=== PATIENT | male | born 1940 | race Caucasian/White ===

== ENCOUNTER 2017-06-04 10:17 | Inpatient (IN) | payer MEDICARE ==
[2017-06-04] VITALS (22 sets, daily range): BP systolic 79–153; BP diastolic 57–106; PULSE 92–111; RESP 9–38; TEMP 96.3–98.1; O2SAT 80–100
--- NOTE | 2017-06-04 10:28 | PD ---
HPI Chief Complaint: shortness of breath Time Seen by Provider: 10:24 Travel History International Travel<30 days: No Contact w/Intl Traveler<30days: No Traveled to known affect area: No History of Present Illness HPI 76-year-old male with history of heavy smoking, currently smokes about a quarter of a pack of cigarettes daily, here for evaluation of 2 days of shortness of breath. Shortest of breath is at rest, worse with exertion. He is also having chest pain which she describes as a muscle ache. Patient also reports cough productive of greenish sputum. No hemoptysis. The patient has not seen a physician in over 12 years, and is not taking any medications. No history of DVT or PE. No known history of cardiac disease. Allergies-Medications (Allergen,Severity, Reaction): Coded Allergies: No Known Allergies (Unverified , 06/04/17) Reported Meds & Prescriptions Reported Meds & Active Scripts Active No Active Prescriptions or Reported Medications Review of Systems Except as stated in HPI: all other systems reviewed are Neg Physical Exam Narrative GENERAL: Well-developed, thin, cachectic appearing, moderate respiratory distress, speaking a few words at a time. SKIN: Focused skin assessment warm/dry. HEAD: Atraumatic. Normocephalic. EYES: Pupils equal and round. No scleral icterus. No injection or drainage. ENT: Mucous membranes pink and moist. NECK: Trachea midline. No JVD. CARDIOVASCULAR: Tachycardic, regular. RESPIRATORY: No accessory muscle use. Moderate respiratory distress. Speaking a few words at a time. Poor air movement bilaterally. Pursed lip breathing. No rales or rhonchi. Protruding ribs. GASTROINTESTINAL: Abdomen soft, non-tender, nondistended. Hepatic and splenic margins not palpable. MUSCULOSKELETAL: No obvious deformities. No clubbing. No cyanosis. No edema. NEUROLOGICAL: Awake and alert. No obvious cranial nerve deficits. Motor grossly within normal limits. Normal speech. PSYCHIATRIC: Appropriate mood and affect; insight and judgment normal. Data Data Last Documented VS Vital Signs Date Time Temp Pulse Resp B/P (MAP) Pulse Ox O2 Delivery O2 Flow Rate FiO2 06/04/17 13:02 110 26 120/84 (96) 90 Nasal Cannula 5.00 06/04/17 10:45 98.1 Orders Orders Complete Blood Count With Diff (06/04/17 10:24) Comprehensive Metabolic Panel (06/04/17 10:24) B-Type Natriuretic Peptide (06/04/17 10:24) Act Partial Throm Time (Ptt) (06/04/17 10:24) Prothrombin Time / Inr (Pt) (06/04/17 10:24) Ckmb (Isoenzyme) Profile (06/04/17 10:24) Troponin I (06/04/17 10:24) Arterial Blood Gas (Abg) (06/04/17 10:24) Iv Access Insert/Monitor (06/04/17 10:24) Ecg Monitoring (06/04/17 10:24) Oximetry (06/04/17 10:24) Oxygen Administration (06/04/17 10:24) Chest, Single Ap (06/04/17 10:24) Sodium Chloride 0.9% Flush (Ns Flush) (06/04/17 10:30) Methylprednisolone So Succ Inj (Solumedr (06/04/17 10:30) Albuterol-Ipratropium Neb (Duoneb Neb) (06/04/17 10:30) CKMB (06/04/17 10:35) CKMB% (06/04/17 10:35) Ct Pulmonary Angiogram (06/04/17 11:25) Aspirin Chew (Aspirin Chew) (06/04/17 11:30) Ct Brain W & W/O Iv Contrast (06/04/17 ) Iohexol 350 Inj (Omnipaque 350 Inj) (06/04/17 12:48) Admit Order (Ed Use Only) (06/04/17 12:54) Heparin Inj (Heparin Inj) (06/04/17 19:15) Heparin Inj (Heparin Inj) (06/04/17 19:15) Heparin-D5w 25,000 U/250 Ml (Heparin-D5w (06/04/17 13:15) Act Partial Throm Time (Ptt) (06/04/17 13:12) Prothrombin Time / Inr (Pt) (06/04/17 13:12) Cbc No Diff, Includes Plts (06/04/17 13:12) Cbc No Diff, Includes Plts (06/07/17 06:00) Act Partial Throm Time (Ptt) (06/04/17 20:12) Occult Blood (Hemoccult) Stool (06/04/17 13:12) Labs Laboratory Tests Test 06/04/17 10:35 06/04/17 10:48 White Blood Count 12.5 TH/MM3 Red Blood Count 4.56 MIL/MM3 Hemoglobin 13.9 GM/DL Hematocrit 42.8 % Mean Corpuscular Volume 93.7 FL Mean Corpuscular Hemoglobin 30.5 PG Mean Corpuscular Hemoglobin Concent 32.5 % Red Cell Distribution Width 13.3 % Platelet Count 281 TH/MM3 Mean Platelet Volume 6.3 FL Neutrophils (%) (Auto) 90.9 % Lymphocytes (%) (Auto) 5.8 % Monocytes (%) (Auto) 3.0 % Eosinophils (%) (Auto) 0.1 % Basophils (%) (Auto) 0.2 % Neutrophils # (Auto) 11.4 TH/MM3 Lymphocytes # (Auto) 0.7 TH/MM3 Monocytes # (Auto) 0.4 TH/MM3 Eosinophils # (Auto) 0.0 TH/MM3 Basophils # (Auto) 0.0 TH/MM3 CBC Comment DIFF FINAL Differential Comment Prothrombin Time 10.9 SEC Prothromb Time International Ratio 1.0 RATIO Activated Partial Thromboplast Time 27.9 SEC Blood Urea Nitrogen 19 MG/DL Creatinine 0.74 MG/DL Random Glucose 170 MG/DL Total Protein 7.7 GM/DL Albumin 3.7 GM/DL Calcium Level 9.5 MG/DL Alkaline Phosphatase 114 U/L Aspartate Amino Transf (AST/SGOT) 86 U/L Alanine Aminotransferase (ALT/SGPT) 83 U/L Total Bilirubin 0.5 MG/DL Sodium Level 136 MEQ/L Potassium Level 4.7 MEQ/L Chloride Level 101 MEQ/L Carbon Dioxide Level 25.3 MEQ/L Anion Gap 10 MEQ/L Estimat Glomerular Filtration Rate 103 ML/MIN Total Creatine Kinase 138 U/L Creatine Kinase MB 12.4 NG/ML Troponin I 1.05 NG/ML B-Type Natriuretic Peptide 661 PG/ML Blood Gas Puncture Site RT RADIAL Blood Gas Patient Temperature 98.6 Blood Gas HCO3 23 mmol/L Blood Gas Base Excess -1.5 mmol/L Blood Gas Oxygen Saturation 97 % Arterial Blood pH 7.37 Arterial Blood Partial Pressure CO2 41 mmHG Arterial Blood Partial Pressure O2 222 mmHG Arterial Blood Oxygen Content 19.0 Vol % Arterial Blood Carboxyhemoglobin 1.5 % Arterial Blood Methemoglobin 0.9 % Blood Gas Hemoglobin 13.6 G/DL Oxygen Delivery Device NONREBREATHER Blood Gas Liter Flow 10 L/M [facility] Medical Decision Making Medical Screen Exam Complete: Yes Emergency Medical Condition: Yes Interpretation(s) EKG: Sinus tachycardia, rate 113, rightward axis, RBBB, Q waves in septal leads , no acute ischemic abnormality. Differential Diagnosis COPD exacerbation, pneumonia, pneumothorax, PE, ACS, pulmonary edema Narrative Course Initial vital signs show heart rate 111, blood pressure 153/106, pulse ox 80% on room air, oral temp of 98.1F. CBC shows to be BC 12.5, hemoglobin 13.9, hematocrit 42.8, platelets 281, neutrophils 90.9%. CMP is remarkable for AST 86, ALT 83, otherwise unremarkable. Troponin is 1.05. Total CK is 138. CK-MB is 12.4. BNP is 661. Chest x-ray: COPD/emphysema. Possible right lung nodule. CT chest recommended. Case discussed with on-call devops consultant Dr. Dietz. I believe that the patient's elevated troponin is likely secondary to hypoxia/demand ischemia. Patient can be admitted here in [place] and will be evaluated by cardiology in consultation. CT pulmonary angiogram ordered to rule out PE. CT head also ordered to rule out any brain metastases as the patient may have lung cancer. Anticoagulation will be held until CT head is resulted. Initial O2 saturation was 80% on room air. Patient was placed on 100% nonrebreather. Patient was given 3 DuoNeb treatments and IV Solu-Medrol with both subjective and objective improvement in respiratory status. Case discussed with hospitalist Dr. Lucio who will admit the patient to her service to the ICU. CT pulmonary angiogram and CT head pending at time of admission. CT pulmonary angiogram: Bilateral pulmonary emboli. Severe emphysema. CT head: Normal exam. Patient will be started on heparin. The patient and the patient's friend whom he lives with were made aware of all findings and plan for admission. Critical Care Narrative Aggregate critical care time was 60 minutes. Time to perform other separately billable procedures was not included in the critical care time. My time did not include minutes spent treating any other patients simultaneously or on activities that did not directly contribute to the patient's treatment. The services I provided to this patient were to treat and/or prevent clinically significant deterioration that could result in: , permanent disability, worsening clinical condition, respiratory failure. I provided critical care services requiring my management, as noted below: Chart data review, documentation time, medication orders and management, vital sign assessments/reviewing monitor data, ordering and reviewing lab tests, ordering and interpreting/reviewing x-rays and diagnostic studies, care of the patient and discussion of the patient with the admitting physicians. Diagnosis Primary Impression: Pulmonary embolism Qualified Codes: I26.99 - Other pulmonary embolism without acute cor pulmonale Additional Impressions: COPD exacerbation Hypoxia Elevated troponin Scripts No Active Prescriptions or Reported Meds Tomy Short MD Jun 04, 2017 10:28
[2017-06-04] MEDS ORDERED: SODIUM CHLORIDE 0.9% FLUSH 10 ML FLUSH IVF PRN (10:30)
[2017-06-04] MEDS ORDERED: methylPREDNISolone SOD SUCC 125 MG/2 ML VIAL IVP ONE (10:30)
[2017-06-04 10:39] LABS: AUTOMATED NEUTROPHIL # 11.4 TH/MM3 (1.8-7.7); BASOPHIL % 0.2 % (0.0-2.0); EOSINOPHIL % 0.1 % (0.0-4.0); HEMATOCRIT 42.8 % (39.0-51.0); LYMPH % 5.8 % (9.0-44.0); LYMPHOCYTE # 0.7 TH/MM3 (1.0-4.8); MEAN CELL VOLUME 93.7 FL (80.0-100.0); MEAN CORPUSCULAR HEMOGLOBIN 30.5 PG (27.0-34.0); MEAN CORPUSCULAR HGB CONC 32.5 % (32.0-36.0); NEUT % 90.9 % (16.0-70.0); PLATELET COUNT 281 TH/MM3 (150-450); RED BLOOD COUNT 4.56 MIL/MM3 (4.50-5.90); RED CELL DISTRIBUTION WIDTH 13.3 % (11.6-17.2); WHITE BLOOD COUNT 12.5 TH/MM3 (4.0-11.0)
[2017-06-04 10:43] LABS: HEMO FLAGS DIFF FINAL
[2017-06-04 10:48] LABS: CHLORIDE 101 MEQ/L (98-107); POTASSIUM 4.7 MEQ/L (3.5-5.1); SODIUM (NA) 136 MEQ/L (136-145)
[2017-06-04 10:52] LABS: ANION GAP 10 MEQ/L (5-15); APTT (PATIENT) 27.9 SEC (24.3-30.1); BICARBONATE 25.3 MEQ/L (21.0-32.0); BLOOD UREA NITROGEN 19 MG/DL (7-18); PROTHROMBIN TIME - PATIENT 10.9 SEC (9.8-11.6)
[2017-06-04 10:55] LABS: ALT (GPT) 83 U/L (12-78); AST (GOT) 86 U/L (15-37); GLOMERULAR FILTRATION RATE 103 ML/MIN (>89)
[2017-06-04] MEDS: RESP: ALBUTEROL 2.5 MG/IPRATROPIUM 0.5 MG NEB (SCH) INH ×3 (10:55→21:30)
[2017-06-04 10:56] LABS: TOTAL BILIRUBIN ADULT 0.5 MG/DL (0.2-1.0)
[2017-06-04 10:57] LABS: CREATINE KINASE 138 U/L (39-308)
[2017-06-04 10:58] LABS: ALKALINE PHOSPHATASE 114 U/L (45-117)
--- NOTE | 2017-06-04 11:01 | RADRPT ---
EXAM DATE/TIME: 06/04/2017 10:48 [facility] COMPARISON: No previous studies available for comparison. INDICATIONS : Shortness of breath x 2 days. MEDICAL HISTORY : Smoker. SURGICAL HISTORY : None. ENCOUNTER: Initial ACUITY: 2 days PAIN SCORE: 6/10 LOCATION: chest FINDINGS: There is hyperinflation and attenuation of lung markings suggesting underlying emphysema. The heart s ize is normal. Aortic calcification is noted. Biapical pleural proximal scarring is present. Overlyin g the right seventh posterior rib at the midclavicular line is a focal density, very subtle but celia rning for a possible spiculated mass. This density measures approximately 1.[address] chest is recomme nded for further evaluation. CONCLUSION: COPD/emphysema. Possible right lung nodule. CT chest recommended. John Paul Evans MD on June 04, 2017 at 10:57 Board Certified Radiologist. This report was verified electronically.
[2017-06-04 11:02] LABS: BLOOD GAS BASE EXCESS -1.5 mmol/L (-2-2); BLOOD GAS CARBOXYHEMOGLOBIN 1.5 % (0-4); BLOOD GAS HCO3 23 mmol/L (22-26); BLOOD GAS METHEMOGLOBIN 0.9 % (0-2); BLOOD GAS O2 HGB SATURATION 97 % (90-100); BLOOD GAS PCO2 41 mmHG (38-42); BLOOD GAS PO2 222 mmHG (61-120); BLOOD GAS TOTAL HGB 13.6 G/DL (12.0-16.0); CRITICAL VALUE NO; DRAW SITE RT RADIAL; LITER FLOW 10 L/M; NUMBER OF ARTERIAL PUNCTURES 1; OXYGEN DEVICE NONREBREATHER; STAT YES; TEMP CORR TO 98.6; ULNAR PULSE PRESENT
[2017-06-04 11:10] LABS: CKMB 12.4 NG/ML (0.5-3.6)
[2017-06-04] MEDS ORDERED: ASPIRIN 81 MG CHEW TAB PO ONE (11:30)
[2017-06-04] MEDS ORDERED: IOHEXOL 350 MG/ML 10 ML VIAL (for RAD DIAG) IVCONTRAST ONE (12:48)
--- NOTE | 2017-06-04 13:03 | RADRPT ---
EXAM DATE/TIME: 06/04/2017 12:43 [facility] COMPARISON: No previous studies available for comparison. INDICATIONS : Evaluate for tumor or possible metastatic disease. IV CONTRAST: 75 cc Omnipaque 350 (iohexol) IV ; Cumulative dose for multiple exams. RADIATION DOSE: 60.75 CTDIvol (mGy) MEDICAL HISTORY : None SURGICAL HISTORY : None. ENCOUNTER: Initial ACUITY: 1 day PAIN SCALE: 0/10 LOCATION: cranial TECHNIQUE: Multiple contiguous axial images were obtained of the head. Using automated exposure control and adj ustment of the mA and/or kV according to patient size, radiation dose was kept as low as reasonably a chievable to obtain optimal diagnostic quality images. DICOM format image data is available electro nically for review and comparison. FINDINGS: CEREBRUM: The ventricles are normal for age. No evidence of midline shift, cerebral edema or blood products. No extra-axial fluid collections are seen. POSTERIOR FOSSA: The cerebellum and brainstem are intact. The 4th ventricle is midline. The cerebellar pontine angle is unremarkable. EXTRACRANIAL: The visualized portion of the orbits is intact. SKULL: The calvaria is intact. No evidence of skull fracture. POST CONTRAST: No abnormal areas of parenchymal or dural enhancement. No evidence of blood-brain barrier breakdown. CONCLUSION: Normal examination. Pb Diaz Jr., MD on June 04, 2017 at 12:58 Board Certified Radiologist. This report was verified electronically.
--- NOTE | 2017-06-04 13:09 | RADRPT ---
EXAM DATE/TIME: 06/04/2017 12:37 [facility] COMPARISON: No previous studies available for comparison. INDICATIONS : Short of breath, productive cough and chest pain for two days. Evaluate for pulmonary embolism. IV CONTRAST: 75 cc Omnipaque 350 (iohexol) IV ; Cumulative dose for multiple exams. RADIATION DOSE: 6.82 CTDIvol (mGy) MEDICAL HISTORY : None SURGICAL HISTORY : None. ENCOUNTER: Initial ACUITY: 2 days PAIN SCALE: 4/10 LOCATION: chest TECHNIQUE: Volumetric scanning of the chest was performed using a pulmonary embolism protocol MIP images were re constructed. Using automated exposure control and adjustment of the mA and/or kV according to patien t size, radiation dose was kept as low as reasonably achievable to obtain optimal diagnostic quality images. DICOM format image data is available electronically for review and comparison. Follow-up recommendations for detected pulmonary nodules are based at a minimum on nodule size and pa tient risk factors according to Fleischner Society Guidelines. FINDINGS: There is severe emphysema identified. There is mild scarring in both lower lobes. No consolidation or mass. Atherosclerotic calcifications of the aorta are identified. Examination demonstrates filling d efects within the bilateral pulmonary arteries compatible with pulmonary embolism. There is clot in t he bilateral upper and lower lobe pulmonary arterial branches as well as right middle lobe branches. There are no pleural or pericardial effusions. CONCLUSION: 1. Bilateral pulmonary emboli. 2. Severe emphysema. John Paul Evans MD on June 04, 2017 at 13:03 Board Certified Radiologist. This report was verified electronically.
[2017-06-04] MEDS ORDERED: HEPARIN SODIUM - IV 10,000 UNITS/10 ML VIAL IV ONE (13:30)
[2017-06-04] MEDS ORDERED: MAGNESIUM HYDROXIDE SUSP 30 ML CUP PO PRN (13:30)
[2017-06-04] MEDS ORDERED: RESP: ALBUTEROL 2.5 MG/3 ML NEB (PRN) INH (13:30)
[2017-06-04] MEDS ORDERED: NALOXONE HCL 0.4 MG/ML AMP IV PRN (13:30)
[2017-06-04] MEDS ORDERED: BISACODYL 10 MG SUPP RECTAL PRN (13:30)
[2017-06-04] MEDS ORDERED: ONDANSETRON HCL 4 MG/2 ML VIAL IVP PRN (13:30)
[2017-06-04] MEDS ORDERED: ACETAMINOPHEN 325 MG TAB PO PRN (13:30)
[2017-06-04] MEDS ORDERED: SODIUM CHLORIDE 0.9% FLUSH 10 ML FLUSH IV FLUSH PRN (13:30)
[2017-06-04] MEDS ORDERED: SENNOSIDES 8.6 MG TAB PO PRN (13:30)
[2017-06-04] MEDS ORDERED: LACTULOSE SYRUP 20 GM/30 ML CUP PO PRN (13:30)
[2017-06-04] MEDS: HEPARIN-D5W 25,000 U/250 ML 250 ML IV PRN (13:44)
--- NOTE | 2017-06-04 14:35 | HHI.HP ---
HPI Service [facility] Primary Care Physician No Primary Care Physician Admission Diagnosis Acute respiratory failure, bilateral pulmonary embolism, elevated troponin Diagnoses: (1) Acute respiratory failure with hypoxemia (2) Pulmonary embolism (3) Elevated troponin (4) Severe protein-calorie malnutrition (5) COPD (chronic obstructive pulmonary disease) Travel History International Travel<30 Days: No Contact w/Intl Traveler <30 Da: No Traveled to Known Affected Are: No History of Present Illness This is a pleasant 77-year-old male who presents to the ER for a 5 day history of shortness of breath and malaise. The patient denies cough, fever or wheezing. He does have a 60+ pack year history of tobacco use, but states he quit smoking heavily about 2-3 months ago and now only smokes about three quarters of a pack a day. The patient states that he has not been as mobile of late and has been laying around a lot more. In the emergency department he was found to be hypoxic with saturations in the 80s. A CTA revealed bilateral pulmonary emboli. He was started on heparin drip. He has now been weaned down to 5 L nasal cannula and states that he feels much better. The patient denies any recent weight loss and states that he has been gaining weight. He states that he had a colonoscopy "years ago" that was unremarkable but has not had one in the past 10 years. The patient denies any previous history of DVTs. Denies any recent travel or trauma. He does not go to the [facility] clinic and does not see doctors normally. The patient does endorse a bilateral chest pain which is both aching and sharp in nature and worse when he coughs or moves. The patient was initially on nonrebreather mask in the emergency department but then weaned to 5 L nasal cannula. He has been initiated on a heparin drip. He states he feels much better and is no longer short of breath. Review of Systems Constitutional: DENIES: Fever, Weight loss, Chills Eyes: DENIES: Diplopia Ears, nose, mouth, throat: DENIES: Throat pain, Hoarseness Respiratory: COMPLAINS OF: Shortness of breath, DENIES: Cough, Sputum production Cardiovascular: COMPLAINS OF: Chest pain, Dyspnea on Exertion Gastrointestinal: DENIES: Nausea, Vomiting Genitourinary: DENIES: Urgency, Dysuria Musculoskeletal: COMPLAINS OF: Joint pain (b/l shoulders), DENIES: Joint Swelling Integumentary: DENIES: Rash Hematologic/lymphatic: DENIES: Lymphadenopathy Neurologic: DENIES: Abnormal gait, Headache Psychiatric: DENIES: Anxiety, Confusion Past Family Social History Past Medical History Bilateral shoulder tears Long-term smoker Denies cardiac or lung problems but does not see a doctor regularly Past Surgical History None Reported Medications Allergies Coded Allergies Type Severity Reaction Last Updated Verified No Known Allergies 06/04/17 No Active Scripts Medications Dose Route/Sig Max Daily Dose Days Date Category No Active Prescriptions or Reported Medications Rx Allergies: Coded Allergies: No Known Allergies (Unverified , 06/04/17) Family History Negative for DVT Social History He states he drank heavily about 15 years ago but quit. Tobacco use as per history of present illness. He lives alone. He has an adult daughter with whom he is estranged. Physical Exam Vital Signs Vital Signs Date Time Temp Pulse Resp B/P (MAP) Pulse Ox O2 Delivery O2 Flow Rate FiO2 06/04/17 14:06 06/04/17 13:02 110 26 120/84 (96) 90 Nasal Cannula 5.00 06/04/17 12:04 109 24 109/87 (94) 89 Nasal Cannula 5.00 06/04/17 11:23 103 24 135/100 (112) 100 Aerosol Mask 06/04/17 10:45 98.1 103 24 138/94 (109) 100 Non-Rebreather 10.00 06/04/17 10:31 90 06/04/17 10:31 Non-Rebreather 06/04/17 10:28 98.1 111 26 153/106 (122) 80 Physical Exam GENERAL: Extremely cachectic appearing very pleasant male patient who appears at least 20 years older than his chronologic age. SKIN: Warm and dry. HEAD: Normocephalic. EYES: No scleral icterus. No injection or drainage. NECK: Supple, trachea midline. No JVD or lymphadenopathy. CARDIOVASCULAR: Regular rate and rhythm without murmurs, gallops, or rubs. RESPIRATORY: Breath sounds equal and clear to auscultation bilaterally with prolonged expiratory phase but no wheezing or rhonchi. No accessory muscle use on 5 L nasal cannula. GASTROINTESTINAL: Abdomen scaphoid, soft, non-tender, nondistended. EXTREMITIES: 1+ pitting pedal edema bilaterally. NEUROLOGICAL: Awake, alert, and oriented x 3. Non-focal. Laboratory Laboratory Tests Test 06/04/17 10:35 06/04/17 10:48 White Blood Count 12.5 Red Blood Count 4.56 Hemoglobin 13.9 Hematocrit 42.8 Mean Corpuscular Volume 93.7 Mean Corpuscular Hemoglobin 30.5 Mean Corpuscular Hemoglobin Concent 32.5 Red Cell Distribution Width 13.3 Platelet Count 281 Mean Platelet Volume 6.3 Neutrophils (%) (Auto) 90.9 Lymphocytes (%) (Auto) 5.8 Monocytes (%) (Auto) 3.0 Eosinophils (%) (Auto) 0.1 Basophils (%) (Auto) 0.2 Neutrophils # (Auto) 11.4 Lymphocytes # (Auto) 0.7 Monocytes # (Auto) 0.4 Eosinophils # (Auto) 0.0 Basophils # (Auto) 0.0 CBC Comment DIFF FINAL Differential Comment Prothrombin Time 10.9 Prothromb Time International Ratio 1.0 Activated Partial Thromboplast Time 27.9 Blood Urea Nitrogen 19 Creatinine 0.74 Random Glucose 170 Total Protein 7.7 Albumin 3.7 Calcium Level 9.5 Alkaline Phosphatase 114 Aspartate Amino Transf (AST/SGOT) 86 Alanine Aminotransferase (ALT/SGPT) 83 Total Bilirubin 0.5 Sodium Level 136 Potassium Level 4.7 Chloride Level 101 Carbon Dioxide Level 25.3 Anion Gap 10 Estimat Glomerular Filtration Rate 103 Total Creatine Kinase 138 Creatine Kinase MB 12.4 Troponin I 1.05 B-Type Natriuretic Peptide 661 Blood Gas Puncture Site RT RADIAL Blood Gas Patient Temperature 98.6 Blood Gas HCO3 23 Blood Gas Base Excess -1.5 Blood Gas Oxygen Saturation 97 Arterial Blood pH 7.37 Arterial Blood Partial Pressure CO2 41 Arterial Blood Partial Pressure O2 222 Arterial Blood Oxygen Content 19.0 Arterial Blood Carboxyhemoglobin 1.5 Arterial Blood Methemoglobin 0.9 Blood Gas Hemoglobin 13.6 Oxygen Delivery Device NONREBREATHER Blood Gas Liter Flow 10 Result Diagram: 06/04/17 1035 06/04/17 1035 Imaging CTA shows bilateral pulmonary embolisms with thrombus in the bilateral upper and lower lobe pulmonary arterial branches as well as the right middle lobe branch. Also shows severe emphysema. No masses or nodules. Chest x-ray reveals hyperinflation possible spiculated mass overlying the right seventh posterior rib at the midclavicular line. Head CT is a normal examination. EKG shows sinus tachycardia with a rate of 113, rightward axis, right bundle branch block Q waves in the septal leads but no acute ST or T-wave changes. Caprini VTE Risk Assessment Caprini VTE Risk Assessment: Mod/High Risk (score >= 2) Caprini Risk Assessment Model Point Value = 1 Point Value = 2 Point Value = 3 Point Value = 5 Age 41-60 Minor surgery BMI > 25 kg/m2 Swollen legs Varicose veins or History of unexplained or recurrent spontaneous Oral contraceptives or hormone replacement Sepsis (< 1 month) Serious lung disease, including pneumonia (< 1 month) Abnormal pulmonary function Acute myocardial infarction Congestive heart failure (< 1 month) History of inflammatory bowel disease Medical patient at bed rest Age 61-74 Arthroscopic surgery Major open surgery (> 45 min) Laparoscopic surgery (> 45 min) Malignancy Confined to bed (> 72 hours) Immobilizing plaster cast Central venous access Age >= 75 History of VTE Family history of VTE Factor V Leiden Prothrombin [id number] Lupus anticoagulant Anticardiolipin antibodies Elevated serum homocysteine Heparin-induced thrombocytopenia Other congenital or acquired thrombophilia Stroke (< 1 month) Elective arthroplasty Hip, pelvis, or leg fracture Acute spinal cord injury (< 1 month) Prophylaxis Regimen Total Risk Factor Score Risk Level Prophylaxis Regimen 0-1 Low Early ambulation 2 Moderate Order ONE of the following: *Sequential Compression Device (SCD) *Heparin 5000 units SQ BID 3-4 Higher Order ONE of the following medications: *Heparin 5000 units SQ TID *Enoxaparin/Lovenox 40 mg SQ daily (WT < 150 kg, CrCl > 30 mL/min) *Enoxaparin/Lovenox 30 mg SQ daily (WT < 150 kg, CrCl > 10-29 mL/min) *Enoxaparin/Lovenox 30 mg SQ BID (WT < 150 kg, CrCl > 30 mL/min) AND/OR *Sequential Compression Device (SCD) 5 or more Highest Order ONE of the following medications: *Heparin 5000 units SQ TID (Preferred with Epidurals) *Enoxaparin/Lovenox 40 mg SQ daily (WT < 150 kg, CrCl > 30 mL/min) *Enoxaparin/Lovenox 30 mg SQ daily (WT < 150 kg, CrCl > 10-29 mL/min) *Enoxaparin/Lovenox 30 mg SQ BID (WT < 150 kg, CrCl > 30 mL/min) AND *Sequential Compression Device (SCD) Assessment and Plan Assessment and Plan A pleasant 77-year-old male, long-term smoker presents with dyspnea and acute bilateral PE -Acute bilateral PE with acute respiratory failure. Initially on nonrebreather mask in the emergency department now weaned to 5 L nasal cannula. On exam he appears to be breathing easily. We'll continue with heparin drip, start Coumadin. Consideration to change to novel anticoagulant depending on how he progresses respiratory status nixon. Will check Doppler ultrasound of bilateral lower extremities as he does have edema to evaluate for any DVT. Suspect the PE may have been provoked by his relatively immobile status of late. However I did recommend him to [facility] which she is overdue for. -Cachexia and severe malnutrition. Will add ensure shakes. -Emphysema and COPD by imaging. On exam no wheezing. We'll continue with Solu- Medrol and duo nebs likely weaned to prednisone tomorrow. -prison tobacco use, the patient has cut down and he was encouraged to quit. Problem Qualifiers (1) Pulmonary embolism: Qualified Codes: I26.99 - Other pulmonary embolism without acute cor pulmonale Isabell Lucio MD Jun 04, 2017 14:35
[2017-06-04] MEDS ORDERED: CHLORHEXIDINE GLUCONATE 2 % 1 PACK (2 CLOTHS)(extra cloths) TOPICAL PRN (15:45)
[2017-06-04] MEDS ORDERED: WARFARIN SOD 4 MG TAB PO SCH (16:00)
[2017-06-04] MEDS ORDERED: methylPREDNISolone SOD SUCC 125 MG/2 ML VIAL IVP SCH (16:00)
--- NOTE | 2017-06-04 17:24 | RADRPT ---
EXAM DATE/TIME: 06/04/2017 16:36 [facility] COMPARISON: No previous studies available for comparison. INDICATIONS : Pulmonary embolism. MEDICAL HISTORY : Dyspnea. Pulmonary embolism. SURGICAL HISTORY : None. ENCOUNTER: Initial ACUITY: 2 day PAIN SCORE: 2/10 LOCATION: Bilateral legs. TECHNIQUE: Venous ultrasound of the left and right leg was performed from the inguinal ligament to the proximal calf. Real-time, color Doppler and spectral tracing, compression and augmentation techniques were us ed. FINDINGS: There is occlusive thrombus in the right deep femoral vein focally best on sagittal images. The commo n femoral, femoral, popliteal and peroneal veins are patent bilaterally. There is no documented flow in the posterior tibial veins which were compressible. No limitations related to adjacent atheroscler otic disease and sluggish flow. The iliac veins are patent. CONCLUSION: Focal occlusive thrombus in the right deep femoral vein and no documented flow but normal compressibi lity bilateral posterior tibial veins. John Paul Evans MD on June 04, 2017 at 17:18 Board Certified Radiologist. This report was verified electronically.
[2017-06-04] MEDS ORDERED: HEPARIN SODIUM - IV 10,000 UNITS/10 ML VIAL IV PRN (19:15)
[2017-06-04] MEDS ORDERED: HEPARIN - 10,000 UNITS/ML IV ADDITIVE IV PRN (19:15)
[2017-06-04] MEDS: SODIUM CHLORIDE 0.9% FLUSH 10 ML FLUSH IV FLUSH SCH (20:28)
[2017-06-04 20:57] LABS: APTT (PATIENT) 62.6 SEC (24.3-30.1)
[2017-06-05] VITALS (27 sets, daily range): BP systolic 77–115; BP diastolic 52–75; PULSE 72–100; RESP 21–38; TEMP 97.1–98.3; O2SAT 90–97
[2017-06-05] MEDS: RESP: ALBUTEROL 2.5 MG/IPRATROPIUM 0.5 MG NEB (SCH) INH ×4 (03:42→22:09)
[2017-06-05 03:47] LABS: APTT (PATIENT) 46.9 SEC (24.3-30.1)
[2017-06-05] MEDS: CHLORHEXIDINE GLUCONATE 2 % 1 PACK (2 CLOTHS)(taper/protocol) TOPICAL SCH (04:00)
[2017-06-05] MEDS: SODIUM CHLORIDE 0.9% FLUSH 10 ML FLUSH IV FLUSH SCH ×2 (09:27→22:03)
--- NOTE | 2017-06-05 10:32 | ECHRPT ---
Indication: Pulmonary heart disease, unspecified CONCLUSIONS Poorly imaged. Unable to assess left ventricular size, function. Poorly imaged. Unable to assess right ventricular size, function. Valvular function also cannot be adequately assessed on the basis of this study. BP: 95 / 64 HR: 82 Rhythm: Technical Quality:Very Poor FINDINGS LEFT VENTRICLE Poorly imaged. Unable to assess left ventricular size, function. RIGHT VENTRICLE Poorly imaged. Unable to assess right ventricular size, function. LEFT ATRIUM Poorly imaged. RIGHT ATRIUM Poorly imaged. ATRIAL SEPTUM Poorly imaged. AORTA Poorly imaged. MITRAL VALVE Poorly imaged. AORTIC VALVE Poorly imaged. TRICUSPID VALVE Poorly imaged. PULMONARY VALVE Not imaged. Rene Olson MD (Electronically Signed) Final Date:05 June 2017 10:32
[2017-06-05] MEDS ORDERED: WARFARIN SOD 7.5 MG TAB PO ONE (12:00)
[2017-06-05] MEDS ORDERED: PROMETHAZINE INJ 25 MG/ML VIAL IM PRN (13:15)
--- NOTE | 2017-06-05 20:14 | EKG ---
Date Performed: 06/04/2017 Time Performed: 10:20:03 PTAGE: 76 years EKG: SINUS TACHYCARDIA RIGHT BUNDLE BRANCH BLOCK SEPTAL MYOCARDIAL INFARCTION ABNORMAL ECG NO PREVIOUS TRACING DOCTOR: Molly Joe Interpretating Date/Time 06/05/2017 20:12:26
[2017-06-05] MEDS: predniSONE 20 MG TAB PO SCH (22:03)
[2017-06-05] MEDS: HEPARIN-D5W 25,000 U/250 ML 250 ML IV PRN (22:18)
[2017-06-05 22:50] LABS: APTT (PATIENT) 42.2 SEC (24.3-30.1)
--- NOTE | 2017-06-05 23:49 | HHI.PR ---
Subjective Remarks pt seen this morning. Says he is feeling a little better. Still very weak. Objective Vital Signs Date Time Temp Pulse Resp B/P (MAP) Pulse Ox O2 Delivery O2 Flow Rate FiO2 06/05/17 22:10 96 Nasal Cannula 3.00 06/05/17 22:00 84 26 89/52 (64) 96 06/05/17 21:00 90 25 82/54 (63) 96 06/05/17 20:00 98.0 94 29 115/75 (88) 93 06/05/17 19:00 90 25 105/65 (78) 96 06/05/17 18:00 94 22 110/63 (79) 95 06/05/17 18:00 90 06/05/17 18:00 94 06/05/17 17:00 90 06/05/17 17:00 90 28 103/57 (72) 94 06/05/17 16:00 92 06/05/17 16:00 92 24 95/57 (70) 94 06/05/17 15:00 88 06/05/17 15:00 98.3 88 25 99/62 (74) 97 06/05/17 14:00 90 06/05/17 14:00 90 23 77/55 (62) 93 06/05/17 13:00 100 26 113/67 (82) 91 06/05/17 13:00 100 06/05/17 12:00 76 06/05/17 11:00 80 06/05/17 11:00 80 24 112/71 (85) 96 06/05/17 11:00 80 06/05/17 10:00 78 06/05/17 09:16 96 Nasal Cannula 3.00 06/05/17 09:00 76 06/05/17 08:01 76 06/05/17 08:00 88 06/05/17 07:00 72 06/05/17 07:00 98.2 72 24 95 06/05/17 07:00 72 24 95 06/05/17 06:00 82 06/05/17 05:00 76 06/05/17 04:00 74 06/05/17 03:00 92 06/05/17 03:00 94 38 90 06/05/17 02:00 80 06/05/17 01:00 78 06/05/17 01:00 78 21 95/64 (74) 95 06/05/17 00:00 94 06/05/17 00:00 97.1 90 25 107/71 (83) 93 I/O 06/05/17 06/05/17 06/05/17 06/06/17 06/06/17 06/06/17 06:59 14:59 22:59 06:59 14:59 22:59 Intake Total 73.4 ml 45 ml Balance 73.4 ml 45 ml IV Total 73.4 ml 45 ml # Voids 1 1 Result Diagram: 06/04/17 1035 06/04/17 1035 Objective Remarks GENERAL: sitting up in bed.appears somewhat tachypneic SKIN: Warm and dry. HEAD: Normocephalic. EYES: No scleral icterus. No injection or drainage. NECK: Supple, trachea midline. No JVD CARDIOVASCULAR: Regular rate and rhythm without murmurs, gallops, or rubs. RESPIRATORY: Breath sounds equal bilaterally. No accessory muscle use. GASTROINTESTINAL: Abdomen soft, non-tender, nondistended. MUSCULOSKELETAL: No cyanosis, or edema. BACK: Nontender without obvious deformity. No CVA tenderness. A/P Assessment and Plan ==06/05/17========= Acute pulmonary embolus in. Still tachypneic. Continue heparin drip. Start warfarin. Home oxygen evaluation. Physical therapy ordered. A pleasant 77-year-old male, long-term smoker presents with dyspnea and acute bilateral PE //Acute bilateral PE with acute respiratory failure. Initially on nonrebreather mask in the emergency department now weaned to 5 L nasal cannula. On exam he appears to be breathing easily. We'll continue with heparin drip, start Coumadin. Consideration to change to novel anticoagulant depending on how he progresses respiratory status nixon. Will check Doppler ultrasound of bilateral lower extremities as he does have edema to evaluate for any DVT. Suspect the PE may have been provoked by his relatively immobile status of late. However I did recommend him [facility] which she is [facility] for. //Cachexia and severe malnutrition. Will add ensure shakes. //Emphysema and COPD by imaging. On exam no wheezing. We'll continue with Solu -Medrol and duo nebs likely weaned to prednisone tomorrow. 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 Discharge Planning awaiting PT recommendations.doubt that patient could administer Lovenox bridge at home. Anthony John MD Jun 05, 2017 23:49
[2017-06-06] VITALS (28 sets, daily range): BP systolic 82–153; BP diastolic 32–81; PULSE 60–98; RESP 19–28; TEMP 97.5–98.4; O2SAT 92–99
[2017-06-06] MEDS: RESP: ALBUTEROL 2.5 MG/IPRATROPIUM 0.5 MG NEB (SCH) INH ×4 (03:32→22:30)
[2017-06-06] MEDS: CHLORHEXIDINE GLUCONATE 2 % 1 PACK (2 CLOTHS)(taper/protocol) TOPICAL SCH (04:00)
[2017-06-06 04:59] LABS: APTT (PATIENT) 49.9 SEC (24.3-30.1)
[2017-06-06 08:04] LABS: CHLORIDE 99 MEQ/L (98-107); POTASSIUM 4.4 MEQ/L (3.5-5.1); SODIUM (NA) 134 MEQ/L (136-145)
[2017-06-06 08:20] LABS: AUTOMATED NEUTROPHIL # 11.5 TH/MM3 (1.8-7.7); BASOPHIL # 0.1 TH/MM3 (0-0.2); BASOPHIL % 0.5 % (0.0-2.0); HEMATOCRIT 35.7 % (39.0-51.0); LYMPH % 3.6 % (9.0-44.0); LYMPHOCYTE # 0.5 TH/MM3 (1.0-4.8); MEAN CELL VOLUME 94.9 FL (80.0-100.0); MEAN CORPUSCULAR HEMOGLOBIN 30.9 PG (27.0-34.0); MEAN CORPUSCULAR HGB CONC 32.6 % (32.0-36.0); MONO % 4.8 % (0.0-8.0); NEUT % 91.1 % (16.0-70.0); PLATELET COUNT 229 TH/MM3 (150-450); RED BLOOD COUNT 3.77 MIL/MM3 (4.50-5.90); WHITE BLOOD COUNT 12.7 TH/MM3 (4.0-11.0)
[2017-06-06 08:22] LABS: ALKALINE PHOSPHATASE 89 U/L (45-117); ALT (GPT) 104 U/L (12-78); ANION GAP 8 MEQ/L (5-15); AST (GOT) 81 U/L (15-37); BICARBONATE 27.4 MEQ/L (21.0-32.0); BLOOD UREA NITROGEN 26 MG/DL (7-18); GLOMERULAR FILTRATION RATE 149 ML/MIN (>89); TOTAL BILIRUBIN ADULT 0.4 MG/DL (0.2-1.0)
[2017-06-06 08:23] LABS: HEMO FLAGS DIFF FINAL
[2017-06-06] MEDS: SODIUM CHLORIDE 0.9% FLUSH 10 ML FLUSH IV FLUSH SCH ×2 (08:33→21:33)
[2017-06-06] MEDS: predniSONE 20 MG TAB PO SCH ×2 (08:34→21:33)
[2017-06-06] MEDS: WARFARIN SOD 5 MG TAB PO SCH (16:45)
[2017-06-06] MEDS ORDERED: DOCUSATE SODIUM 50 MG/SENNA 8.6 MG TAB PO ONE (20:15)
--- NOTE | 2017-06-06 22:48 | HHI.PR ---
Subjective Remarks pt seen this morning. Says he is feeling a little better. Still very weak. Objective Vital Signs Date Time Temp Pulse Resp B/P (MAP) Pulse Ox O2 Delivery O2 Flow Rate FiO2 06/06/17 18:01 86 22 104/51 (68) 96 06/06/17 17:01 86 25 93 06/06/17 16:01 82 22 106/60 (75) 95 06/06/17 15:01 84 23 105/59 (74) 96 06/06/17 15:01 84 23 96 06/06/17 14:01 84 21 108/32 (57) 96 06/06/17 13:00 84 25 95 06/06/17 12:01 98.4 88 27 104/77 (86) 93 06/06/17 11:01 90 23 143/68 (93) 96 06/06/17 10:00 72 28 106/64 (78) 95 06/06/17 09:00 74 26 133/67 (89) 95 06/06/17 08:46 99 Nasal Cannula 3.00 06/06/17 08:00 72 26 153/81 (105) 96 06/06/17 07:00 98.3 64 25 143/74 (97) 98 06/06/17 06:00 66 06/06/17 06:00 66 20 147/78 (101) 97 06/06/17 05:00 60 25 85/60 (68) 95 06/06/17 04:00 72 06/06/17 04:00 97.5 72 19 137/72 (93) 98 06/06/17 03:00 78 24 130/75 (93) 96 06/06/17 02:00 74 06/06/17 02:00 74 24 115/68 (84) 97 06/06/17 01:00 74 24 99/58 (72) 97 06/06/17 00:00 76 06/06/17 00:00 98.0 76 24 100/61 (74) 97 06/05/17 23:00 80 27 115/70 (85) 97 I/O 06/05/17 06/05/17 06/05/17 06/06/17 06/06/17 06/06/17 06:59 14:59 22:59 06:59 14:59 22:59 Intake Total 73.4 ml 45 ml 100 ml Output Total 550 ml 400 ml Balance 73.4 ml 45 ml -450 ml -400 ml Intake Oral 100 ml IV Total 73.4 ml 45 ml Output Urine Total 550 ml 400 ml Stool Total 0 ml # Voids 1 1 4 Result Diagram: 06/06/170 06/06/17429 Objective Remarks GENERAL: sitting up in bed.appearsto be breathing comfortably today. SKIN: Warm and dry. HEAD: Normocephalic. EYES: No scleral icterus. No injection or drainage. NECK: Supple, trachea midline. No JVD CARDIOVASCULAR: Regular rate and rhythm without murmurs, gallops, or rubs. RESPIRATORY: Breath sounds equal bilaterally. No accessory muscle use. GASTROINTESTINAL: Abdomen soft, non-tender, nondistended. MUSCULOSKELETAL: No cyanosis, or edema. BACK: Nontender without obvious deformity. No CVA tenderness. A/P Assessment and Plan ==06/06/17========= Acute pulmonary embolism. Heart rate improving, now in the 80s. INR subtherapeutic at 1.0. Continues on heparin drip for bridging. Appreciate physical therapy assistance. Discussed with physical therapy. Patient would likely benefit from SNF. A pleasant 77-year-old male, long-term smoker presents with dyspnea and acute bilateral PE //Acute bilateral PE with acute respiratory failure. Initially on nonrebreather mask in the emergency department now weaned to 5 L nasal cannula. On exam he appears to be breathing easily. We'll continue with heparin drip, start Coumadin. Consideration to change to novel anticoagulant depending on how he progresses respiratory status nixon. Will check Doppler ultrasound of bilateral lower extremities as he does have edema to evaluate for any DVT. Suspect the PE may have been provoked by his relatively immobile status of late. However I did recommend him to [facility] which she is overdue for. //Cachexia and severe malnutrition. Will add ensure shakes. //Emphysema and COPD by imaging. On exam no wheezing. We'll continue with Solu -Medrol and duo nebs likely weaned to prednisone tomorrow. 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 Discharge Planning likely discharge tomorrow to SNF when approved. Anthony John MD Jun 06, 2017 22:48
[2017-06-07] VITALS (41 sets, daily range): BP systolic 64–167; BP diastolic 51–91; PULSE 58–116; RESP 11–41; TEMP 97.5–98; O2SAT 86–99
[2017-06-07] MEDS: RESP: ALBUTEROL 2.5 MG/IPRATROPIUM 0.5 MG NEB (SCH) INH ×4 (03:58→21:52)
[2017-06-07] MEDS: CHLORHEXIDINE GLUCONATE 2 % 1 PACK (2 CLOTHS)(taper/protocol) TOPICAL SCH (04:00)
[2017-06-07 05:17] LABS: AUTOMATED NEUTROPHIL # 9.9 TH/MM3 (1.8-7.7); BASOPHIL % 0.2 % (0.0-2.0); EOSINOPHIL % 0.1 % (0.0-4.0); HEMATOCRIT 36.8 % (39.0-51.0); LYMPH % 4.3 % (9.0-44.0); LYMPHOCYTE # 0.5 TH/MM3 (1.0-4.8); MEAN CELL VOLUME 95.1 FL (80.0-100.0); MEAN CORPUSCULAR HEMOGLOBIN 31.2 PG (27.0-34.0); MEAN CORPUSCULAR HGB CONC 32.8 % (32.0-36.0); NEUT % 91.4 % (16.0-70.0); PLATELET COUNT 251 TH/MM3 (150-450); RED BLOOD COUNT 3.87 MIL/MM3 (4.50-5.90); RED CELL DISTRIBUTION WIDTH 13.8 % (11.6-17.2); WHITE BLOOD COUNT 10.8 TH/MM3 (4.0-11.0)
[2017-06-07 05:22] LABS: HEMO FLAGS DIFF FINAL
[2017-06-07 05:32] LABS: BICARBONATE 30.6 MEQ/L (21.0-32.0); MAGNESIUM 1.9 MG/DL (1.5-2.5); POTASSIUM 5.4 MEQ/L (3.5-5.1)
[2017-06-07 05:33] LABS: PROTHROMBIN TIME - PATIENT 23.5 SEC (9.8-11.6)
[2017-06-07 05:34] LABS: INTERNATIONAL NORMALIZED RATIO 2.1 RATIO
[2017-06-07 05:35] LABS: APTT (PATIENT) GREATER THAN 153.4 SEC (24.3-30.1)
[2017-06-07 07:06] LABS: APTT (PATIENT) 34.2 SEC (24.3-30.1)
[2017-06-07] MEDS: SODIUM CHLORIDE 0.9% FLUSH 10 ML FLUSH IV FLUSH SCH ×2 (09:00→21:05)
[2017-06-07] MEDS: predniSONE 20 MG TAB PO SCH ×2 (09:06→21:05)
--- NOTE | 2017-06-07 10:23 | HHI.PR ---
Subjective Remarks pt says he feels well. no co. sob much improved. no n/v. no bm yet. no abd pain. lax given Objective Vital Signs Date Time Temp Pulse Resp B/P (MAP) Pulse Ox O2 Delivery O2 Flow Rate FiO2 06/07/17 08:01 97.8 78 25 103/74 (84) 95 06/07/17 07:01 70 28 81/71 (74) 94 06/07/17 06:20 62 06/07/17 06:01 68 21 81/56 (64) 97 06/07/17 05:01 58 21 93/65 (74) 98 06/07/17 04:01 97.5 58 17 103/78 (86) 99 06/07/17 04:00 58 06/07/17 03:01 78 24 106/75 (85) 98 06/07/17 02:01 68 23 89/63 (72) 96 06/07/17 02:00 68 06/07/17 01:01 86 38 102/91 (95) 92 06/07/17 00:01 98.0 78 25 96/71 (79) 94 06/07/17 00:00 84 06/06/17 23:01 70 24 93/68 (76) 94 06/06/17 22:30 97 Nasal Cannula 3.00 06/06/17 22:01 72 25 82/66 (71) 97 06/06/17 22:00 84 06/06/17 21:01 90 28 106/81 (89) 93 06/06/17 20:20 98.3 86 28 88/67 (74) 92 06/06/17 20:00 90 06/06/17 19:01 98 25 123/67 (85) 92 06/06/17 18:01 86 22 104/51 (68) 96 06/06/17 17:01 86 25 93 06/06/17 16:01 82 22 106/60 (75) 95 06/06/17 15:01 84 23 105/59 (74) 96 06/06/17 15:01 84 23 96 06/06/17 14:01 84 21 108/32 (57) 96 06/06/17 13:00 84 25 95 06/06/17 12:01 98.4 88 27 104/77 (86) 93 06/06/17 11:01 90 23 143/68 (93) 96 I/O 06/06/17 06/06/17 06/06/17 06/07/17 06/07/17 06/07/17 06:59 14:59 22:59 06:59 14:59 22:59 Intake Total 100 ml 320 ml 120 ml 69.9 ml Output Total 550 ml 400 ml 1000 ml Balance -450 ml -80 ml -880 ml 69.9 ml Intake Oral 100 ml 320 ml 120 ml IV Total 69.9 ml Output Urine Total 550 ml 400 ml 1000 ml Stool Total 0 ml # Voids 6 # Bowel Movements 0 Result Diagram: 06/07/1741406/07/17414 Objective Remarks GENERAL: sitting up in bed. breathing comfortably. SKIN: Warm and dry. HEAD: Normocephalic. EYES: No scleral icterus. No injection or drainage. NECK: Supple, trachea midline. No JVD CARDIOVASCULAR: Regular rate and rhythm without murmurs, gallops, or rubs. RESPIRATORY: Breath sounds equal bilaterally. No accessory muscle use. GASTROINTESTINAL: Abdomen soft, non-tender, nondistended. Positive bowel sounds. MUSCULOSKELETAL: No cyanosis, or edema. BACK: Nontender without obvious deformity. No CVA tenderness. A/P Assessment and Plan ==06/07/17========= Acute pulmonary embolism. Heart rate improving, now in the 70s. INR 2.1 - suspect eroneous result given orther labs. recheck. - Continues on heparin drip for bridging. //Hyperkalemia. Potassium 5.4 Expect secondary to hemolysis. Labs will be repeated. //Transaminitis. Mild. Hepatitis profile pending. A pleasant 77-year-old male, long-term smoker presents with dyspnea and acute bilateral PE //Acute bilateral PE with acute respiratory failure. Initially on nonrebreather mask in the emergency department now weaned to 5 L nasal cannula. On exam he appears to be breathing easily. We'll continue with heparin drip, start Coumadin. Consideration to change to novel anticoagulant depending on how he progresses respiratory status nixon. Will check Doppler ultrasound of bilateral lower extremities as he does have edema to evaluate for any DVT. Suspect the PE may have been provoked by his relatively immobile status of late. However I did recommend him to get [facility] which she is overdue for. //Cachexia and severe malnutrition. Will add ensure shakes. //Emphysema and COPD by imaging. On exam no wheezing. We'll continue with Solu -Medrol and duo nebs likely weaned to prednisone tomorrow. 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 Discharge Planning likely discharge tomorrow to SNF when approved. Anthony John MD Jun 07, 2017 10:23
[2017-06-07 10:37] LABS: AUTOMATED NEUTROPHIL # 8.1 TH/MM3 (1.8-7.7); BASOPHIL # 0.2 TH/MM3 (0-0.2); BASOPHIL % 1.8 % (0.0-2.0); EOSINOPHIL % 0.1 % (0.0-4.0); HEMO FLAGS DIFF FINAL; LYMPHOCYTE # 0.9 TH/MM3 (1.0-4.8); MEAN CELL VOLUME 93.8 FL (80.0-100.0); MEAN CORPUSCULAR HEMOGLOBIN 30.5 PG (27.0-34.0); MEAN CORPUSCULAR HGB CONC 32.6 % (32.0-36.0); MONO % 5.6 % (0.0-8.0); NEUT % 83.5 % (16.0-70.0); PLATELET COUNT 274 TH/MM3 (150-450); RED BLOOD COUNT 4.16 MIL/MM3 (4.50-5.90); RED CELL DISTRIBUTION WIDTH 13.9 % (11.6-17.2); WHITE BLOOD COUNT 9.8 TH/MM3 (4.0-11.0)
[2017-06-07 10:50] LABS: INTERNATIONAL NORMALIZED RATIO 1.9 RATIO; PROTHROMBIN TIME - PATIENT 21.7 SEC (9.8-11.6)
[2017-06-07] MEDS ORDERED: DOCUSATE SODIUM 50 MG/SENNA 8.6 MG TAB PO ONE (11:00)
[2017-06-07 11:28] LABS: BICARBONATE 29.8 MEQ/L (21.0-32.0); POTASSIUM 4.3 MEQ/L (3.5-5.1)
[2017-06-07 13:12] LABS: BLOOD, URINE LARGE (NEG); GLUCOSE,URINE NEG (NEG); KETONE, URINE NEG (NEG); NITRITE,URINE NEG (NEG)
[2017-06-07 13:15] LABS: METHOD OF COLLECTION CLEAN CATCH; URINE COLOR YELLOW (YELLW/STRAW)
[2017-06-07 13:16] LABS: COMMENT (UR) CULT NOT INDICATED; CULTURE IF INDICATED CULT NOT INDICATED; WBC, URINE 0-2 /hpf (0-5)
[2017-06-07 13:27] LABS: APTT (PATIENT) 56.2 SEC (24.3-30.1)
[2017-06-07] MEDS: WARFARIN SOD 5 MG TAB PO SCH (16:40)
[2017-06-07] MEDS: HEPARIN-D5W 25,000 U/250 ML 250 ML IV PRN (19:19)
[2017-06-07 19:42] LABS: APTT (PATIENT) 48.5 SEC (24.3-30.1)
[2017-06-08] VITALS (26 sets, daily range): BP systolic 60–186; BP diastolic 34–97; PULSE 62–106; RESP 13–30; TEMP 97.3–98.7; O2SAT 92–100
[2017-06-08] MEDS: RESP: ALBUTEROL 2.5 MG/IPRATROPIUM 0.5 MG NEB (SCH) INH ×2 (03:46→09:55)
[2017-06-08] MEDS: CHLORHEXIDINE GLUCONATE 2 % 1 PACK (2 CLOTHS)(taper/protocol) TOPICAL SCH (04:00)
[2017-06-08 07:15] LABS: APTT (PATIENT) 53.4 SEC (24.3-30.1)
[2017-06-08] MEDS: SODIUM CHLORIDE 0.9% FLUSH 10 ML FLUSH IV FLUSH SCH (08:58)
[2017-06-08] MEDS: predniSONE 20 MG TAB PO SCH (08:58)
[2017-06-08] MEDS ORDERED: IPRASOL INH (15:01)
[2017-06-08] MEDS ORDERED: SYMB160A INH (15:01)
[2017-06-08] MEDS ORDERED: COUM5TAB PO (15:01)
[2017-06-08] MEDS ORDERED: PRED10 PO (15:01)
[2017-06-08] MEDS ORDERED: ALBU0.08 INH (15:01)
--- NOTE | 2017-06-08 15:05 | HHI.PR ---
Subjective Remarks Patient seen this morning. Again says he feels well. As any chest pain or shortness of breath. Still feels too weak to go home. Objective Vital Signs Date Time Temp Pulse Resp B/P (MAP) Pulse Ox O2 Delivery O2 Flow Rate FiO2 06/08/17 13:00 80 06/08/17 13:00 98.7 80 25 81/54 (63) 96 06/08/17 12:00 90 06/08/17 12:00 90 23 100/55 (70) 97 06/08/17 11:00 86 22 90/55 (67) 95 06/08/17 11:00 90 06/08/17 10:00 78 13 125/81 (96) 98 06/08/17 10:00 80 06/08/17 09:57 97 Nasal Cannula 3.00 06/08/17 09:00 78 06/08/17 09:00 72 30 119/84 (96) 97 06/08/17 08:00 68 20 161/84 (109) 99 06/08/17 08:00 64 06/08/17 07:00 97.8 62 21 131/66 (87) 100 06/08/17 06:01 72 23 138/83 (101) 96 06/08/17 06:00 65 06/08/17 05:01 70 19 140/80 (100) 98 06/08/17 04:01 97.4 72 26 119/67 (84) 98 06/08/17 04:00 69 06/08/17 03:00 72 24 157/81 (106) 98 06/08/17 02:32 72 21 164/83 (110) 100 06/08/17 02:15 74 06/08/17 02:06 72 25 186/97 (126) 96 06/08/17 01:01 70 21 122/61 (81) 100 06/08/17 00:01 98.2 70 21 119/69 (86) 100 06/08/17 00:00 70 06/07/17 23:01 76 22 106/62 (77) 98 06/07/17 22:01 76 24 140/71 (94) 99 06/07/17 22:00 68 06/07/17 21:52 96 Nasal Cannula 3.00 06/07/17 20:57 84 23 156/85 (108) 98 06/07/17 20:01 98.0 90 29 167/86 (113) 96 06/07/17 20:00 70 06/07/17 19:05 94 24 136/78 (97) 97 06/07/17 19:04 94 23 74/62 (66) 97 06/07/17 18:01 102 24 85/64 (71) 93 06/07/17 18:00 94 06/07/17 17:25 116 30 134/90 (105) 86 06/07/17 17:01 90 22 69/51 (57) 94 06/07/17 16:08 96 27 72/60 (64) 93 06/07/17 16:01 98.0 98 26 64/53 (57) 91 06/07/17 16:00 98 06/07/17 15:32 93 Nasal Cannula 3.00 I/O 06/07/17 06/07/17 06/07/17 06/08/17 06/08/17 06/08/17 06:59 14:59 22:59 06:59 14:59 22:59 Intake Total 120 ml 69.9 ml 1200 ml 180 ml Output Total 1000 ml 525 ml 200 ml 750 ml Balance -880 ml -455.1 ml 1000 ml -570 ml Intake Oral 120 ml 1200 ml 120 ml IV Total 69.9 ml 60 ml Output Urine Total 1000 ml 525 ml 200 ml 750 ml # Bowel Movements 0 0 1 Result Diagram: 06/07/17 1030 06/07/17 1030 Objective Remarks GENERAL: sitting up in bed. breathing comfortably. No changes from yesterday. SKIN: Warm and dry. HEAD: Normocephalic. EYES: No scleral icterus. No injection or drainage. NECK: Supple, trachea midline. No JVD CARDIOVASCULAR: Regular rate and rhythm without murmurs, gallops, or rubs. RESPIRATORY: Breath sounds equal bilaterally. No accessory muscle use. GASTROINTESTINAL: Abdomen soft, non-tender, nondistended. Positive bowel sounds. MUSCULOSKELETAL: No cyanosis, or edema. BACK: Nontender without obvious deformity. No CVA tenderness. A/P Assessment and Plan ==06/08/17========= //Acute pulmonary embolism. Heart rate improving, now in the 70s. -INR 1.9 yesterday. Continue heparin drip for 24 consecutive hours over 2.0. Could switch to Lovenox at discharge. - Continues on heparin drip for bridging. -Taper prednisone to 10 mg, off completely on 06/09 at tolerates. //Hyperkalemia. Falsely elevated. Resolved. //Transaminitis. Mild. Hepatitis profile negative A pleasant 77-year-old male, long-term smoker presents with dyspnea and acute bilateral PE //Acute bilateral PE with acute respiratory failure. Initially on nonrebreather mask in the emergency department now weaned to 5 L nasal cannula. On exam he appears to be breathing easily. We'll continue with heparin drip, start Coumadin. Consideration to change to novel anticoagulant depending on how he progresses respiratory status nixon. Will check Doppler ultrasound of bilateral lower extremities as he does have edema to evaluate for any DVT. Suspect the PE may have been provoked by his relatively immobile status of late. However I did recommend him to [facility] which she is over[facility] for. //Cachexia and severe malnutrition. Will add ensure shakes. //Emphysema and COPD by imaging. On exam no wheezing. We'll continue with Solu -Medrol and duo nebs likely weaned to prednisone tomorrow. 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 Discharge Planning SNF. Anthony John MD Jun 08, 2017 15:05
[2017-06-08] MEDS ORDERED: ENOX40P SQ (15:55)
[2017-06-08] MEDS: WARFARIN SOD 5 MG TAB PO SCH (16:17)
[2017-06-08 16:30] LABS: INTERNATIONAL NORMALIZED RATIO 2.2 RATIO
[2017-06-08] MEDS ORDERED: ENOXAPARIN SODIUM 40 MG/0.4 ML SYRINGE SQ SCH (18:00)
[2017-06-08] MEDS ORDERED: BUDESONIDE-FORMOTEROL 160/4.5 MCG INHALER INH SCH (21:00)
[2017-06-09] MEDS ORDERED: predniSONE 10 MG TAB PO SCH (09:00)
--- NOTE | 2017-07-16 00:41 | HHI.DS ---
Discharge Summary Admission Date Jun 04, 2017 at 13:28 Discharge Date: Jun 08, 2017 Admitting Diagnosis Acute respiratory failure, bilateral pulmonary embolism, elevated troponin (1) Acute respiratory failure with hypoxemia ICD Code: J96.01 - Acute respiratory failure with hypoxia (2) Pulmonary embolism ICD Code: I26.99 - Other pulmonary embolism without acute cor pulmonale Status: Acute (3) Elevated troponin ICD Code: R74.8 - Abnormal levels of other serum enzymes Status: Acute (4) Severe protein-calorie malnutrition ICD Code: E43 - Unspecified severe protein-calorie malnutrition (5) COPD (chronic obstructive pulmonary disease) ICD Code: J44.9 - Chronic obstructive pulmonary disease, unspecified Procedures no invasive procedures Brief History - From Admission This is a pleasant 77-year-old male who presents to the ER for a 5 day history of shortness of breath and malaise. The patient denies cough, fever or wheezing. He does have a 60+ pack year history of tobacco use, but states he quit smoking heavily about 2-3 months ago and now only smokes about three quarters of a pack a day. The patient states that he has not been as mobile of late and has been laying around a lot more. In the emergency department he was found to be hypoxic with saturations in the 80s. A CTA revealed bilateral pulmonary emboli. He was started on heparin drip. He has now been weaned down to 5 L nasal cannula and states that he feels much better. The patient denies any recent weight loss and states that he has been gaining weight. He states that he had a colonoscopy "years ago" that was unremarkable but has not had one in the past 10 years. The patient denies any previous history of DVTs. Denies any recent travel or trauma. He does not go to the [facility] and does not see doctors normally. The patient does endorse a bilateral chest pain which is both aching and sharp in nature and worse when he coughs or moves. The patient was initially on nonrebreather mask in the emergency department but then weaned to 5 L nasal cannula. He has been initiated on a heparin drip. He states he feels much better and is no longer short of breath. Imaging Last Impressions CT Angiography 06/04/17 1125 Signed Impressions: Service Date/Time: Sunday, June 04, 2017 12:37 - CONCLUSION: 1. Bilateral pulmonary emboli. 2. Severe emphysema. John Paul Evans MD Chest X-Ray 06/04/17 1024 Signed Impressions: Service Date/Time: Sunday, June 04, 2017 10:48 - CONCLUSION: COPD/emphysema. Possible right lung nodule. CT chest recommended. John Paul Evans MD Lower Extremity Ultrasound 06/04/17 0000 Signed Impressions: Service Date/Time: Sunday, June 04, 2017 16:36 - CONCLUSION: Focal occlusive thrombus in the right deep femoral vein and no documented flow but normal compressibility bilateral posterior tibial veins. John Paul Evans MD Head CT 06/04/17 0000 Signed Impressions: Service Date/Time: Sunday, June 04, 2017 12:43 - CONCLUSION: Normal examination. Pb Diaz Jr., MD Hospital Course DVT on ultrasound, pulmonalis and on CT. Patient was treated for pulmonary embolism with heparin drip, will discharge on warfarin for anticoagulation. He will also Taper off steroids. Patient was also found to have transaminitis, most likely secondary to troponin elevation. Troponin elevation likely demand ischemia secondary to pulmonary embolism. Patient's symptoms improved with anticoagulation, tachycardia improved. For problem-based summering from most recent progress note, please see below. ==06/08/17========= //Acute pulmonary embolism. Heart rate improving, now in the 70s. -INR 1.9 yesterday. Continue heparin drip for 24 consecutive hours over 2.0. Could switch to Lovenox at discharge. - Continues on heparin drip for bridging. -Taper prednisone to 10 mg, off completely on 06/09 at tolerates. //Hyperkalemia. Falsely elevated. Resolved. //Transaminitis. Mild. Hepatitis profile negative A pleasant 77-year-old male, long-term smoker presents with dyspnea and acute bilateral PE //Acute bilateral PE with acute respiratory failure. Initially on nonrebreather mask in the emergency department now weaned to 5 L nasal cannula. On exam he appears to be breathing easily. We'll continue with heparin drip, start Coumadin. Consideration to change to novel anticoagulant depending on how he progresses respiratory status nixon. Will check Doppler ultrasound of bilateral lower extremities as he does have edema to evaluate for any DVT. Suspect the PE may have been provoked by his relatively immobile status of late. However I did recommend him [facility] which she is overdue for. //Cachexia and severe malnutrition. Will add ensure shakes. //Emphysema and COPD by imaging. On exam no wheezing. We'll continue with Solu -Medrol and duo nebs likely weaned to prednisone tomorrow. //FPC tobacco use, the patient has cut down and he was encouraged to quit. Pt Condition on Discharge: Good Discharge Disposition: Discharge to SNF Discharge Time: > 30 minutes Discharge Instructions DIET: Follow Instructions for: Heart Healthy Diet Activities you can perform: Regular-No Restrictions Follow up Referrals: PCP Follow-up - 2-3 Days Pulmonology - 1 Week New Medications: Budesonide-Formoterol Inh (Symbicort Inh) 160-4.5 Mcg/Act Aero 1 PUFF INH Q12HR, #1 INHALER 0 Refills Albuterol Neb (Albuterol Neb) 2.5 Mg/3 Ml Neb 2.5 MG INH Q2HR NEB PRN for SHORTNESS OF BREATH for 30 Days, NEBULE Ipratropium-Albuterol Neb (Duoneb) 0.5-2.5 Mg/3 Ml Neb 1 AMPULE INH Q6HR NEB for Breathing Treatment for 30 Days, ML Warfarin (Coumadin) 5 Mg Tab 5 MG PO DAILY@1600 for Blood Clot Prevention for 30 Days, TAB Anthony John MD Jul 16, 2017 00:41
== END 2017-06-08 18:45 | DRG 175 ==
LOC: PHED 10:17 → PHEDA 13:28 → PHICU 14:15
PROVIDERS: ADMIT Internal Medicine; ATTEND Internal Medicine
DX: I26.99 Other pulmonary embolism without acute cor pulmonale (principal); E43 Unspecified severe protein-calorie malnutrition; J96.01 Acute respiratory failure with hypoxia; I24.8 Other forms of acute ischemic heart disease; E87.5 Hyperkalemia; J44.9 Chronic obstructive pulmonary disease, unspecified; R64 Cachexia; F17.210 Nicotine dependence, cigarettes, uncomplicated; R74.0 Nonspecific elevation of levels of transaminase and lactic acid dehydrogenase [LDH]
CPT/HCPCS: 36600; 70470; 71010; 71275; 80048; 80053; 80069; 80074; 81001; 82272; 82550; 82552; 82805; 83735; 83880; 84484; 85025; 85610; 85730; 87641; 93005; 93306; 93970; 94620; 94640; 94664; 94667; 94668; 96374; J1644; J2930; J7512; J7613; Q9967

== ENCOUNTER 2017-06-26 00:16 | Inpatient (IN) | payer MEDICARE ==
[2017-06-26] VITALS (25 sets, daily range): BP systolic 84–145; BP diastolic 46–86; PULSE 68–138; RESP 18–39; TEMP 97.9–100.8; O2SAT 82–100
[~2017-06-26] VITALS: Ht 177.8 cm; Wt 61.4 kg
[~2017-06-26 00:16] MED LIST: ALBU0.08 INH; COUM5TAB PO; IPRASOL INH; PRED10 PO; SYMB160A INH
[2017-06-26] MEDS ORDERED: RESP: ALBUTEROL 2.5 MG/IPRATROPIUM 0.5 MG NEB (SCH) INH ONE (00:30)
[2017-06-26] MEDS ORDERED: SODIUM CHLORIDE 0.9% FLUSH 10 ML FLUSH IVF PRN (00:30)
[2017-06-26 01:07] LABS: AUTOMATED NEUTROPHIL # 6.4 TH/MM3 (1.8-7.7); BASOPHIL % 0.1 % (0.0-2.0); HEMATOCRIT 30.9 % (39.0-51.0); HEMO FLAGS DIFF FINAL; LYMPH % 3.4 % (9.0-44.0); LYMPHOCYTE # 0.2 TH/MM3 (1.0-4.8); MEAN CELL VOLUME 93.3 FL (80.0-100.0); MEAN CORPUSCULAR HEMOGLOBIN 31.1 PG (27.0-34.0); MEAN CORPUSCULAR HGB CONC 33.4 % (32.0-36.0); MONO % 5.1 % (0.0-8.0); NEUT % 91.4 % (16.0-70.0); PLATELET COUNT 405 TH/MM3 (150-450); RED BLOOD COUNT 3.31 MIL/MM3 (4.50-5.90); RED CELL DISTRIBUTION WIDTH 14.4 % (11.6-17.2)
[2017-06-26 01:17] LABS: APTT (PATIENT) 43.6 SEC (24.3-30.1); INTERNATIONAL NORMALIZED RATIO 2.9 RATIO; PROTHROMBIN TIME - PATIENT 34.1 SEC (9.8-11.6)
[2017-06-26 01:23] LABS: ALT (GPT) 36 U/L (12-78); ANION GAP 9 MEQ/L (5-15); AST (GOT) 25 U/L (15-37); BICARBONATE 24.8 MEQ/L (21.0-32.0); BLOOD UREA NITROGEN 21 MG/DL (7-18); CHLORIDE 103 MEQ/L (98-107); GLOMERULAR FILTRATION RATE 129 ML/MIN (>89); POTASSIUM 4.2 MEQ/L (3.5-5.1); SODIUM (NA) 137 MEQ/L (136-145)
--- NOTE | 2017-06-26 01:26 | RADRPT ---
EXAM DATE/TIME: 06/26/2017 01:00 [facility] COMPARISON: CT PULMONARY ANGIOGRAM, June 04, 2017, 12:37. INDICATIONS : Shortness of breath. MEDICAL HISTORY : None. SURGICAL HISTORY : None. ENCOUNTER: Initial ACUITY: 1 day PAIN SCORE: 0/10 LOCATION: Bilateral chest FINDINGS: Compare June 04. There is new patchy airspace disease in the left lung most characteristic of bronc hopneumonia. Underlying severe emphysema. No new consolidation on the right. Heart size normal. CONCLUSION: 1. Multifocal airspace consolidation has developed on the left since prior exam most characteristic o f bronchopneumonia or aspiration. Severe emphysema. Alfredo Kim MD on June 26, 2017 at 1:22 Board Certified Radiologist. This report was verified electronically.
[2017-06-26 01:27] LABS: ALKALINE PHOSPHATASE 166 U/L (45-117); TOTAL BILIRUBIN ADULT 0.5 MG/DL (0.2-1.0)
[2017-06-26] MEDS ORDERED: CEFEPIME INJ 2,000 MG in SODIUM CHLORIDE 0.9% INJ 100 ML IV ONE (01:30)
[2017-06-26] MEDS ORDERED: metroNIDAZOLE 500 MG INJ 100 ML IV ONE (01:30)
[2017-06-26] MEDS ORDERED: LEVOFLOXACIN 750 MG PREMIX INJ 150 ML IV ONE (01:30)
--- NOTE | 2017-06-26 02:03 | PD ---
HPI Chief Complaint: Respiratory Distress Time Seen by Provider: 00:28 Travel History International Travel<30 days: No Contact w/Intl Traveler<30days: No Traveled to known affect area: No History of Present Illness HPI Is a 76-year-old male comes in complaining of shortness of breath. He was here a few weeks ago and diagnosed bilateral pulmonary emboli. He was discharged on Coumadin, which she has been taking. He says he has had a cough for about the past week and has been getting gradually worse. He denies any pain. EMS states he had an elevated temperature when they arrived. Per EMS the nurse that was rounding found him to be acutely short of breath and have an oxygen saturation in the low 80s. He reports feeling better with the nonrebreather on. PFSH Past Medical History Cancer: No Cardiovascular Problems: Yes (elevated troponin ) Endocrine: No Genitourinary: No Immune Disorder: No Musculoskeletal: Yes (orthopedic injuries) Neurologic: No Reproductive: No Respiratory: Yes (COPD, dinora pulmonary embolism, ARF w/hypoxemia ) Social History Alcohol Use: No (FORMER) Tobacco Use: Yes Substance Use: No Allergies-Medications (Allergen,Severity, Reaction): Coded Allergies: No Known Allergies (Unverified , 06/04/17) Reported Meds & Prescriptions Reported Meds & Active Scripts Active Symbicort Inh (Budesonide/Formoterol Fumarate) 160-4.5 Mcg/Act Aero 1 Puff INH Q12HR Prednisone 10 Mg Tab 10 Mg PO DAILY 2 Days Coumadin (Warfarin) 5 Mg Tab 5 Mg PO DAILY@1600 30 Days Albuterol Neb (Albuterol Sulfate) 2.5 Mg/3 Ml Neb 2.5 Mg INH Q2HR NEB PRN 30 Days Duoneb (Ipratropium-Albuterol Neb) 0.5-2.5 Mg/3 Ml Neb 1 Ampule INH Q6HR NEB 30 Days Review of Systems Except as stated in HPI: all other systems reviewed are Neg Eyes: No: Blurred Vision HENT: No: Headaches, Lightheadedness Cardiovascular: No: Chest Pain or Discomfort Respiratory: Positive: Cough, Shortness of Breath Gastrointestinal: No: Nausea, Abdominal Pain Genitourinary: No: Dysuria Musculoskeletal: No: Pain Skin: No Rash, No Change in Pigmentation Neurologic: No: Weakness, Dizziness Physical Exam Narrative GENERAL: Awake and alert, in mild respiratory distress. SKIN: Focused skin assessment warm/dry. HEAD: Atraumatic. Normocephalic. EYES: Pupils equal and round. No scleral icterus. ENT: Mucous membranes pink and moist. NECK: Trachea midline. No JVD. CARDIOVASCULAR: Regular rate and rhythm. No murmur appreciated. RESPIRATORY: Tachypnea. Decreased breath sounds bilaterally. Crackles on the left. GASTROINTESTINAL: Abdomen soft, non-tender, nondistended. MUSCULOSKELETAL: No obvious deformities. No clubbing. No cyanosis. No edema. NEUROLOGICAL: Awake and alert. No obvious cranial nerve deficits. Motor grossly within normal limits. Normal speech. PSYCHIATRIC: Appropriate mood and affect; insight and judgment normal. Data Data Last Documented VS Vital Signs Date Time Temp Pulse Resp B/P (MAP) Pulse Ox O2 Delivery O2 Flow Rate FiO2 06/26/17 00:40 92 Venturi Mask 50 06/26/17 00:39 118 26 106/67 (80) 06/26/17 00:21 100.8 Orders Orders Complete Blood Count With Diff (06/26/17 00:30) Comprehensive Metabolic Panel (06/26/17 00:30) Act Partial Throm Time (Ptt) (06/26/17 00:30) Prothrombin Time / Inr (Pt) (06/26/17 00:30) Troponin I (06/26/17 00:30) Iv Access Insert/Monitor (06/26/17 00:30) Electrocardiogram (06/26/17 00:30) Ecg Monitoring (06/26/17 00:30) Oximetry (06/26/17 00:30) Oxygen Administration (06/26/17 00:30) Chest, Single Ap (06/26/17 00:30) Sodium Chloride 0.9% Flush (Ns Flush) (06/26/17 00:30) Albuterol-Ipratropium Neb (Duoneb Neb) (06/26/17 00:30) Cefepime Inj (Maxipime Inj) (06/26/17 01:30) Levofloxacin 750 Mg Premix Inj (Levaquin (06/26/17 01:30) Metronidazole 500 Mg Inj (Flagyl 500 Mg (06/26/17 01:30) Labs Laboratory Tests Test 06/26/17 00:35 White Blood Count 7.0 TH/MM3 Red Blood Count 3.31 MIL/MM3 Hemoglobin 10.3 GM/DL Hematocrit 30.9 % Mean Corpuscular Volume 93.3 FL Mean Corpuscular Hemoglobin 31.1 PG Mean Corpuscular Hemoglobin Concent 33.4 % Red Cell Distribution Width 14.4 % Platelet Count 405 TH/MM3 Mean Platelet Volume 7.6 FL Neutrophils (%) (Auto) 91.4 % Lymphocytes (%) (Auto) 3.4 % Monocytes (%) (Auto) 5.1 % Eosinophils (%) (Auto) 0.0 % Basophils (%) (Auto) 0.1 % Neutrophils # (Auto) 6.4 TH/MM3 Lymphocytes # (Auto) 0.2 TH/MM3 Monocytes # (Auto) 0.4 TH/MM3 Eosinophils # (Auto) 0.0 TH/MM3 Basophils # (Auto) 0.0 TH/MM3 CBC Comment DIFF FINAL Differential Comment Prothrombin Time 34.1 SEC Prothromb Time International Ratio 2.9 RATIO Activated Partial Thromboplast Time 43.6 SEC Blood Urea Nitrogen 21 MG/DL Creatinine 0.61 MG/DL Random Glucose 126 MG/DL Total Protein 6.3 GM/DL Albumin 2.0 GM/DL Calcium Level 8.2 MG/DL Alkaline Phosphatase 166 U/L Aspartate Amino Transf (AST/SGOT) 25 U/L Alanine Aminotransferase (ALT/SGPT) 36 U/L Total Bilirubin 0.5 MG/DL Sodium Level 137 MEQ/L Potassium Level 4.2 MEQ/L Chloride Level 103 MEQ/L Carbon Dioxide Level 24.8 MEQ/L Anion Gap 9 MEQ/L Estimat Glomerular Filtration Rate 129 ML/MIN Troponin I 0.15 NG/ML [facility] Medical Decision Making Medical Screen Exam Complete: Yes Emergency Medical Condition: Yes Medical Record Reviewed: Yes Interpretation(s) ECG shows sinus tachycardia 1:15, no ST elevation or depression, right bundle branch block Differential Diagnosis Pneumonia versus COPD exacerbation versus anemia versus sepsis Narrative Course Patient is a 76-year-old male comes in complaining of shortness of breath. Exam shows tachypnea with decreased breath sounds and crackles on the left. IV established, labs sent. Labs show no elevation in the white blood cell count, however there is a predominant left shift. Chest x-ray shows pneumonia, possible aspiration on the left. Last 24 hours Impressions Chest X-Ray 06/26/17 0030 Signed Impressions: Service Date/Time: Monday, June 26, 2017 01:00 - CONCLUSION: 1. Multifocal airspace consolidation has developed on the left since prior exam most characteristic of bronchopneumonia or aspiration. Severe emphysema. Alfredo Kim MD INR is 2.9, therapeutic on Coumadin. Patient given 1 DuoNeb. Started on cefepime, Levaquin, Flagyl. He'll be admitted for further management. Diagnosis Primary Impression: Pneumonia Qualified Codes: J18.9 - Pneumonia, unspecified organism Additional Impression: Hypoxia Admitting Information Admitting Physician Requests: Admit Condition: Stable Anneliese Fishman MD Jun 26, 2017 02:03
[2017-06-26] MEDS ORDERED: SENNOSIDES 8.6 MG TAB PO PRN (02:30)
[2017-06-26] MEDS ORDERED: LACTULOSE SYRUP 20 GM/30 ML CUP PO PRN (02:30)
[2017-06-26] MEDS ORDERED: MAGNESIUM HYDROXIDE SUSP 30 ML CUP PO PRN (02:30)
[2017-06-26] MEDS ORDERED: NALOXONE HCL 0.4 MG/ML AMP IV PRN (02:30)
[2017-06-26] MEDS ORDERED: BISACODYL 10 MG SUPP RECTAL PRN (02:30)
[2017-06-26] MEDS ORDERED: SODIUM CHLORIDE 0.9% FLUSH 10 ML FLUSH IV FLUSH PRN (02:30)
[2017-06-26] MEDS ORDERED: ASPI81CH CHEW (03:00)
[2017-06-26] MEDS ORDERED: MAGN500T2 PO (03:00)
--- NOTE | 2017-06-26 04:55 | HHI.HP ---
[facility] No Primary Care Physician Admission Diagnosis Pneumonia, hypoxia Diagnoses: Chief Complaint: dysnea Travel History International Travel<30 Days: No Contact w/Intl Traveler <30 Da: No Traveled to Known Affected Are: No History of Present Illness Written by ABE Johnston acting as scribe for [Delgado] on 06/26/17 at 04: 49. 76 y/o male with a history of COPD presented to the ED with complaints of shortness of breath. He states he was at home and had increased cough with little sputum production. He is unsure if he had a fever at home. He denies any chest pain, nausea, vomiting, dizziness, or abdominal pain. He was just recently discharged on on Coumadin for a PE. Patient is currently on Bipap to assist with breathing and will be transferred to the ICU for closer monitoring. Review of Systems Except as stated in HPI: all other systems reviewed are Neg Past Family Social History Past Medical History COPD recent pulmonary embolism Past Surgical History Patient denies any surgical history Reported Medications Reported Meds & Active Scripts Active Symbicort Inh (Budesonide/Formoterol Fumarate) 160-4.5 Mcg/Act Aero 1 Puff INH Q12HR Coumadin (Warfarin) 5 Mg Tab 5 Mg PO DAILY@1600 30 Days Albuterol Neb (Albuterol Sulfate) 2.5 Mg/3 Ml Neb 2.5 Mg INH Q2HR NEB PRN 30 Days Duoneb (Ipratropium-Albuterol Neb) 0.5-2.5 Mg/3 Ml Neb 1 Ampule INH Q6HR NEB 30 Days Reported Magnesium Oxide 500 Mg Tab 500 Mg PO BID Aspirin 81 Mg Chew 81 Mg CHEW DAILY Allergies: Coded Allergies: No Known Allergies (Unverified , 06/04/17) Active Ordered Medications Current Medications Medications (Trade) Dose Ordered Sig/Mata Route Start Time Stop Time Status Last Admin (NS Flush) 2 ml UNSCH PRN IVF 06/26/17 00:30 (NS Flush) 2 ml UNSCH PRN IV FLUSH 06/26/17 02:30 (NS Flush) 2 ml BID IV FLUSH 06/26/17 09:00 (Narcan Inj) 0.4 mg UNSCH PRN IV 06/26/17 02:30 (Celina-Colace) 1 tab BID PO 06/26/17 09:00 (Milk Of Magnesia Liq) 30 ml Q12H PRN PO 06/26/17 02:30 (Senokot) 17.2 mg Q12H PRN PO 06/26/17 02:30 (Dulcolax Supp) 10 mg DAILY PRN RECTAL 06/26/17 02:30 (Lactulose Liq) 30 ml DAILY PRN PO 06/26/17 02:30 Family History Patient denies any family history. Social History Tobacco use: Heavy smoker prior, quit a few years ago Alcohol use: Denies Physical Exam Vital Signs Vital Signs Date Time Temp Pulse Resp B/P (MAP) Pulse Ox O2 Delivery O2 Flow Rate FiO2 06/26/17 04:02 98.1 118 20 145/82 (103) 92 06/26/17 00:40 92 Venturi Mask 50 06/26/17 00:39 118 26 106/67 (80) 98 Non-Rebreather 100 06/26/17 00:30 99 Non-Rebreather 100 06/26/17 00:30 115 26 116/75 (89) 99 Non-Rebreather 100 06/26/17 00:30 Non-Rebreather 06/26/17 00:21 100.8 127 28 117/79 (92) 82 Physical Exam GENERAL: This is a well-nourished, well-developed patient, on BiPap, able to complete sentences and answers questions though looks to be in discomfort SKIN: No rashes, ecchymoses or lesions. Cool and dry. HEAD: Atraumatic. Normocephalic. EYES: No icterus or pallor ENT: Nose without bleeding, purulent drainage or septal hematoma. NECK: Trachea midline. No JVD. CARDIOVASCULAR: Regular rate and rhythm without murmurs, gallops, or rubs. RESPIRATORY: Bipap in place 12/5 40%; limited lung exam due to bipap sounds GASTROINTESTINAL: Abdomen soft, non-tender, nondistended. MUSCULOSKELETAL: Extremities without clubbing, cyanosis, or edema. No joint tenderness, effusion, or edema noted. No calf tenderness. NEUROLOGICAL: Awake and alert. Motor and sensory grossly within normal limits. Normal speech. Laboratory Laboratory Tests Test 06/26/17 00:35 White Blood Count 7.0 Red Blood Count 3.31 Hemoglobin 10.3 Hematocrit 30.9 Mean Corpuscular Volume 93.3 Mean Corpuscular Hemoglobin 31.1 Mean Corpuscular Hemoglobin Concent 33.4 Red Cell Distribution Width 14.4 Platelet Count 405 Mean Platelet Volume 7.6 Neutrophils (%) (Auto) 91.4 Lymphocytes (%) (Auto) 3.4 Monocytes (%) (Auto) 5.1 Eosinophils (%) (Auto) 0.0 Basophils (%) (Auto) 0.1 Neutrophils # (Auto) 6.4 Lymphocytes # (Auto) 0.2 Monocytes # (Auto) 0.4 Eosinophils # (Auto) 0.0 Basophils # (Auto) 0.0 CBC Comment DIFF FINAL Differential Comment Prothrombin Time 34.1 Prothromb Time International Ratio 2.9 Activated Partial Thromboplast Time 43.6 Blood Urea Nitrogen 21 Creatinine 0.61 Random Glucose 126 Total Protein 6.3 Albumin 2.0 Calcium Level 8.2 Alkaline Phosphatase 166 Aspartate Amino Transf (AST/SGOT) 25 Alanine Aminotransferase (ALT/SGPT) 36 Total Bilirubin 0.5 Sodium Level 137 Potassium Level 4.2 Chloride Level 103 Carbon Dioxide Level 24.8 Anion Gap 9 Estimat Glomerular Filtration Rate 129 Troponin I 0.15 Result Diagram: 06/26/173406/26/1734 Imaging Last Impressions Chest X-Ray 06/26/1729 Signed Impressions: Service Date/Time: Monday, June 26, 2017 01:00 - CONCLUSION: 1. Multifocal airspace consolidation has developed on the left since prior exam most characteristic of bronchopneumonia or aspiration. Severe emphysema. Alfredo Kim MD Caprini VTE Risk Assessment Caprini VTE Risk Assessment: Mod/High Risk (score >= 2) Caprini Risk Assessment Model Point Value = 1 Point Value = 2 Point Value = 3 Point Value = 5 Age 41-60 Minor surgery BMI > 25 kg/m2 Swollen legs Varicose veins or History of unexplained or recurrent spontaneous Oral contraceptives or hormone replacement Sepsis (< 1 month) Serious lung disease, including pneumonia (< 1 month) Abnormal pulmonary function Acute myocardial infarction Congestive heart failure (< 1 month) History of inflammatory bowel disease Medical patient at bed rest Age 61-74 Arthroscopic surgery Major open surgery (> 45 min) Laparoscopic surgery (> 45 min) Malignancy Confined to bed (> 72 hours) Immobilizing plaster cast Central venous access Age >= 75 History of VTE Family history of VTE Factor V Leiden Prothrombin [id number] Lupus anticoagulant Anticardiolipin antibodies Elevated serum homocysteine Heparin-induced thrombocytopenia Other congenital or acquired thrombophilia Stroke (< 1 month) Elective arthroplasty Hip, pelvis, or leg fracture Acute spinal cord injury (< 1 month) Prophylaxis Regimen Total Risk Factor Score Risk Level Prophylaxis Regimen 0-1 Low Early ambulation 2 Moderate Order ONE of the following: *Sequential Compression Device (SCD) *Heparin 5000 units SQ BID 3-4 Higher Order ONE of the following medications: *Heparin 5000 units SQ TID *Enoxaparin/Lovenox 40 mg SQ daily (WT < 150 kg, CrCl > 30 mL/min) *Enoxaparin/Lovenox 30 mg SQ daily (WT < 150 kg, CrCl > 10-29 mL/min) *Enoxaparin/Lovenox 30 mg SQ BID (WT < 150 kg, CrCl > 30 mL/min) AND/OR *Sequential Compression Device (SCD) 5 or more Highest Order ONE of the following medications: *Heparin 5000 units SQ TID (Preferred with Epidurals) *Enoxaparin/Lovenox 40 mg SQ daily (WT < 150 kg, CrCl > 30 mL/min) *Enoxaparin/Lovenox 30 mg SQ daily (WT < 150 kg, CrCl > 10-29 mL/min) *Enoxaparin/Lovenox 30 mg SQ BID (WT < 150 kg, CrCl > 30 mL/min) AND *Sequential Compression Device (SCD) Assessment and Plan Problem List: (1) Acute respiratory failure with hypoxemia ICD Code: J96.01 - Acute respiratory failure with hypoxia (2) Pneumonia ICD Code: J18.9 - Pneumonia, unspecified organism Status: Acute Assessment and Plan 76 y/o male with a history of COPD presented to the ED with complaints of shortness of breath. Acute respiratory failure with hypoxemia, hx of COPD not on any home o2 Chest x ray reviewed and shows new multifocal airspace consolidation, since prior exam. Emphysema. -Place patient on bipap -Transfer to ICU for closer monitoring Pneumonia, tmax 100.8, no leukocytosis -IV antibiotics: Cefepime Q8h -Trend WBC -Atrovent nebs scheduled and prn -Solumedrol 125mg x 1 now, then 40mg Q6h DVT prophylaxis: Coumadin This note was transcribed by inesibavni [Annamarie Francis]. I, Dr. Misael Natarajan personally performed the history, physical exam, and medical decision making; and confirmed the accuracy of the information in the transcribed note. Authenticated by Dr. Misael Natarajan on 06/26/17 at 04:49. Discussed Condition With Patient, ER MD, nursing staff Physician Certification 2 Midnight Certification Type: Admission for Inpatient Services Order for Inpatient Services The services are ordered in accordance with Medicare regulations or non- Medicare payer requirements, as applicable. In the case of services not specified as inpatient-only, they are appropriately provided as inpatient services in accordance with the 2-midnight benchmark. Estimated LOS (days): 3 days is the estimated time the patient will need to remain in the hospital, assuming treatment plan goals are met and no additional complications. Post-Hospital Plan: Home Problem Qualifiers (1) Pneumonia: Qualified Codes: J18.9 - Pneumonia, unspecified organism Annamarie Francis Jun 26, 2017 04:55 Misael Natarajan MD Jun 26, 2017 12:21
[2017-06-26] MEDS ORDERED: RESP: IPRATROPIUM 0.5 MG/2.5 ML NEB NEB PRN (05:15)
[2017-06-26] MEDS ORDERED: methylPREDNISolone SOD SUCC 125 MG/2 ML VIAL IV PUSH ONE (05:15)
[2017-06-26] MEDS: CEFEPIME INJ 1,000 MG in SODIUM CHLORIDE 0.9% INJ 100 ML IV SCH ×3 (05:29→22:32)
[2017-06-26] MEDS ORDERED: LORazepam 2 MG/ML VIAL IV PUSH ONE (05:30)
[2017-06-26] MEDS: RESP: ALBUTEROL 2.5 MG/IPRATROPIUM 0.5 MG NEB (SCH) NEB ×4 (07:44→19:48)
[2017-06-26] MEDS ORDERED: SODIUM CHLORID 0.9% 500 ML INJ 500 ML IV ONE (07:45)
[2017-06-26] MEDS ORDERED: DEXMEDETOMIDINE HCL 200 MCG/2 ML VIAL IV PUSH ONE (07:45)
[2017-06-26] MEDS ORDERED: DEXMEDETOMIDINE INJ 200 MCG in SODIUM CHLORIDE 0.9% INJ 50 ML IV PRN (07:45)
[2017-06-26] MEDS: SODIUM CHLOR 0.9% 1000 ML INJ 1,000 ML IV SCH ×2 (07:45→18:24)
[2017-06-26 07:55] LABS: BLOOD GAS BASE EXCESS -1.5 mmol/L (-2-2); BLOOD GAS CARBOXYHEMOGLOBIN 0.9 % (0-4); BLOOD GAS HCO3 23 mmol/L (22-26); BLOOD GAS METHEMOGLOBIN 0.7 % (0-2); BLOOD GAS O2 HGB SATURATION 95 % (90-100); BLOOD GAS OXYGEN CONTENT 15.2 Vol % (12.0-20.0); BLOOD GAS PCO2 42 mmHg (38-42); BLOOD GAS PO2 95 mmHg (61-120); BLOOD GAS TOTAL HGB 11.3 G/DL (12.0-16.0); TEMP CORR TO 98.6
[2017-06-26 07:56] LABS: CRITICAL VALUE NO; DRAW SITE RT RADIAL; FIO2 50 %; NUMBER OF ARTERIAL PUNCTURES 1; OXYGEN DEVICE BIPAP; STAT NO; ULNAR PULSE PRESENT
--- NOTE | 2017-06-26 08:23 | PD.CONS ---
HPI Service Critical Care Medicine Consult Requested By Reason for Consult Acute resp failure Primary Care Physician No Primary Care Physician History of Present Illness History of Present Illness HPI 76-year-old male with a medical history significant for emphysema and recent diagnosis of PE in May 2017 for which she was admitted at [facility] and was subsequently discharged to a alf facility on Coumadin which she has been taking. Patient presented with a cough going on for the last week with progressive shortness of breath. Per documentation EMS stated he had an elevated temperature on their arrival to the nursing facility and the nurses that were rounding found him to be acutely short of breath with an oxygen saturation in the low 80s. He was placed on a nonrebreather facemask and brought to the hospital at [place]. He was evaluated in the ER where his chest x-ray revealed new infiltrates involving left lung and he was started on empiric antibiotics/ steroids and admitted by the hospitalist service to the floor however his respiratory status declined and he was initiated on BiPAP and transferred to the ICU. She did have a elevated troponin of 0.15 noted in the ER and was given aspirin. Critical care was consulted following patient's transfer to the ICU due to worsening respiratory failure requiring BiPAP and possible need for intubation. I evaluated the patient immediately on being notified by nursing staff and adjusted BiPAP, ordered a stat ABG and bronchodilator treatments. Patient was also looking anxious on BiPAP using accessory muscles of respiration hence a Precedex drip was ordered. History was obtained by reviewing records and discussion with patient and nursing staff. PFSH Past Medical History Cancer: No Cardiovascular Problems: Yes (elevated troponin ) Endocrine: No Genitourinary: No Immune Disorder: No Musculoskeletal: Yes (orthopedic injuries) Neurologic: No Reproductive: No Respiratory: Yes (COPD, dinora pulmonary embolism, ARF w/hypoxemia ) Social History Alcohol Use: No (FORMER) Tobacco Use: Yes Substance Use: No Allergies-Medications (Allergen,Severity, Reaction): Coded Allergies: No Known Allergies (Unverified , 06/04/17) Reported Meds & Prescriptions Reported Meds & Active Scripts Active Symbicort Inh (Budesonide/Formoterol Fumarate) 160-4.5 Mcg/Act Aero 1 Puff INH Q12HR Prednisone 10 Mg Tab 10 Mg PO DAILY 2 Days Coumadin (Warfarin) 5 Mg Tab 5 Mg PO DAILY@1600 30 Days Albuterol Neb (Albuterol Sulfate) 2.5 Mg/3 Ml Neb 2.5 Mg INH Q2HR NEB PRN 30 Days Duoneb (Ipratropium-Albuterol Neb) 0.5-2.5 Mg/3 Ml Neb 1 Ampule INH Q6HR NEB 30 Days Review of Systems Except as stated in HPI: all other systems reviewed are Neg Eyes: No: Blurred Vision HENT: No: Headaches, Lightheadedness Cardiovascular: No: Chest Pain or Discomfort Respiratory: Positive: Cough, Shortness of Breath Gastrointestinal: No: Nausea, Abdominal Pain Genitourinary: No: Dysuria Musculoskeletal: No: Pain Skin: No Rash, No Change in Pigmentation Neurologic: No: Weakness, Dizziness Physical Exam Vital Signs Vital Signs Date Time Temp Pulse Resp B/P (MAP) Pulse Ox O2 Delivery O2 Flow Rate FiO2 06/26/17 06:45 94 50 06/26/17 04:50 91 40 06/26/17 04:02 98.1 118 20 145/82 (103) 92 06/26/17 03:48 97.9 128 24 113/86 (95) 95 06/26/17 03:30 98.1 118 20 145/82 (103) 92 06/26/17 00:40 92 Venturi Mask 50 06/26/17 00:39 118 26 106/67 (80) 98 Non-Rebreather 100 06/26/17 00:30 99 Non-Rebreather 100 06/26/17 00:30 115 26 116/75 (89) 99 Non-Rebreather 100 06/26/17 00:30 Non-Rebreather 06/26/17 00:21 100.8 127 28 117/79 (92) 82 Physical Exam Physical Exam Narrative GENERAL: Awake and alert, in significant respiratory distress requiring BiPAP with full facemask SKIN: Focused skin assessment warm/dry. HEAD: Atraumatic. Normocephalic. EYES: Pupils equal and round. No scleral icterus. ENT: Mucous membranes pink and moist. NECK: Trachea midline. No JVD. CARDIOVASCULAR: Regular rate and rhythm. No murmur appreciated. RESPIRATORY: On BiPAP with full facemask, using accessory muscles of respiration , tachypneic with respiratory rate in the 30s .Air entry decreased bilaterally, scattered rhonchi over left lung field, no wheezing. GASTROINTESTINAL: Abdomen soft, non-tender, nondistended. Bowel sounds present MUSCULOSKELETAL: No obvious deformities. No clubbing. No cyanosis. No edema. NEUROLOGICAL: Awake and alert. No obvious cranial nerve deficits. Motor grossly within normal limits. Normal speech. PSYCHIATRIC: Appropriate mood and affect; insight and judgment normal. Laboratory Laboratory Tests Test 06/26/17 00:35 06/26/17 06:37 06/26/17 07:15 White Blood Count 7.0 TH/MM3 Red Blood Count 3.31 MIL/MM3 Hemoglobin 10.3 GM/DL Hematocrit 30.9 % Mean Corpuscular Volume 93.3 FL Mean Corpuscular Hemoglobin 31.1 PG Mean Corpuscular Hemoglobin Concent 33.4 % Red Cell Distribution Width 14.4 % Platelet Count 405 TH/MM3 Mean Platelet Volume 7.6 FL Neutrophils (%) (Auto) 91.4 % Lymphocytes (%) (Auto) 3.4 % Monocytes (%) (Auto) 5.1 % Eosinophils (%) (Auto) 0.0 % Basophils (%) (Auto) 0.1 % Neutrophils # (Auto) 6.4 TH/MM3 Lymphocytes # (Auto) 0.2 TH/MM3 Monocytes # (Auto) 0.4 TH/MM3 Eosinophils # (Auto) 0.0 TH/MM3 Basophils # (Auto) 0.0 TH/MM3 CBC Comment DIFF FINAL Differential Comment Prothrombin Time 34.1 SEC Prothromb Time International Ratio 2.9 RATIO Activated Partial Thromboplast Time 43.6 SEC Blood Urea Nitrogen 21 MG/DL Creatinine 0.61 MG/DL Random Glucose 126 MG/DL Total Protein 6.3 GM/DL Albumin 2.0 GM/DL Calcium Level 8.2 MG/DL Alkaline Phosphatase 166 U/L Aspartate Amino Transf (AST/SGOT) 25 U/L Alanine Aminotransferase (ALT/SGPT) 36 U/L Total Bilirubin 0.5 MG/DL Sodium Level 137 MEQ/L Potassium Level 4.2 MEQ/L Chloride Level 103 MEQ/L Carbon Dioxide Level 24.8 MEQ/L Anion Gap 9 MEQ/L Estimat Glomerular Filtration Rate 129 ML/MIN Troponin I 0.15 NG/ML Blood Gas Puncture Site RT RADIAL Blood Gas Patient Temperature 98.6 Blood Gas HCO3 23 mmol/L Blood Gas Base Excess -1.5 mmol/L Blood Gas Oxygen Saturation 95 % Arterial Blood pH 7.36 Arterial Blood Partial Pressure CO2 42 mmHg Arterial Blood Partial Pressure O2 95 mmHg Arterial Blood Oxygen Content 15.2 Vol % Arterial Blood Carboxyhemoglobin 0.9 % Arterial Blood Methemoglobin 0.7 % Blood Gas Hemoglobin 11.3 G/DL Oxygen Delivery Device BIPAP Blood Gas Ventilator Setting SEE COMMENT Blood Gas Inspired Oxygen 50 % Result Diagram: 06/26/17 0035 06/26/1734 Imaging Last Impressions Chest X-Ray 06/26/1729 Signed Impressions: Service Date/Time: Monday, June 26, 2017 01:00 - CONCLUSION: 1. Multifocal airspace consolidation has developed on the left since prior exam most characteristic of bronchopneumonia or aspiration. Severe emphysema. Alfredo Kim MD Septic Shock Reassessment Heart: Regular rate and rhythm Lungs: Diminished Skin: Warm Peripheral Pulses: Bounding Right Radial Capillary Refill: Brisk Assessment and Plan Assessment and Plan 76-year-old male with: Acute respiratory failure requiring BiPAP COPD exacerbation Severe Sepsis Pneumonia Recent pulmonary embolism Elevated troponin with non-ST elevation MD Plan: Neuro: Follow neuro status. We will initiate Precedex to control anxiety while on BiPAP. Cardiovascular: IV hydration, check serial cardiac enzymes. Started on aspirin for elevated troponin. Check BNP. We'll consult cardiology. 2-D echo done on previous admission was a poor study due to his severe emphysema. Will defer to cardiology regarding cardiac imaging. Multiple PVCs noted on telemetry. EKG done in ER with with old right bundle branch block Pulmonary: Continue BiPAP with full facemask. Currently on +15/+5 FiO2 50%. DuoNeb's every 4 hourly and every 2 hourly when necessary. IV Solu-Medrol. If respiratory status declines despite BiPAP may require endotracheal intubation and mechanical ventilation. GI/liver: Keep patient nothing by mouth till improvement in respiratory status. May require Dobbhoff placement if unable to tolerate by mouth. Renal/: IV hydration, strict intake output, monitor and replete electro lites , follow BUN/creatinine. Zepeda catheterization for accurate intake output in this critically ill patient with severe sepsis/pneumonia. ID: Blood cultures, UA and urine C/S if indicated. Check urine for strep pneumo and Legionella antigen. Nasal aspirate for influenza A and B. Empiric antibiotic coverage with IV cefepime. Added is azithromycin for atypical coverage. Endocrine: SSI for glycemic control. Heme: On Coumadin for full anticoagulation with therapeutic INR which will be continued. Prophylaxis: PPI. Continue Coumadin for full anticoagulation for recent PE. Discussed current clinical status with patient at bedside. He voiced understanding regarding his condition. I also asked him to clarify if he would agree with intubation and mechanical ventilation if his respiratory status was declining or if he would want CPR in case of a cardiac arrest and he wish to continue aggressive care at this time. His prognosis appears guarded in view of advanced emphysema with recent PE and now sepsis/pneumonia. Condition critical . Patient at high risk for deterioration and needing intubation.. Time spent on critical care excluding procedures 60 minutes Anastacio Jiménez MD Jun 26, 2017 08:23
[2017-06-26 09:15] LABS: BACTERIA, URINE RARE /hpf; BLOOD, URINE LARGE (NEG); COMMENT (UR) CATH-CULTURE IND; CULTURE IF INDICATED CATH CULTURE IND; GLUCOSE,URINE NEG (NEG); GRANULAR CAST, URINE 3 /lpf; HYALINE CAST, URINE 10 /lpf (RARE); KETONE, URINE TRACE mg/dL (NEG); MUCUS URINE FEW /lpf (OCC); NITRITE,URINE NEG (NEG); URINE COLOR YELLOW (YELLW/STRAW)
[2017-06-26] MEDS: ASPIRIN 81 MG CHEW TAB CHEW SCH (09:26)
[2017-06-26] MEDS: AZITHROMYCIN INJ 500 MG in SODIUM CHLOR 0.9% 250 ML INJ 250 ML IV SCH (09:26)
[2017-06-26] MEDS: NOREPINEPHRINE INJ 4 MG in SODIUM CHLOR 0.9% 250 ML INJ 246 ML IV PRN (09:40)
[2017-06-26] MEDS ORDERED: NOREPINEPHRINE-DEXTROSE DRIP 250 ML IV ONE (09:41)
[2017-06-26] MEDS ORDERED: SODIUM CHLOR 0.9% 1000 ML INJ 1,000 ML IV ONE (09:45)
[2017-06-26] MEDS ORDERED: TERBUTALINE INJ 1 MG/ML AMP SQ PRN ×2 (09:45→20:00)
[2017-06-26] MEDS ORDERED: RESP: IPRATROPIUM 0.5 MG/2.5 ML NEB NEB SCH (10:00)
[2017-06-26] MEDS: methylPREDNISolone SOD SUCC 40 MG/1 ML VIAL IV PUSH SCH ×2 (11:30→18:24)
--- NOTE | 2017-06-26 12:09 | RADRPT ---
EXAM DATE/TIME: 06/26/2017 11:20 [place] COMPARISON: CHEST SINGLE AP, June 26, 2017, 1:00. INDICATIONS : Central line placement. MEDICAL HISTORY : Dyspnea, pulmonary embolism SURGICAL HISTORY : None. ENCOUNTER: Initial ACUITY: 1 day PAIN SCORE: Non-responsive. LOCATION: Bilateral chest FINDINGS: A right internal jugular central line has its tip in the superior vena cava. There is no pneumothora x. Extensive patchy infiltrates are again noted within the left lung and are stable. Minimal patchi ness is noted within the right lung base. Underlying emphysematous changes are noted bilaterally and are stable. Degenerative changes and scoliosis of the thoracic spine are stable. CONCLUSION: 1. Stable extensive patchy infiltrates within the left lung. 2. Minimal patchiness with in the right lung base. 3. Underlying emphysematous changes bilaterally. 4. No pneumothorax status-post placement of right internal jugular central line which has its tip in the superior vena cava. Marlon Roberts MD on June 26, 2017 at 11:54 Board Certified Radiologist. This report was verified electronically.
--- NOTE | 2017-06-26 12:24 | PD.PROCEDR ---
Central Line Procedure REASON FOR PROCEDURE Central venous access PROCEDURE PERFORMED Central line placement: Right internal jugular vein CONSENT Informed consent for procedure was not obtained. ANESTHESIA Local injection of 1% Lidocaine DESCRIPTION OF THE PROCEDURE The patient was placed in supine, mild Trendelenburg position. The area was exposed and cleansed with ChloraPrep, times two. Large sterile drape was used to cover the patient, with the site exposed, under sterile conditions including cap, face mask, sterile gown, and sterile gloves. On single attempt using ultrasound guidance, the introducer needle was inserted with negative pressure in syringe and venous flash was obtained. The guide wire was then advanced without any restriction and the needle was removed. The dilator was used without any complications. Using Seldinger technique a 20 cm antimicrobial coated triple lumen catheter was advanced over the guide wire to a depth of 16 centimeters. The guide wire was removed. All ports were aspirated with dark venous blood return and flushed easily with sterile saline. All ports were capped. Antibiotic disc was placed around central line at puncture site. The central line was secured to the skin with two interrupted 2.0 silk sutures. The area was bandaged with sterile see-through central line bandage. RADIOLOGICAL DATA Ultrasound guidance was used to locate the right internal jugular vein. COMPLICATIONS: No apparent complications ESTIMATED BLOOD LOSS: 2 cc. Anastacio Jiménez MD Jun 26, 2017 12:24
[2017-06-26] MEDS: VASOPRESSIN INJ 40 UNITS in DEXTROSE 5% IN WATER 100ML INJ 98 ML IV SCH ×2 (12:59)
--- NOTE | 2017-06-26 15:26 | ECHRPT ---
Indication: Cardiomyopathy CONCLUSIONS Moderate size region of apical akinesis. Ejection fraction is difficult to estimate, possibly 40%. Normal left ventricular size and wall thickness. Normal right ventricular size and systolic function. A prominent moderator band is seen. Moderate mitral annular calcification. Mild mitral regurgitation. Slightly sclerotic aortic leaflets. No regurgitation. There is trace tricuspid valve regurgitation. The estimated pulmonary arterial pressure is 33 mmHg. BP: 104 / 83 HR: 138 Rhythm: Sinus MEASUREMENTS (Male / Female) Normal Values Technical Quality:Good 2D ECHO LV Diastolic Diameter PLAX 4.3 cm 4.2 - 5.9 / 3.9 - 5.3 cm LV Systolic Diameter PLAX 3.6 cm IVS Diastolic Thickness 1.1 cm 0.6 - 1.0 / 0.6 - 0.9 cm LVPW Diastolic Thickness 1.1 cm 0.6 - 1.0 / 0.6 - 0.9 cm LV Relative Wall Thickness 0.5 RV Internal Dim ED PLAX 2.8 cm LVOT Diameter 2.0 cm LA Systolic Diameter LX 3.6 cm 3.0 - 4.0 / 2.7 - 3.8 cm LV Ejection Fraction MOD 4C 36.7 % LV Cardiac Index MOD 4C 2831.0 cm/minm LV Ejection Fraction 4C AL 37.6 % LV Cardiac Index 4C AL 3030.7 cm/minm M-MODE LV Diastolic Diameter MM 5.1 cm 4.2 - 5.9 / 3.9 - 5.3 cm LV Systolic Diameter MM 4.2 cm LV Ejection Fraction MM Teich 37.5 % LV Cardiac Index MM Teich 4014.9 cm/minm IVS Diastolic Thickness MM 1.0 cm 0.6 - 1.0 / 0.6 - 0.9 cm LVPW Diastolic Thickness MM 1.0 cm 0.6 - 1.0 / 0.6 - 0.9 cm LV Relative Wall Thickness MM 0.4 0.24 - 0.42 / 0.22 - 0.42 LV Mass Index MM 118.0 g/m 49 - 115 / 43 - 95 g/m Aortic Root Diameter MM 2.9 cm AV Cusp Separation MM 1.2 cm DOPPLER MV Area PHT 5.6 cm Mitral E Point Velocity 106.0 cm/s Mitral A Point Velocity 54.3 cm/s Mitral E to A Ratio 2.0 TR Peak Velocity 240.0 cm/s TR Peak Gradient 23.0 mmHg FINDINGS LEFT VENTRICLE Moderate size region of apical akinesis. Ejection fraction is difficult to estimate, possibly 40%. Normal left ventricular size and wall thickness. RIGHT VENTRICLE Normal right ventricular size and systolic function. A prominent moderator band is seen. LEFT ATRIUM The left atrial size is normal. RIGHT ATRIUM The right atrial size is normal. ATRIAL SEPTUM Normal atrial septal thickness without atrial level shunting by limited color doppler interrogation. AORTA The aortic root and proximal ascending aorta are normal in size on limited imaging. MITRAL VALVE Moderate mitral annular calcification. Mild mitral regurgitation. AORTIC VALVE Slightly sclerotic aortic leaflets. No regurgitation. TRICUSPID VALVE There is trace tricuspid valve regurgitation. The estimated pulmonary arterial pressure is 33 mmHg. PULMONARY VALVE The pulmonary valve is not well visualized. VESSELS The inferior vena cava is normal in size. PERICARDIUM No pericardial effusion. Rene Olson MD (Electronically Signed) Final Date:26 June 2017 15:25
--- NOTE | 2017-06-26 15:35 | MB ---
cc: ZACKERY HERNANDEZ M.D. DATE OF CONSULTATION: 06/26/2017 REASON FOR CONSULTATION Abnormal troponin level. HISTORY OF PRESENT ILLNESS The patient is a 76-year-old white male with a history of severe COPD, recently diagnosed bilateral pulmonary emboli, who presented to the hospital with increasing respiratory distress and possible sepsis. Troponin levels were checked and found to be slightly abnormal. The patient denies any recent chest pain. He notes some improvement in his dyspnea since coming into the hospital. He also denies dizziness, syncope, near-syncope, palpitations, pedal edema, orthopnea. For the most part he is sedentary. PAST MEDICAL HISTORY 1. Bilateral pulmonary emboli diagnosed 06/04/2017. 2. COPD. MEDICATIONS Cardiac medications at home: Coumadin 5 mg q.h.s. ALLERGIES NO KNOWN DRUG ALLERGIES. FAMILY HISTORY Noncontributory. There is no family history of cardiac disease. SOCIAL HISTORY The patient smokes about half a pack of cigarettes per day. He was a very heavy smoker in the past for many years. He denies alcohol abuse. REVIEW OF SYSTEMS Review of systems as in the history of present illness, otherwise negative or noncontributory. He also denies headache, abdominal pain, melena, dyspepsia, bright red blood per rectum. PHYSICAL EXAMINATION VITAL SIGNS: His blood pressure is 104/83 with a pulse of 120, respirations 27. GENERAL: He is a well-developed, very thin white male, in no acute distress. HEENT: Jugular venous pressure is normal. Carotid pulses are 2+ bilaterally and without bruits. CHEST: Examination of the chest reveals markedly diminished breath sounds diffusely. CARDIAC: On cardiac examination he has a tachycardic regular rhythm without S3-S4 or murmur. ABDOMEN: On abdominal examination he has a soft, nontender abdomen. Bowel sounds are present. There is no definite hepatosplenomegaly. EXTREMITIES: Examination of the extremities reveals no clubbing, cyanosis or edema. EKG Shows sinus tachycardia, incomplete right bundle branch block, right axis deviation. LABORATORY DATA Laboratory data includes WBC 7.0, hemoglobin 10.3, platelets 405, potassium 4.2, BUN 21, creatinine 0.61, troponin 0.15, INR 2.9. IMAGING STUDIES Chest x-ray shows multifocal airspace consolidation on the left. IMPRESSION Slightly abnormal troponin level in this 76-year-old white male with a history of recently diagnosed bilateral pulmonary emboli, severe COPD. Overall I doubt the slightly abnormal troponin level is due to acute coronary syndrome. I would agree that it is more likely due to "demand ischemia". The troponin level today is 0.15 which is decreased from 06/04/2017, at which time it was 1.05 at the time of diagnosis of pulmonary emboli. No definite acute ST-segment changes are seen on EKG. The patient denies any recent angina-like symptoms. His only risk factor for coronary disease is tobacco abuse. A recent echo unfortunately was very suboptimal to assess left ventricular or valvular function. RECOMMENDATIONS 1. Will try to repeat his echo, hopefully getting better quality to assess his left ventricular function. 2. Await subsequent cardiac enzymes. 3. With his comorbid conditions, overall conservative cardiac evaluation and therapy. MD FELICIA Dahl/URSULA /10:53 AM /3:20 PM MTDD
[2017-06-26] MEDS ORDERED: WARFARIN SOD 5 MG TAB PO SCH (16:00)
[2017-06-26 16:38] LABS: BLOOD GAS BASE EXCESS -3.5 mmol/L (-2-2); BLOOD GAS CARBOXYHEMOGLOBIN 0.9 % (0-4); BLOOD GAS HCO3 20 mmol/L (22-26); BLOOD GAS METHEMOGLOBIN 0.6 % (0-2); BLOOD GAS O2 HGB SATURATION 97 % (90-100); BLOOD GAS OXYGEN CONTENT 14.8 Vol % (12.0-20.0); BLOOD GAS PCO2 32 mmHg (38-42); BLOOD GAS PO2 109 mmHg (61-120); BLOOD GAS TOTAL HGB 10.8 G/DL (12.0-16.0); CRITICAL VALUE NO; OXYGEN DEVICE BIPAP; TEMP CORR TO 98.6
[2017-06-26 16:39] LABS: DRAW SITE ALINE; FIO2 45 %; STAT NO; VENT SETTINGS IPAP15EPAP5
[2017-06-26] MEDS ORDERED: HEPARIN-D5W 25,000 U/250 ML 250 ML IV PRN (19:45)
[2017-06-26] MEDS ORDERED: NOREPINEPHRINE INJ 4 MG in SODIUM CHLOR 0.9% 250 ML INJ 246 ML IV PRN (20:00)
[2017-06-26] MEDS: DOCUSATE SODIUM 50 MG/SENNA 8.6 MG TAB PO SCH (21:00)
--- NOTE | 2017-06-26 21:20 | EKG ---
Date Performed: 06/26/2017 Time Performed: 01:59:39 PTAGE: 76 years EKG: SINUS TACHYCARDIA MARKED RIGHT AXIS DEVIATION INCOMPLETE RIGHT BUNDLE BRANCH BLOCK ABNORMAL ECG PREVIOUS TRACING : 06/04/2017 10.20 Compared to prior tracing no significant change DOCTOR: Molly Joe Interpretating Date/Time 06/26/2017 21:19:55
[2017-06-26 21:36] LABS: APTT (PATIENT) 59.4 SEC (24.3-30.1); INTERNATIONAL NORMALIZED RATIO 5.6 RATIO; PROTHROMBIN TIME - PATIENT 66.7 SEC (9.8-11.6)
[2017-06-26] MEDS: SODIUM CHLORIDE 0.9% FLUSH 10 ML FLUSH IV FLUSH SCH (22:04)
[2017-06-27] VITALS (20 sets, daily range): BP systolic 105–144; BP diastolic 53–71; PULSE 65–95; RESP 12–28; TEMP 97.8–98.6; O2SAT 94–100
[2017-06-27] MEDS: methylPREDNISolone SOD SUCC 40 MG/1 ML VIAL IV PUSH SCH ×4 (00:13→17:26)
[2017-06-27] MEDS: RESP: ALBUTEROL 2.5 MG/IPRATROPIUM 0.5 MG NEB (SCH) NEB ×6 (00:28→21:19)
[2017-06-27] MEDS: NOREPINEPHRINE INJ 4 MG in SODIUM CHLOR 0.9% 250 ML INJ 246 ML IV PRN (04:23)
[2017-06-27 05:07] LABS: AUTOMATED NEUTROPHIL # 11.1 TH/MM3 (1.8-7.7); BASOPHIL % 0.3 % (0.0-2.0); EOSINOPHIL % 0.1 % (0.0-4.0); HEMATOCRIT 28.3 % (39.0-51.0); HEMO FLAGS DIFF FINAL; LYMPH % 2.5 % (9.0-44.0); LYMPHOCYTE # 0.3 TH/MM3 (1.0-4.8); MEAN CELL VOLUME 92.8 FL (80.0-100.0); MEAN CORPUSCULAR HEMOGLOBIN 30.2 PG (27.0-34.0); MEAN CORPUSCULAR HGB CONC 32.6 % (32.0-36.0); MONO % 2.7 % (0.0-8.0); NEUT % 94.4 % (16.0-70.0); PLATELET COUNT 431 TH/MM3 (150-450); RED BLOOD COUNT 3.05 MIL/MM3 (4.50-5.90); RED CELL DISTRIBUTION WIDTH 14.7 % (11.6-17.2); WHITE BLOOD COUNT 11.8 TH/MM3 (4.0-11.0)
[2017-06-27 05:19] LABS: PROTHROMBIN TIME - PATIENT 76.3 SEC (9.8-11.6)
[2017-06-27 05:20] LABS: BICARBONATE 21.3 MEQ/L (21.0-32.0)
[2017-06-27 05:42] LABS: APTT (PATIENT) 109.5 SEC (24.3-30.1); INTERNATIONAL NORMALIZED RATIO 6.4 RATIO
[2017-06-27] MEDS: CEFEPIME INJ 1,000 MG in SODIUM CHLORIDE 0.9% INJ 100 ML IV SCH ×3 (05:58→22:08)
[2017-06-27] MEDS: PANTOPRAZOLE SODIUM 40 MG VIAL IV PUSH SCH (05:58)
[2017-06-27] MEDS: SODIUM CHLOR 0.9% 1000 ML INJ 1,000 ML IV SCH ×2 (06:21→15:19)
[2017-06-27] MEDS: DOCUSATE SODIUM 50 MG/SENNA 8.6 MG TAB PO SCH ×2 (07:50→19:59)
[2017-06-27] MEDS: ASPIRIN 81 MG CHEW TAB CHEW SCH (07:50)
[2017-06-27] MEDS: AZITHROMYCIN INJ 500 MG in SODIUM CHLOR 0.9% 250 ML INJ 250 ML IV SCH (07:51)
[2017-06-27] MEDS: SODIUM CHLORIDE 0.9% FLUSH 10 ML FLUSH IV FLUSH SCH ×2 (07:51→19:59)
--- NOTE | 2017-06-27 08:38 | PD.CARD.PN ---
Subjective Subjective Remarks SOB improving slowly. No CP, dizziness, nausea, palpitations. Slept fairly well. Objective Medications Item Value Date Time Heparin Sodium/ 250 ml @ 9.648 mls/hr 06/26/175 Dextrose TITRATE PRN/IV 06/26/177 Warfarin Sodium 5 mg 06/26/17 1600 (Coumadin) DAILY@1600/PO Norepinephrine 250 ml @ 7.5 mls/hr 06/26/17 0945 Bitartrate 4 mg/ TITRATE PRN/IV 06/27/17 0423 Sodium Chloride Aspirin 81 mg 06/26/17 0900 (Aspirin Chew) DAILY/CHEW 06/27/17 0750 Vital Signs / I&O Vital Signs Date Time Temp Pulse Resp B/P (MAP) Pulse Ox O2 Delivery O2 Flow Rate FiO2 06/27/17 07:46 100 BiPAP 45 06/27/17 07:40 100 45 06/27/17 06:00 68 06/27/17 05:00 97.9 74 12 144/71 (95) 100 06/27/17 04:23 75 101/67 06/27/17 04:00 74 06/27/17 03:59 100 45 06/27/17 02:00 68 06/27/17 01:20 100 45 06/27/17 00:00 76 06/27/17 00:00 98.1 76 14 126/64 (84) 100 06/26/17 22:01 100 45 06/26/17 22:00 68 06/26/17 20:00 73 06/26/17 20:00 98.1 73 18 112/58 (76) 100 06/26/17 19:48 100 45 06/26/17 19:48 100 BiPAP 45 06/26/17 19:00 100 Bi-Pap 45 06/26/17 18:00 94 06/26/17 16:00 98.2 101 29 108/54 (72) 100 06/26/17 16:00 101 06/26/17 15:32 100 45 06/26/17 14:00 96 06/26/17 12:59 91 96/63 06/26/17 12:00 98.2 90 27 84/46 (59) 100 06/26/17 12:00 109 06/26/17 11:28 99 45 06/26/17 10:00 98 06/26/17 09:40 98 66/51 I/O 06/26/17 06/26/17 06/26/17 06/27/17 06/27/17 06/27/17 07:00 15:00 23:00 07:00 15:00 23:00 Intake Total 100 ml 1900 ml 1100 ml 1638 ml Output Total 350 ml 175 ml Balance 100 ml 1900 ml 750 ml 1463 ml Intake IV Total 100 ml 1900 ml 1100 ml 1638 ml Output Urine Total 350 ml 175 ml # Voids 1 # Bowel Movements 0 Physical Exam GENERAL: Well developed, emaciated. No acute distress. HEENT: Jugular venous pressure is normal. CHEST: Diminished breath sounds diffusely. No definite rales. CARDIAC: Regular rate and rhythm without S3, S4, or murmur. ABDOMEN: Soft, nontender, no hepatosplenomegaly. Bowel sounds present. EXTREMITIES: No clubbing, cyanosis, or edema. Laboratory Laboratory Tests Test 06/26/17 10:30 06/26/17 16:22 06/26/17 16:25 06/26/17 20:50 Lactic Acid Level 1.6 mmol/L Total Creatine Kinase 42 U/L 26 U/L Troponin I 0.14 NG/ML 0.08 NG/ML Blood Gas Puncture Site ROMERO Blood Gas Patient Temperature 98.6 Blood Gas HCO3 20 mmol/L Blood Gas Base Excess -3.5 mmol/L Blood Gas Oxygen Saturation 97 % Arterial Blood pH 7.42 Arterial Blood Partial Pressure CO2 32 mmHg Arterial Blood Partial Pressure O2 109 mmHg Arterial Blood Oxygen Content 14.8 Vol % Arterial Blood Carboxyhemoglobin 0.9 % Arterial Blood Methemoglobin 0.6 % Blood Gas Hemoglobin 10.8 G/DL Oxygen Delivery Device BIPAP Blood Gas Ventilator Setting [id number] Blood Gas Inspired Oxygen 45 % Triglycerides Level 52 MG/DL Cholesterol Level 128 MG/DL LDL Cholesterol 66 MG/DL HDL Cholesterol 52.0 MG/DL Cholesterol/HDL Ratio 2.46 RATIO Prothrombin Time 66.7 SEC Prothromb Time International Ratio 5.6 RATIO Activated Partial Thromboplast Time 59.4 SEC Test 06/27/17 04:35 White Blood Count 11.8 TH/MM3 Red Blood Count 3.05 MIL/MM3 Hemoglobin 9.2 GM/DL Hematocrit 28.3 % Mean Corpuscular Volume 92.8 FL Mean Corpuscular Hemoglobin 30.2 PG Mean Corpuscular Hemoglobin Concent 32.6 % Red Cell Distribution Width 14.7 % Platelet Count 431 TH/MM3 Mean Platelet Volume 7.6 FL Neutrophils (%) (Auto) 94.4 % Lymphocytes (%) (Auto) 2.5 % Monocytes (%) (Auto) 2.7 % Eosinophils (%) (Auto) 0.1 % Basophils (%) (Auto) 0.3 % Neutrophils # (Auto) 11.1 TH/MM3 Lymphocytes # (Auto) 0.3 TH/MM3 Monocytes # (Auto) 0.3 TH/MM3 Eosinophils # (Auto) 0.0 TH/MM3 Basophils # (Auto) 0.0 TH/MM3 CBC Comment DIFF FINAL Differential Comment Prothrombin Time 76.3 SEC Prothromb Time International Ratio 6.4 RATIO Activated Partial Thromboplast Time 109.5 SEC Blood Urea Nitrogen 31 MG/DL Creatinine 0.41 MG/DL Random Glucose 181 MG/DL Calcium Level 8.8 MG/DL Sodium Level 137 MEQ/L Potassium Level 4.0 MEQ/L Chloride Level 106 MEQ/L Carbon Dioxide Level 21.3 MEQ/L Anion Gap 10 MEQ/L Estimat Glomerular Filtration Rate 204 ML/MIN Assessment and Plan Problem List: (1) Elevated troponin ICD Codes: R74.8 - Abnormal levels of other serum enzymes Status: Acute Plan: Cardiac status overall stable. No definite angina like symptoms. No definite CHF. Echo does suggest region of apical akinesis suggestive of prior infarction in this region. EF ~40%. BP's too low for beta jon, GAB-I. Rec continue daily aspirin, overall conservative cardiac therapy, evaluation. (2) Bilateral pulmonary embolism ICD Codes: I26.99 - Other pulmonary embolism without acute cor pulmonale Status: Acute Plan: Continue anticoagulation therapy. Code Status full code Discussed Condition With patient Rene Olson MD Jun 27, 2017 08:38
[2017-06-27] MEDS: VASOPRESSIN INJ 40 UNITS in DEXTROSE 5% IN WATER 100ML INJ 98 ML IV SCH ×2 (10:21)
--- NOTE | 2017-06-27 15:00 | HHI.CCPN ---
Subjective Remarks/Hospital Course 06/26: 76-year-old male with a medical history significant for emphysema and recent diagnosis of PE in May 2017 for which she was admitted at [facility] and was subsequently discharged to a fpc facility on Coumadin which she has been taking. Patient presented with a cough going on for the last week with progressive shortness of breath. Per documentation EMS stated he had an elevated temperature on their arrival to the nursing facility and the nurses that were rounding found him to be acutely short of breath with an oxygen saturation in the low 80s. He was placed on a nonrebreather facemask and brought to the hospital at [place]. He was evaluated in the ER where his chest x-ray revealed new infiltrates involving left lung and he was started on empiric antibiotics/ steroids and admitted by the hospitalist service to the floor however his respiratory status declined and he was initiated on BiPAP and transferred to the ICU. She did have a elevated troponin of 0.15 noted in the ER and was given aspirin. Critical care was consulted following patient's transfer to the ICU due to worsening respiratory failure requiring BiPAP and possible need for intubation. I evaluated the patient immediately on being notified by nursing staff and adjusted BiPAP, ordered a stat ABG and bronchodilator treatments. Patient was also looking anxious on BiPAP using accessory muscles of respiration hence a Precedex drip was ordered. History was obtained by reviewing records and discussion with patient and nursing staff. 06/27: On BiPAP overnight. Started on Levophed and vasopressin for hypotension yesterday. This morning he is drowsy though easily arousable on BiPAP with full facemask. Objective Vital Signs Date Time Temp Pulse Resp B/P (MAP) Pulse Ox O2 Delivery O2 Flow Rate FiO2 06/27/17 13:21 85 114/58 06/27/17 12:00 98.1 24 100 06/27/17 11:32 40 06/27/17 07:46 BiPAP Intake and Output 06/27/17 06/27/17 06/28/17 08:00 16:00 00:00 Intake Total 1638 ml 350 ml Output Total 175 ml Balance 1463 ml 350 ml Result Diagram: 06/27/17 0435 06/27/17 0435 Other Results Microbiology Date/Time Source Procedure Growth Status 06/26/17 08:13 Urine Catheterized Urine Legionella Antigen - Final PRESUMPTIVE NEGATIVE FOR LEGIONELLA P... Complete 06/26/17 08:13 Urine Catheterized Urine Streptococcus pneumoniae Antigen (M - Final PRESUMPTIVE NEGATIVE FOR STREPTOCOCCU... Complete Laboratory Tests Test 06/26/17 16:22 Blood Gas Puncture Site ROMERO Blood Gas Patient Temperature 98.6 Blood Gas HCO3 20 mmol/L (22-26) Blood Gas Base Excess -3.5 mmol/L (-2-2) Blood Gas Oxygen Saturation 97 % (90-100) Arterial Blood pH 7.42 (7.380-7.420) Arterial Blood Partial Pressure CO2 32 mmHg (38-42) Arterial Blood Partial Pressure O2 109 mmHg (61-120) Arterial Blood Oxygen Content 14.8 Vol % (12.0-20.0) Arterial Blood Carboxyhemoglobin 0.9 % (0-4) Arterial Blood Methemoglobin 0.6 % (0-2) Blood Gas Hemoglobin 10.8 G/DL (12.0-16.0) Oxygen Delivery Device BIPAP Blood Gas Ventilator Setting [id number] Blood Gas Inspired Oxygen 45 % Imaging Last Impressions Chest X-Ray 06/26/17 0030 Signed Impressions: Service Date/Time: Monday, June 26, 2017 01:00 - CONCLUSION: 1. Multifocal airspace consolidation has developed on the left since prior exam most characteristic of bronchopneumonia or aspiration. Severe emphysema. Alfredo Kim MD Objective Remarks Physical Exam Narrative GENERAL: Drowsy, easily arousable, on BiPAP with full facemask SKIN: Focused skin assessment warm/dry. HEAD: Atraumatic. Normocephalic. EYES: Pupils equal and round. No scleral icterus. ENT: Mucous membranes pink and moist. NECK: Trachea midline. No JVD. CARDIOVASCULAR: Regular rate and rhythm. No murmur appreciated. RESPIRATORY: On BiPAP with full facemask .Air entry decreased bilaterally, scattered rhonchi bilaterally, no wheezing. GASTROINTESTINAL: Abdomen soft, non-tender, nondistended. Bowel sounds present MUSCULOSKELETAL: No obvious deformities. No clubbing. No cyanosis. No edema. NEUROLOGICAL: Drowsy, is here arousable, No obvious cranial nerve deficits. Motor grossly within normal limits. A/P Assessment and Plan 76-year-old male with: Acute respiratory failure requiring BiPAP COPD exacerbation Severe Sepsis Pneumonia Recent pulmonary embolism Elevated troponin with non-ST elevation [place] Old right bundle branch block Plan: Neuro: Follow neuro status. Has not required Precedex. Avoid sedatives and narcotics if possible Cardiovascular: IV hydration, Started on aspirin for elevated troponin. Consulted cardiology. 2-D echo with LVEF 40% and apical hypokinesis. On Levophed and vasopressin for pressor support. Flow Trac for hemodynamic monitoring. SVV 10, cardiac index 2.6, CVP 9. Pulmonary: Continue BiPAP with full facemask. Currently decreased to +10/+5 FiO2 50%. DuoNeb's every 4 hourly and every 2 hourly when necessary. IV Solu- Medrol. If respiratory status declines despite BiPAP may require endotracheal intubation and mechanical ventilation. GI/liver: Keep patient nothing by mouth till improvement in respiratory status. May require Dobbhoff placement if unable to tolerate by mouth. Renal/: IV hydration, strict intake output, monitor and replete electro lites , follow BUN/creatinine. Zepeda catheterization for accurate intake output in this critically ill patient with severe sepsis/pneumonia. ID: Blood cultures, UA and urine C/S if indicated. Check urine for strep pneumo and Legionella antigen. Nasal aspirate for influenza A and B. Empiric antibiotic coverage with IV cefepime. Added is azithromycin for atypical coverage. Endocrine: SSI for glycemic control. Heme: On Coumadin for full anticoagulation - currently on hold as INR went up greater than 6 on 06/27. Heparin drip placed on hold on 06/27 due to rising INR. Follow repeat coags later today and INR daily. No active bleeding noted. May require vitamin K if INR continues to increase. Prophylaxis: PPI. Coumadin for full anticoagulation for recent PE - on hold due to supratherapeutic INR. Discussed current clinical status with patient at bedside on 06/26. He voiced understanding regarding his condition. I also asked him to clarify if he would agree with intubation and mechanical ventilation if his respiratory status was declining or if he would want CPR in case of a cardiac arrest and he wish to continue aggressive care at this time. His prognosis appears guarded in view of advanced emphysema with recent PE and now sepsis/pneumonia. Condition critical . Patient at high risk for deterioration and needing intubation.. Time spent on critical care excluding procedures 30 minutes Anastacio Jiménez MD Jun 27, 2017 15:00
[2017-06-27] MEDS: FUROSEMIDE 20 MG/2 ML VIAL IV PUSH SCH (15:19)
[2017-06-27 17:15] LABS: BLOOD GAS BASE EXCESS -3.3 mmol/L (-2-2); BLOOD GAS CARBOXYHEMOGLOBIN 0.7 % (0-4); BLOOD GAS HCO3 20 mmol/L (22-26); BLOOD GAS METHEMOGLOBIN 0.6 % (0-2); BLOOD GAS O2 HGB SATURATION 99 % (90-100); BLOOD GAS OXYGEN CONTENT 15.4 Vol % (12.0-20.0); BLOOD GAS PCO2 29 mmHg (38-42); BLOOD GAS PO2 354 mmHg (61-120); BLOOD GAS TOTAL HGB 10.4 G/DL (12.0-16.0); CRITICAL VALUE NO; DRAW SITE ART LINE; FIO2 100 %; LITER FLOW 15 L/M; NUMBER OF ARTERIAL PUNCTURES 0; STAT NO; TEMP CORR TO 98.6; ULNAR PULSE PRESENT
[2017-06-27 17:28] LABS: APTT (PATIENT) 67.1 SEC (24.3-30.1)
[2017-06-27 17:37] LABS: FIBRINOGEN GREATER THAN 860 mg/dL (227-377)
[2017-06-27 17:39] LABS: INTERNATIONAL NORMALIZED RATIO 8.7 RATIO
[2017-06-27] MEDS ORDERED: PHYTONADIONE INJ 10 MG in DEXTROSE 5% IN WATER INJ 50 ML IV ONE ×2 (20:00)
[2017-06-28] VITALS (18 sets, daily range): BP systolic 110–127; BP diastolic 52–64; PULSE 80–126; RESP 25–31; TEMP 97–98.2; O2SAT 92–99
[2017-06-28] MEDS: RESP: ALBUTEROL 2.5 MG/IPRATROPIUM 0.5 MG NEB (SCH) NEB ×6 (01:04→22:40)
[2017-06-28] MEDS: SODIUM CHLOR 0.9% 1000 ML INJ 1,000 ML IV SCH (03:38)
[2017-06-28] MEDS: methylPREDNISolone SOD SUCC 40 MG/1 ML VIAL IV PUSH SCH ×4 (03:39→23:54)
[2017-06-28] MEDS: CEFEPIME INJ 1,000 MG in SODIUM CHLORIDE 0.9% INJ 100 ML IV SCH ×3 (05:25→21:16)
[2017-06-28] MEDS: PANTOPRAZOLE SODIUM 40 MG VIAL IV PUSH SCH (05:25)
[2017-06-28 05:33] LABS: AUTOMATED NEUTROPHIL # 14.6 TH/MM3 (1.8-7.7); HEMATOCRIT 25.5 % (39.0-51.0); HEMO FLAGS DIFF FINAL; LYMPH % 1.7 % (9.0-44.0); LYMPHOCYTE # 0.3 TH/MM3 (1.0-4.8); MEAN CELL VOLUME 93.6 FL (80.0-100.0); MEAN CORPUSCULAR HEMOGLOBIN 30.7 PG (27.0-34.0); MEAN CORPUSCULAR HGB CONC 32.8 % (32.0-36.0); MONO % 2.6 % (0.0-8.0); NEUT % 95.7 % (16.0-70.0); PLATELET COUNT 378 TH/MM3 (150-450); RED BLOOD COUNT 2.72 MIL/MM3 (4.50-5.90); RED CELL DISTRIBUTION WIDTH 15.1 % (11.6-17.2); WHITE BLOOD COUNT 15.2 TH/MM3 (4.0-11.0)
[2017-06-28 05:42] LABS: INTERNATIONAL NORMALIZED RATIO 1.5 RATIO; PROTHROMBIN TIME - PATIENT 16.3 SEC (9.8-11.6)
[2017-06-28 05:51] LABS: ANION GAP 9 MEQ/L (5-15); AST (GOT) 10 U/L (15-37); BICARBONATE 23.8 MEQ/L (21.0-32.0); BLOOD UREA NITROGEN 39 MG/DL (7-18); CHLORIDE 109 MEQ/L (98-107); GLOMERULAR FILTRATION RATE 179 ML/MIN (>89); POTASSIUM 3.8 MEQ/L (3.5-5.1); SODIUM (NA) 142 MEQ/L (136-145)
[2017-06-28 05:55] LABS: ALKALINE PHOSPHATASE 111 U/L (45-117); ALT (GPT) 19 U/L (12-78); TOTAL BILIRUBIN ADULT 0.3 MG/DL (0.2-1.0)
--- NOTE | 2017-06-28 06:36 | RADRPT ---
EXAM DATE/TIME: 06/28/2017 05:13 [facility] COMPARISON: CHEST SINGLE AP, June 26, 2017, 11:20. INDICATIONS : Shortness of breath. MEDICAL HISTORY : Dyspnea, pulmonary embolism SURGICAL HISTORY : None. ENCOUNTER: Subsequent ACUITY: 3 days PAIN SCORE: Non-responsive. LOCATION: chest FINDINGS: A single view of the chest demonstrates extensive emphysematous changes bilaterally. Superimposed mix ed interstitial and air space process on the left is unchanged. Heart size is normal. Right IJ centra l venous catheter is unchanged. CONCLUSION: 1. Severe bilateral emphysematous changes. 2. Stable mixed interstitial and airspace process in the left hemithorax, unchanged. Chava Adame MD on June 28, 2017 at 6:33 Board Certified Radiologist. This report was verified electronically.
[2017-06-28 06:38] LABS: APTT (PATIENT) 41.1 SEC (24.3-30.1)
--- NOTE | 2017-06-28 06:54 | PD.CARD.PN ---
Subjective Subjective Remarks Denies CP, abdominal pain. Dyspnea continues to improve. Slight lightheadedness occasionally. Objective Medications Item Value Date Time Furosemide 20 mg 06/27/17 1445 (Lasix Inj) DAILY/IV PUSH 06/27/17 1519 Vasopressin 40 100 ml @ 4.5 mls/hr 06/26/17 1217 units/Dextrose .[id number] 06/27/17 1021 Norepinephrine 250 ml @ 7.5 mls/hr 06/26/17 0945 Bitartrate 4 mg/ TITRATE PRN/IV 06/27/17 0423 Sodium Chloride Aspirin 81 mg 06/26/17 0900 (Aspirin Chew) DAILY/CHEW 06/27/17 0750 Vital Signs / I&O Vital Signs Date Time Temp Pulse Resp B/P (MAP) Pulse Ox O2 Delivery O2 Flow Rate FiO2 06/28/17 06:00 89 06/28/17 04:00 80 06/28/17 04:00 97.5 80 25 122/64 (83) 99 06/28/17 03:00 98 Venturi Mask 6.00 50 06/28/17 02:00 90 06/28/17 00:00 82 06/28/17 00:00 97.0 82 25 127/64 (85) 97 06/27/17 22:00 95 06/27/17 21:25 96 Venturi Mask 6.00 50 06/27/17 20:15 92 Venturi Mask 6.00 50 06/27/17 20:00 98.6 71 28 125/55 (78) 94 06/27/17 20:00 71 06/27/17 19:00 94 Venturi Mask 6.00 40 06/27/17 18:00 65 06/27/17 17:54 74 104/51 06/27/17 16:02 100 Non-Rebreather 15.00 06/27/17 16:00 97.8 82 24 115/56 (75) 100 06/27/17 16:00 99 Venturi Mask 6.00 40 06/27/17 16:00 82 06/27/17 14:00 72 06/27/17 13:21 85 114/58 06/27/17 12:00 66 06/27/17 12:00 98.1 66 24 116/53 (74) 100 06/27/17 11:32 99 40 06/27/17 10:21 81 121/61 06/27/17 10:00 66 06/27/17 08:00 98.1 82 18 105/59 (74) 99 06/27/17 08:00 82 06/27/17 07:46 100 BiPAP 45 06/27/17 07:40 100 45 06/27/17 07:00 100 Bi-Pap 45 I/O 06/27/17 06/27/17 06/27/17 06/28/17 06/28/17 06/28/17 07:00 15:00 23:00 07:00 15:00 23:00 Intake Total 1638 ml 450 ml 1060 ml 1780.2 ml Output Total 175 ml 525 ml 250 ml Balance 1463 ml 450 ml 535 ml 1530.2 ml Intake IV Total 1638 ml 450 ml 1060 ml 1780.2 ml Output Urine Total 175 ml 525 ml 250 ml # Bowel Movements 0 0 0 Physical Exam GENERAL: Well developed, emaciated. No acute distress. HEENT: Jugular venous pressure is normal. CHEST: Diminished breath sounds diffusely. No definite rales. CARDIAC: Regular rate and rhythm without S3, S4, or murmur. ABDOMEN: Soft, nontender, no hepatosplenomegaly. Bowel sounds present. EXTREMITIES: No clubbing, cyanosis, or edema. Laboratory Laboratory Tests Test 06/27/17 16:45 06/27/17 17:05 06/28/17 04:45 Prothrombin Time 105.0 SEC 16.3 SEC Prothromb Time International Ratio 8.7 RATIO 1.5 RATIO Activated Partial Thromboplast Time 67.1 SEC 41.1 SEC Fibrinogen GREATER THAN 860 mg/dL Blood Gas Puncture Site ART LINE Blood Gas Patient Temperature 98.6 Blood Gas HCO3 20 mmol/L Blood Gas Base Excess -3.3 mmol/L Blood Gas Oxygen Saturation 99 % Arterial Blood pH 7.45 Arterial Blood Partial Pressure CO2 29 mmHg Arterial Blood Partial Pressure O2 354 mmHg Arterial Blood Oxygen Content 15.4 Vol % Arterial Blood Carboxyhemoglobin 0.7 % Arterial Blood Methemoglobin 0.6 % Blood Gas Hemoglobin 10.4 G/DL Oxygen Delivery Device Non-Rebreathing Mask Blood Gas Liter Flow 15 L/M Blood Gas Inspired Oxygen 100 % White Blood Count 15.2 TH/MM3 Red Blood Count 2.72 MIL/MM3 Hemoglobin 8.4 GM/DL Hematocrit 25.5 % Mean Corpuscular Volume 93.6 FL Mean Corpuscular Hemoglobin 30.7 PG Mean Corpuscular Hemoglobin Concent 32.8 % Red Cell Distribution Width 15.1 % Platelet Count 378 TH/MM3 Mean Platelet Volume 7.6 FL Neutrophils (%) (Auto) 95.7 % Lymphocytes (%) (Auto) 1.7 % Monocytes (%) (Auto) 2.6 % Eosinophils (%) (Auto) 0.0 % Basophils (%) (Auto) 0.0 % Neutrophils # (Auto) 14.6 TH/MM3 Lymphocytes # (Auto) 0.3 TH/MM3 Monocytes # (Auto) 0.4 TH/MM3 Eosinophils # (Auto) 0.0 TH/MM3 Basophils # (Auto) 0.0 TH/MM3 CBC Comment DIFF FINAL Differential Comment Blood Urea Nitrogen 39 MG/DL Creatinine 0.46 MG/DL Random Glucose 137 MG/DL Total Protein 5.5 GM/DL Albumin 1.7 GM/DL Calcium Level 8.5 MG/DL Alkaline Phosphatase 111 U/L Aspartate Amino Transf (AST/SGOT) 10 U/L Alanine Aminotransferase (ALT/SGPT) 19 U/L Total Bilirubin 0.3 MG/DL Sodium Level 142 MEQ/L Potassium Level 3.8 MEQ/L Chloride Level 109 MEQ/L Carbon Dioxide Level 23.8 MEQ/L Anion Gap 9 MEQ/L Estimat Glomerular Filtration Rate 179 ML/MIN Assessment and Plan Problem List: (1) Elevated troponin ICD Codes: R74.8 - Abnormal levels of other serum enzymes Status: Acute Plan: Cardiac status overall stable. No definite angina. No definite CHF. Echo does suggest region of apical akinesis suggestive of prior infarction in this region. EF ~40%. Rec beta jon, GAB-I when BP's better. Rec continue daily aspirin, overall conservative cardiac therapy, evaluation. Dr. Sanchez to see patient PRN over the weekend. (2) Bilateral pulmonary embolism ICD Codes: I26.99 - Other pulmonary embolism without acute cor pulmonale Status: Acute Plan: Continue anticoagulation therapy. Code Status full code Discussed Condition With patient Rene Olson MD Jun 28, 2017 06:54
[2017-06-28] MEDS: VASOPRESSIN INJ 40 UNITS in DEXTROSE 5% IN WATER 100ML INJ 98 ML IV SCH ×2 (08:45)
[2017-06-28] MEDS: SODIUM CHLORIDE 0.9% FLUSH 10 ML FLUSH IV FLUSH SCH ×2 (09:00→20:47)
--- NOTE | 2017-06-28 09:34 | PD.PROCEDR ---
Procedure Note Procedure Date of procedure: 06/26/2017 Procedure: Right axillary arterial catheter placement with ultrasound guidance Preop diagnosis: Hypotension, septic shock, pneumonia Postop diagnosis: Same Anesthesia: 1% lidocaine for local infiltration anesthesia Procedure: After sterile prepping and draping using 1% lidocaine for local infiltration anesthesia, right axillary artery was visualized using ultrasound vessel finder and was cannulated using an introducer needle with bright pulsatile blood return. A guidewire was passed through the introducer needle without any resistance and the needle was then removed. A 12 cm 20-gauge arterial catheter was passed over the guidewire by modified Seldinger's technique up to the 12 cm riri and after removal of guidewire catheter was connected to transducer tubing with good waveform being obtained on the monitor. Biopatch was applied to the insertion site and catheter was sutured in place. Sterile Bi0-occlusive dressing was applied to the site. Patient tolerated the procedure well with no immediate complications noted. Anastacio Jiménez MD Jun 28, 2017 09:34
--- NOTE | 2017-06-28 09:41 | HHI.CCPN ---
Subjective Remarks/Hospital Course 06/26: 76-year-old male with a medical history significant for emphysema and recent diagnosis of PE in May 2017 for which she was admitted at [facility] and was subsequently discharged to a custodial facility on Coumadin which she has been taking. Patient presented with a cough going on for the last week with progressive shortness of breath. Per documentation EMS stated he had an elevated temperature on their arrival to the nursing facility and the nurses that were rounding found him to be acutely short of breath with an oxygen saturation in the low 80s. He was placed on a nonrebreather facemask and brought to the hospital at [place]. He was evaluated in the ER where his chest x-ray revealed new infiltrates involving left lung and he was started on empiric antibiotics/ steroids and admitted by the hospitalist service to the floor however his respiratory status declined and he was initiated on BiPAP and transferred to the ICU. She did have a elevated troponin of 0.15 noted in the ER and was given aspirin. Critical care was consulted following patient's transfer to the ICU due to worsening respiratory failure requiring BiPAP and possible need for intubation. I evaluated the patient immediately on being notified by nursing staff and adjusted BiPAP, ordered a stat ABG and bronchodilator treatments. Patient was also looking anxious on BiPAP using accessory muscles of respiration hence a Precedex drip was ordered. History was obtained by reviewing records and discussion with patient and nursing staff. 06/27: On BiPAP overnight. Started on Levophed and vasopressin for hypotension yesterday. This morning he is drowsy though easily arousable on BiPAP with full facemask. 06/28: Off BiPAP since yesterday, tolerating Ventimask. Awake and alert, following commands. Titrated off Levophed. On low-dose vasopressin. Being started on heparin GTT as INR below 2 after administering vitamin K on 06/27 for INR greater than 8. Objective Vital Signs Date Time Temp Pulse Resp B/P (MAP) Pulse Ox O2 Delivery O2 Flow Rate FiO2 06/28/17 08:21 98 Venturi Mask 40 06/28/17 08:00 98.1 87 27 125/60 (81) 06/28/17 07:00 6.00 Intake and Output 06/28/17 06/28/17 06/29/17 08:00 16:00 00:00 Intake Total 1780.2 ml Output Total 250 ml Balance 1530.2 ml Result Diagram: 06/28/17 0445 06/28/17 0445 Other Results Microbiology Date/Time Source Procedure Growth Status 06/26/17 08:13 Urine Catheterized Urine Legionella Antigen - Final PRESUMPTIVE NEGATIVE FOR LEGIONELLA P... Complete 06/26/17 08:13 Urine Catheterized Urine Streptococcus pneumoniae Antigen (M - Final PRESUMPTIVE NEGATIVE FOR STREPTOCOCCU... Complete Laboratory Tests Test 06/27/17 17:05 Blood Gas Puncture Site ART LINE Blood Gas Patient Temperature 98.6 Blood Gas HCO3 20 mmol/L (22-26) Blood Gas Base Excess -3.3 mmol/L (-2-2) Blood Gas Oxygen Saturation 99 % (90-100) Arterial Blood pH 7.45 (7.380-7.420) Arterial Blood Partial Pressure CO2 29 mmHg (38-42) Arterial Blood Partial Pressure O2 354 mmHg (61-120) Arterial Blood Oxygen Content 15.4 Vol % (12.0-20.0) Arterial Blood Carboxyhemoglobin 0.7 % (0-4) Arterial Blood Methemoglobin 0.6 % (0-2) Blood Gas Hemoglobin 10.4 G/DL (12.0-16.0) Oxygen Delivery Device Non-Rebreathing Mask Blood Gas Liter Flow 15 L/M Blood Gas Inspired Oxygen 100 % Imaging Last Impressions Chest X-Ray 06/26/17 0030 Signed Impressions: Service Date/Time: Monday, June 26, 2017 01:00 - CONCLUSION: 1. Multifocal airspace consolidation has developed on the left since prior exam most characteristic of bronchopneumonia or aspiration. Severe emphysema. Alfredo Kim MD Objective Remarks Physical Exam Narrative GENERAL: Drowsy, easily arousable, on 50% Ventimask SKIN: Focused skin assessment warm/dry. HEAD: Atraumatic. Normocephalic. EYES: Pupils equal and round. No scleral icterus. ENT: Mucous membranes pink and moist. NECK: Trachea midline. No JVD. CARDIOVASCULAR: Regular rate and rhythm. No murmur appreciated. RESPIRATORY: On 50% Ventimask.Air entry decreased bilaterally, scattered rhonchi bilaterally, no wheezing. GASTROINTESTINAL: Abdomen soft, non-tender, nondistended. Bowel sounds present MUSCULOSKELETAL: No obvious deformities. No clubbing. No cyanosis. No edema. NEUROLOGICAL: Drowsy, easily arousable, No obvious cranial nerve deficits. Motor grossly within normal limits. A/P Assessment and Plan 76-year-old male with: Acute respiratory failure COPD exacerbation Severe Sepsis Pneumonia Recent pulmonary embolism Elevated troponin with non-ST elevation SC Old right bundle branch block Plan: Neuro: Follow neuro status. Has not required Precedex. Avoid sedatives and narcotics if possible Cardiovascular: IV hydration, Started on aspirin for elevated troponin. Consulted cardiology. 2-D echo with LVEF 40% and apical hypokinesis. Off Levophed. Titrate off vasopressin gtt if BP allows. Flow Trac for hemodynamic monitoring. SVV 10, cardiac index 2.6, CVP 9. Pulmonary: Off BiPAP currently on Ventimask. DuoNeb's every 4 hourly and every 2 hourly when necessary. IV Solu-Medrol. GI/liver: Speech and swallow eval to decide PO diet. May require Dobbhoff placement if unable to tolerate by mouth. Renal/: IV hydration, strict intake output, monitor and replete electro lites , follow BUN/creatinine. Zepeda catheterization for accurate intake output in this critically ill patient with severe sepsis/pneumonia. ID: Blood cultures, UA and urine C/S if indicated. Urine for strep pneumo and Legionella antigen negative. Nasal aspirate for influenza A and B pending. Empiric antibiotic coverage with IV cefepime. Added is azithromycin for atypical coverage. Endocrine: SSI for glycemic control. Heme: On Coumadin for full anticoagulation at home- currently on hold as INR went up greater than 6 on 06/27. No active bleeding noted. Given vitamin K 10 mg IV on 06/27 in view of INR greater than 8. INR on 06/28 down to 1.5. Will start heparin GTT without bolus for anticoagulation. Eventually once tolerating by mouth Will consider resuming Coumadin. Prophylaxis: PPI. Coumadin for full anticoagulation for recent PE -starting heparin GTT for anticoagulation on 06/28 Discussed current clinical status with patient at bedside on 06/26. He voiced understanding regarding his condition. I also asked him to clarify if he would agree with intubation and mechanical ventilation if his respiratory status was declining or if he would want CPR in case of a cardiac arrest and he wish to continue aggressive care at this time. His prognosis appears guarded in view of advanced emphysema with recent PE and now sepsis/pneumonia. Updated patient on 06/28 regarding current clinical status including pneumonia and he voiced understanding. Plan to consult hospitalist service if he stays off vasopressin today. Anastacio Jiménez MD Jun 28, 2017 09:41
[2017-06-28] MEDS: ASPIRIN 81 MG CHEW TAB CHEW SCH (09:55)
[2017-06-28] MEDS: DOCUSATE SODIUM 50 MG/SENNA 8.6 MG TAB PO SCH ×2 (09:55→20:47)
[2017-06-28] MEDS: FUROSEMIDE 20 MG/2 ML VIAL IV PUSH SCH (09:55)
[2017-06-28] MEDS: AZITHROMYCIN INJ 500 MG in SODIUM CHLOR 0.9% 250 ML INJ 250 ML IV SCH (09:55)
[2017-06-28] MEDS: HEPARIN-D5W 25,000 U/250 ML 250 ML IV PRN (10:01)
[2017-06-28 21:53] LABS: APTT (PATIENT) 52.3 SEC (24.3-30.1)
[2017-06-28 23:40] LABS: BLOOD GAS BASE EXCESS -0.6 mmol/L (-2-2); BLOOD GAS HCO3 23 mmol/L (22-26); BLOOD GAS METHEMOGLOBIN 0.7 % (0-2); BLOOD GAS O2 HGB SATURATION 79 % (90-100); BLOOD GAS OXYGEN CONTENT 14.5 Vol % (12.0-20.0); BLOOD GAS PCO2 31 mmHg (38-42); BLOOD GAS PO2 45 mmHg (61-120); BLOOD GAS TOTAL HGB 13.1 G/DL (12.0-16.0); TEMP CORR TO 98.6
[2017-06-28 23:41] LABS: CRITICAL VALUE YES; DRAW SITE RT RADIAL; LITER FLOW 4 L/M; NUMBER OF ARTERIAL PUNCTURES 2; OXYGEN DEVICE NASAL CANNULA; STAT NO; ULNAR PULSE PRESENT
[2017-06-29] VITALS (19 sets, daily range): BP systolic 110–134; BP diastolic 60–74; PULSE 93–110; RESP 14–31; TEMP 97.2–98.4; O2SAT 92–100
[2017-06-29] MEDS: RESP: ALBUTEROL 2.5 MG/IPRATROPIUM 0.5 MG NEB (SCH) NEB ×6 (00:13→19:56)
[2017-06-29] MEDS: SODIUM CHLOR 0.9% 1000 ML INJ 1,000 ML IV SCH ×2 (01:52→21:54)
[2017-06-29] MEDS: HEPARIN-D5W 25,000 U/250 ML 250 ML IV PRN (01:54)
[2017-06-29] MEDS: CEFEPIME INJ 1,000 MG in SODIUM CHLORIDE 0.9% INJ 100 ML IV SCH ×3 (05:04→21:17)
[2017-06-29] MEDS: PANTOPRAZOLE SODIUM 40 MG VIAL IV PUSH SCH (05:04)
[2017-06-29] MEDS: methylPREDNISolone SOD SUCC 40 MG/1 ML VIAL IV PUSH SCH ×3 (05:04→17:03)
[2017-06-29] MEDS: VASOPRESSIN INJ 40 UNITS in DEXTROSE 5% IN WATER 100ML INJ 98 ML IV SCH ×2 (06:55)
[2017-06-29 07:55] LABS: INTERNATIONAL NORMALIZED RATIO 1.1 RATIO; PROTHROMBIN TIME - PATIENT 12.3 SEC (9.8-11.6)
[2017-06-29 08:19] LABS: APTT (PATIENT) 38.3 SEC (24.3-30.1)
[2017-06-29] MEDS: FUROSEMIDE 20 MG/2 ML VIAL IV PUSH SCH (08:54)
[2017-06-29] MEDS: AZITHROMYCIN INJ 500 MG in SODIUM CHLOR 0.9% 250 ML INJ 250 ML IV SCH (08:54)
[2017-06-29] MEDS: SODIUM CHLORIDE 0.9% FLUSH 10 ML FLUSH IV FLUSH SCH ×2 (08:54→20:33)
[2017-06-29] MEDS: ASPIRIN 81 MG CHEW TAB CHEW SCH (08:54)
[2017-06-29] MEDS: DOCUSATE SODIUM 50 MG/SENNA 8.6 MG TAB PO SCH ×2 (09:00→20:33)
--- NOTE | 2017-06-29 14:00 | HHI.PR ---
Subjective Remarks Slow improvement. Patient still has cough and dyspnea. He still not tolerant of nasal cannula. He remains on mask for oxygenation at a high rate. Objective Vital Signs Date Time Temp Pulse Resp B/P (MAP) Pulse Ox O2 Delivery O2 Flow Rate FiO2 06/29/17 12:00 98.4 94 24 115/70 (85) 96 06/29/17 12:00 94 06/29/17 10:00 106 06/29/17 08:00 98.1 105 26 110/63 (79) 95 06/29/17 08:00 105 06/29/17 07:49 92 Venturi Mask 6.00 35 06/29/17 07:00 100 Bi-Pap 35 06/29/17 06:00 108 06/29/17 05:57 99 35 06/29/17 04:00 97.7 104 31 134/74 (94) 98 06/29/17 04:00 104 06/29/17 03:39 100 40 06/29/17 02:00 93 06/29/17 00:15 99 Bi-Pap 35 06/29/17 00:15 99 40 06/29/17 00:00 99 06/29/17 00:00 97.2 99 24 124/65 (84) 99 06/28/17 23:42 92 Venturi Mask 6.00 50 06/28/17 23:35 98 Venturi Mask 6.00 50 06/28/17 22:51 95 Nasal Cannula 4.00 06/28/17 22:42 94 Nasal Cannula 5.00 06/28/17 22:00 126 06/28/17 20:00 98.2 98 28 118/62 (80) 95 06/28/17 20:00 98 06/28/17 19:00 96 Nasal Cannula 4.00 06/28/17 18:00 107 06/28/17 16:00 102 06/28/17 16:00 97.9 97 31 118/52 (74) 92 06/28/17 14:00 95 I/O 06/28/17 06/28/17 06/28/17 06/29/17 06/29/17 06/29/17 07:00 15:00 23:00 07:00 15:00 23:00 Intake Total 1780.2 ml 245 ml 1205.2 ml 811 ml 250 ml Output Total 250 ml 650 ml 325 ml Balance 1530.2 ml 245 ml 555.2 ml 486 ml 250 ml Intake Oral 240 ml 40 ml IV Total 1780.2 ml 245 ml 965.2 ml 771 ml 250 ml Output Urine Total 250 ml 650 ml 325 ml # Bowel Movements 0 0 1 Result Diagram: 06/28/1744406/28/17444 Objective Remarks GENERAL: NAD, A&Ox3 HEAD: Normocephalic. NECK: Supple, trachea midline. No lymphadenopathy. EYES: No scleral icterus. No injection or drainage. CARDIOVASCULAR: Regular rate and rhythm without murmurs, gallops, or rubs. RESPIRATORY: Breath sounds equal bilaterally. No accessory muscle use. Poor excursion bilaterally. Crackles bilaterally. GASTROINTESTINAL: Abdomen soft, non-tender, nondistended. MUSCULOSKELETAL: No cyanosis, or edema. SKIN: Warm and dry. NEURO: No focal neurological deficitis. A/P Problem List: (1) Bilateral pulmonary embolism ICD Code: I26.99 - Other pulmonary embolism without acute cor pulmonale Status: Acute (2) Pneumonia ICD Code: J18.9 - Pneumonia, unspecified organism Status: Acute (3) Acute respiratory failure with hypoxemia ICD Code: J96.01 - Acute respiratory failure with hypoxia (4) Hypoxia ICD Code: R09.02 - Hypoxemia Status: Acute (5) COPD (chronic obstructive pulmonary disease) ICD Code: J44.9 - Chronic obstructive pulmonary disease, unspecified Assessment and Plan Assessment and plan 76-year-old male with COPD history admitted secondary to pneumonia and hypoxia. He also showed evidence of a non-ST elevation PA. Patient is status post pulmonary embolism and is on Coumadin previously for this. Acute respiratory failure COPD exacerbation Pneumonia Recent pulmonary embolism Continue supportive oxygenation as needed Continue Venturi mask for now Wean oxygen as tolerated Continue IV Solu-Medrol Continue cefepime and azithromycin Resume Coumadin Follow INR Continue heparin as bridge Severe Sepsis Resolved Elevated troponin with non-ST elevation PA Old right bundle branch block Congestive heart failure Etiology likely correlated with sepsis Latest ejection fraction is 40% Continue aspirin Cardiology following DVT prophylaxis Heparin Coumadin resumed to replace heparin once therapeutic Problem Qualifiers (1) Pneumonia: Qualified Codes: J18.9 - Pneumonia, unspecified organism Clemente Cerna MD Jun 29, 2017 14:00
[2017-06-29] MEDS: WARFARIN SOD 4 MG TAB PO SCH (17:03)
[2017-06-29 19:43] LABS: APTT (PATIENT) 74.1 SEC (24.3-30.1)
[2017-06-30] VITALS (18 sets, daily range): BP systolic 121–167; BP diastolic 57–87; PULSE 100–126; RESP 20–24; TEMP 97.9–99.1; O2SAT 92–98
[2017-06-30] MEDS: RESP: ALBUTEROL 2.5 MG/IPRATROPIUM 0.5 MG NEB (SCH) NEB ×2 (00:09→03:54)
[2017-06-30 01:07] LABS: MAGNESIUM 1.7 MG/DL (1.5-2.5)
[2017-06-30] MEDS: methylPREDNISolone SOD SUCC 40 MG/1 ML VIAL IV PUSH SCH ×5 (01:07→23:11)
[2017-06-30 03:21] LABS: AUTOMATED NEUTROPHIL # 18.3 TH/MM3 (1.8-7.7); BASOPHIL # 0.1 TH/MM3 (0-0.2); BASOPHIL % 0.3 % (0.0-2.0); HEMATOCRIT 25.4 % (39.0-51.0); LYMPHOCYTE # 0.2 TH/MM3 (1.0-4.8); MEAN CELL VOLUME 93.2 FL (80.0-100.0); MEAN CORPUSCULAR HGB CONC 33.3 % (32.0-36.0); MONO % 2.2 % (0.0-8.0); NEUT % 96.5 % (16.0-70.0); PLATELET COUNT 438 TH/MM3 (150-450); RED BLOOD COUNT 2.73 MIL/MM3 (4.50-5.90); RED CELL DISTRIBUTION WIDTH 15.3 % (11.6-17.2)
[2017-06-30 03:23] LABS: HEMO FLAGS AUTO DIFF
[2017-06-30] MEDS: HEPARIN-D5W 25,000 U/250 ML 250 ML IV PRN (03:32)
[2017-06-30 03:38] LABS: INTERNATIONAL NORMALIZED RATIO 1.3 RATIO; PROTHROMBIN TIME - PATIENT 14.9 SEC (9.8-11.6)
[2017-06-30 03:45] LABS: ALT (GPT) 24 U/L (12-78); ANION GAP 7 MEQ/L (5-15); AST (GOT) 18 U/L (15-37); BLOOD UREA NITROGEN 34 MG/DL (7-18); CHLORIDE 111 MEQ/L (98-107); GLOMERULAR FILTRATION RATE 149 ML/MIN (>89); POTASSIUM 3.6 MEQ/L (3.5-5.1); SODIUM (NA) 144 MEQ/L (136-145)
[2017-06-30 03:47] LABS: ALKALINE PHOSPHATASE 146 U/L (45-117); TOTAL BILIRUBIN ADULT 0.3 MG/DL (0.2-1.0)
[2017-06-30 04:04] LABS: SCAN/DIFF AUTO DIFF CONFIRMED
[2017-06-30 04:05] LABS: PLATELET ESTIMATE SMEAR NORMAL (NORMAL)
[2017-06-30 04:13] LABS: PLATELET MORPHOLOGY NORMAL (NORMAL)
[2017-06-30] MEDS: VASOPRESSIN INJ 40 UNITS in DEXTROSE 5% IN WATER 100ML INJ 98 ML IV SCH ×2 (04:27)
[2017-06-30] MEDS: CEFEPIME INJ 1,000 MG in SODIUM CHLORIDE 0.9% INJ 100 ML IV SCH ×3 (05:00→21:27)
[2017-06-30] MEDS: PANTOPRAZOLE SODIUM 40 MG VIAL IV PUSH SCH (05:00)
[2017-06-30] MEDS: FUROSEMIDE 20 MG/2 ML VIAL IV PUSH SCH (07:34)
[2017-06-30] MEDS: DOCUSATE SODIUM 50 MG/SENNA 8.6 MG TAB PO SCH ×2 (07:35→20:11)
[2017-06-30] MEDS: ASPIRIN 81 MG CHEW TAB CHEW SCH (07:35)
[2017-06-30] MEDS: SODIUM CHLORIDE 0.9% FLUSH 10 ML FLUSH IV FLUSH SCH ×2 (07:35→20:11)
[2017-06-30] MEDS: AZITHROMYCIN INJ 500 MG in SODIUM CHLOR 0.9% 250 ML INJ 250 ML IV SCH (07:35)
[2017-06-30] MEDS: RESP: ALBUTEROL 2.5 MG/IPRATROPIUM 0.5 MG NEB (PRN) NEB ×2 (08:27→20:07)
--- NOTE | 2017-06-30 09:40 | RADRPT ---
EXAM DATE/TIME: 06/30/2017 08:40 [facility] COMPARISON: CHEST SINGLE AP, June 28, 2017, 5:13. INDICATIONS : Shortness of breath, concern for pneumonia. MEDICAL HISTORY : Dyspnea. Pulmonary embolism. SURGICAL HISTORY : None. ENCOUNTER: Initial ACUITY: 1 day PAIN SCORE: 0/10 LOCATION: Bilateral chest FINDINGS: There is a right internal jugular central line in good position. The heart size is normal. There cont inues to be mixed interstitial and alveolar consolidation throughout much of the left lung. There is hyperinflation of the lungs. There is underlying interstitial prominence in the right lung. There is a mild left pleural effusion. CONCLUSION: 1. Persistent mixed interstitial nodular disease throughout the left lung. This appears worse on the current exam. 2. Hyperinflated lungs and interstitial prominence likely related to chronic interstitial change. 3. Mild left pleural effusion. Galdino Bell MD on June 30, 2017 at 9:36 Board Certified Radiologist. This report was verified electronically.
[2017-06-30 09:42] LABS: APTT (PATIENT) 60.2 SEC (24.3-30.1)
--- NOTE | 2017-06-30 12:51 | EKG ---
Date Performed: 06/29/2017 Time Performed: 21:41:08 PTAGE: 76 years EKG: Sinus tachycardia with PVC(s) with PAC(s) and PVC(s) Rightward axis Right bundle branch blo ck Inferior T wave changes are nonspecific Abnormal ECG PREVIOUS TRACING : 06/26/2017 01.59 Compared to previous tracing, PVCs are now present. DOCTOR: Rene Olson Interpretating Date/Time 06/30/2017 12:49:34
--- NOTE | 2017-06-30 13:25 | HHI.PR ---
Subjective Remarks Worsened overnight. On bipap today. Chest x-ray shows increased size of infiltrate. White blood cell count has increased. Objective Vital Signs Date Time Temp Pulse Resp B/P (MAP) Pulse Ox O2 Delivery O2 Flow Rate FiO2 06/30/17 12:00 122 06/30/17 12:00 99.0 122 24 148/69 (95) 93 06/30/17 11:50 94 35 06/30/17 10:00 114 06/30/17 08:27 96 35 06/30/17 08:00 110 06/30/17 08:00 98.6 110 21 132/86 (101) 96 06/30/17 07:00 96 Bi-Pap 35 Simple Mask 06/30/17 06:00 118 06/30/17 04:00 100 06/30/17 04:00 98.4 100 21 121/57 (78) 96 06/30/17 03:56 95 35 06/30/17 02:00 94 35 06/30/17 02:00 112 06/30/17 00:00 110 06/30/17 00:00 97.9 104 21 127/59 (81) 98 06/29/17 22:00 110 06/29/17 20:00 97.7 101 14 130/60 (83) 98 06/29/17 20:00 101 06/29/17 19:56 99 Simple Mask 8.00 06/29/17 19:00 98 Simple Mask 8.00 06/29/17 18:00 100 06/29/17 16:46 98 35 06/29/17 16:00 99 06/29/17 16:00 98.2 99 26 134/73 (93) 99 06/29/17 14:00 99 I/O 06/29/17 06/29/17 06/29/17 06/30/17 06/30/17 06/30/17 07:00 15:00 23:00 07:00 15:00 23:00 Intake Total 811 ml 350 ml 898 ml 830 ml 250 ml Output Total 325 ml 650 ml 325 ml Balance 486 ml 350 ml 248 ml 505 ml 250 ml Intake Oral 40 ml 240 ml 120 ml IV Total 771 ml 350 ml 658 ml 710 ml 250 ml Output Urine Total 325 ml 650 ml 325 ml # Bowel Movements 1 0 0 Result Diagram: 9/17/17 0310 9/17/17 0310 Objective Remarks GENERAL: NAD, A&Ox3 HEAD: Normocephalic. NECK: Supple, trachea midline. No lymphadenopathy. EYES: No scleral icterus. No injection or drainage. CARDIOVASCULAR: Regular rate and rhythm without murmurs, gallops, or rubs. RESPIRATORY: Breath sounds equal bilaterally. No accessory muscle use. Poor excursion bilaterally. Crackles bilaterally. GASTROINTESTINAL: Abdomen soft, non-tender, nondistended. MUSCULOSKELETAL: No cyanosis, or edema. SKIN: Warm and dry. NEURO: No focal neurological deficitis. A/P Problem List: (1) Bilateral pulmonary embolism ICD Code: I26.99 - Other pulmonary embolism without acute cor pulmonale Status: Acute (2) Pneumonia ICD Code: J18.9 - Pneumonia, unspecified organism Status: Acute (3) Acute respiratory failure with hypoxemia ICD Code: J96.01 - Acute respiratory failure with hypoxia (4) Hypoxia ICD Code: R09.02 - Hypoxemia Status: Acute (5) COPD (chronic obstructive pulmonary disease) ICD Code: J44.9 - Chronic obstructive pulmonary disease, unspecified Assessment and Plan Assessment and plan 76-year-old male with COPD history admitted secondary to pneumonia and hypoxia. He also showed evidence of a non-ST elevation [place]. Worsening respiratory status. Continue BiPAP for now, monitor respiratory status. Vancomycin added. Continue cefepime. Continue azithromycin. Following ICU. Acute respiratory failure COPD exacerbation Pneumonia Recent pulmonary embolism Continue supportive oxygenation as needed Continue Venturi mask for now Wean oxygen as tolerated Continue IV Solu-Medrol Continue cefepime and azithromycin Resume Coumadin Follow INR Continue heparin as bridge Severe Sepsis Resolved Elevated troponin with non-ST elevation CA Old right bundle branch block Congestive heart failure Etiology likely correlated with sepsis Latest ejection fraction is 40% Continue aspirin Cardiology following DVT prophylaxis Heparin Coumadin resumed to replace heparin once therapeutic Problem Qualifiers (1) Pneumonia: Qualified Codes: J18.9 - Pneumonia, unspecified organism Clemente Cerna MD Jun 30, 2017 13:25
[2017-06-30] MEDS ORDERED: Vancomycin Consult Pharmacy 1 EA OTHER SCH (13:30)
[2017-06-30] MEDS ORDERED: DEXTROSE 50% IN WATER 50 ML VIAL(D50) IV PRN (14:00)
[2017-06-30] MEDS ORDERED: VANCOMYCIN INJ 1,000 MG in SODIUM CHLOR 0.9% 250 ML INJ 250 ML IV SCH (14:00)
[2017-06-30] MEDS ORDERED: GLUCAGON 1 MG/ML VIAL OTHER PRN (14:00)
[2017-06-30] MEDS: VANCOMYCIN INJ 1,000 MG in SODIUM CHLOR 0.9% 250 ML INJ 250 ML IV SCH (14:07)
[2017-06-30] MEDS: WARFARIN SOD 4 MG TAB PO SCH (16:02)
[2017-06-30] MEDS: INSULIN ASPART SUPPLEMENTAL SCALE SQ SCH ×2 (17:00→20:12)
[2017-06-30] MEDS ORDERED: ALPRAZolam 0.25 MG TAB PO PRN (21:30)
[2017-06-30] MEDS: SODIUM CHLOR 0.9% 1000 ML INJ 1,000 ML IV SCH (21:34)
[2017-07-01] VITALS (21 sets, daily range): BP systolic 77–190; BP diastolic 56–104; PULSE 92–128; RESP 20–39; TEMP 98.4–99; O2SAT 90–96
[2017-07-01] MEDS: DILTIAZEM HCL 30 MG TAB PO SCH ×5 (00:34→23:59)
[2017-07-01] MEDS ORDERED: cloNIDine HCL 0.1 MG TAB PO PRN (00:45)
[2017-07-01] MEDS: VANCOMYCIN INJ 1,000 MG in SODIUM CHLOR 0.9% 250 ML INJ 250 ML IV SCH ×2 (01:34→12:52)
[2017-07-01] MEDS: VASOPRESSIN INJ 40 UNITS in DEXTROSE 5% IN WATER 100ML INJ 98 ML IV SCH ×4 (01:35→23:24)
[2017-07-01] MEDS: RESP: ALBUTEROL 2.5 MG/IPRATROPIUM 0.5 MG NEB (PRN) NEB ×3 (03:19→21:24)
[2017-07-01] MEDS: methylPREDNISolone SOD SUCC 40 MG/1 ML VIAL IV PUSH SCH ×4 (05:29→23:59)
[2017-07-01] MEDS: CEFEPIME INJ 1,000 MG in SODIUM CHLORIDE 0.9% INJ 100 ML IV SCH ×3 (05:29→20:58)
[2017-07-01] MEDS: PANTOPRAZOLE SODIUM 40 MG VIAL IV PUSH SCH (05:30)
[2017-07-01 05:52] LABS: AUTOMATED NEUTROPHIL # 23.6 TH/MM3 (1.8-7.7); BASOPHIL % 0.2 % (0.0-2.0); HEMATOCRIT 28.7 % (39.0-51.0); LYMPH % 1.1 % (9.0-44.0); LYMPHOCYTE # 0.3 TH/MM3 (1.0-4.8); MEAN CELL VOLUME 94.4 FL (80.0-100.0); MEAN CORPUSCULAR HEMOGLOBIN 30.2 PG (27.0-34.0); MONO % 1.4 % (0.0-8.0); NEUT % 97.3 % (16.0-70.0); PLATELET COUNT 437 TH/MM3 (150-450); RED BLOOD COUNT 3.04 MIL/MM3 (4.50-5.90); RED CELL DISTRIBUTION WIDTH 15.7 % (11.6-17.2); WHITE BLOOD COUNT 24.3 TH/MM3 (4.0-11.0)
[2017-07-01 05:57] LABS: HEMO FLAGS AUTO DIFF
[2017-07-01 06:23] LABS: ALKALINE PHOSPHATASE 168 U/L (45-117); ALT (GPT) 39 U/L (12-78); ANION GAP 7 MEQ/L (5-15); AST (GOT) 38 U/L (15-37); BICARBONATE 26.2 MEQ/L (21.0-32.0); BLOOD UREA NITROGEN 38 MG/DL (7-18); CHLORIDE 114 MEQ/L (98-107); GLOMERULAR FILTRATION RATE 110 ML/MIN (>89); POTASSIUM 3.7 MEQ/L (3.5-5.1); SODIUM (NA) 147 MEQ/L (136-145); TOTAL BILIRUBIN ADULT 0.5 MG/DL (0.2-1.0)
[2017-07-01 06:31] LABS: APTT (PATIENT) 74.9 SEC (24.3-30.1)
[2017-07-01 07:29] LABS: BANDS 11 % (0-6); MYELOCYTES 2 % (0-0); NEUTROPHIL # MANUAL DIFF 22.8 TH/MM3 (1.8-7.7); PLATELET ESTIMATE SMEAR NORMAL (NORMAL); PLATELET MORPHOLOGY NORMAL (NORMAL); POLYS (SEG NEUTROPHILS) 81 % (16-70); SCAN/DIFF FINAL DIFF MANUAL; TOXIC GRANULATION 1+ (NORMAL); WBC DIFF SAMPLE 100
[2017-07-01] MEDS: FUROSEMIDE 20 MG/2 ML VIAL IV PUSH SCH (08:39)
[2017-07-01] MEDS: AZITHROMYCIN INJ 500 MG in SODIUM CHLOR 0.9% 250 ML INJ 250 ML IV SCH (08:39)
[2017-07-01] MEDS: ASPIRIN 81 MG CHEW TAB CHEW SCH (08:40)
[2017-07-01] MEDS: DOCUSATE SODIUM 50 MG/SENNA 8.6 MG TAB PO SCH ×2 (08:40→20:59)
--- NOTE | 2017-07-01 08:48 | PD.CARD.PN ---
Subjective Subjective Remarks Increasing dyspnea. No CP, nausea. Mild lightheadedness occasionally. No palpitations. Objective Medications Item Value Date Time Diltiazem HCl 30 mg 07/01/17 0000 (Cardizem) Q6H/PO 07/01/17 0529 Warfarin Sodium 4 mg 06/29/17 1600 (Coumadin) DAILY@16/PO 06/30/17 1602 Heparin Sodium/ 250 ml @ 10.422 mls/hr 06/28/17 0745 Dextrose TITRATE PRN/IV 06/30/17 0332 Furosemide 20 mg 06/27/17 1445 (Lasix Inj) DAILY/IV PUSH 06/30/17 0734 Aspirin 81 mg 06/26/17 0900 (Aspirin Chew) DAILY/CHEW 06/30/17 0735 Vital Signs / I&O Vital Signs Date Time Temp Pulse Resp B/P (MAP) Pulse Ox O2 Delivery O2 Flow Rate FiO2 07/01/17 06:00 118 07/01/17 04:20 95 35 07/01/17 04:00 128 07/01/17 04:00 98.6 128 25 114/89 (97) 95 07/01/17 02:00 120 07/01/17 01:35 110 116/89 07/01/17 00:34 92 35 07/01/17 00:00 98.6 126 39 190/104 (132) 95 07/01/17 00:00 126 06/30/17 22:00 126 06/30/17 21:02 94 35 06/30/17 20:10 95 Simple Mask 9.00 06/30/17 20:05 94 Simple Mask 10.00 06/30/17 20:00 126 06/30/17 20:00 99.0 126 23 131/82 (98) 92 06/30/17 19:00 90 Bi-Pap 35 Simple Mask 06/30/17 18:00 120 06/30/17 16:01 94 35 06/30/17 16:00 99.1 117 20 167/87 (113) 94 06/30/17 16:00 117 06/30/17 14:00 106 06/30/17 12:00 122 06/30/17 12:00 99.0 122 24 148/69 (95) 93 06/30/17 11:50 94 35 06/30/17 10:00 114 I/O 06/30/17 06/30/17 06/30/17 07/01/17 07/01/17 07/01/17 07:00 15:00 23:00 07:00 15:00 23:00 Intake Total 830 ml 350 ml 1156 ml 1265 ml Output Total 325 ml 725 ml 350 ml Balance 505 ml 350 ml 431 ml 915 ml Intake Oral 120 ml 360 ml 260 ml IV Total 710 ml 350 ml 796 ml 1005 ml Output Urine Total 325 ml 725 ml 350 ml # Bowel Movements 0 0 0 Physical Exam GENERAL: Well developed, emaciated. No acute distress. HEENT: Jugular venous pressure is normal. CHEST: Diminished breath sounds diffusely. Diffuse coarse breath sounds. CARDIAC: Tachycardic regular rhythm without S3, S4, or murmur. ABDOMEN: Soft, nontender, no hepatosplenomegaly. Bowel sounds present. EXTREMITIES: No clubbing, cyanosis, or edema. Laboratory Laboratory Tests Test 06/30/17 09:18 07/01/17 04:44 Activated Partial Thromboplast Time 60.2 SEC 74.9 SEC White Blood Count 24.3 TH/MM3 Red Blood Count 3.04 MIL/MM3 Hemoglobin 9.2 GM/DL Hematocrit 28.7 % Mean Corpuscular Volume 94.4 FL Mean Corpuscular Hemoglobin 30.2 PG Mean Corpuscular Hemoglobin Concent 32.0 % Red Cell Distribution Width 15.7 % Platelet Count 437 TH/MM3 Mean Platelet Volume 8.4 FL Neutrophils (%) (Auto) 97.3 % Lymphocytes (%) (Auto) 1.1 % Monocytes (%) (Auto) 1.4 % Eosinophils (%) (Auto) 0.0 % Basophils (%) (Auto) 0.2 % Neutrophils # (Auto) 23.6 TH/MM3 Lymphocytes # (Auto) 0.3 TH/MM3 Monocytes # (Auto) 0.3 TH/MM3 Eosinophils # (Auto) 0.0 TH/MM3 Basophils # (Auto) 0.0 TH/MM3 CBC Comment AUTO DIFF Differential Total Cells Counted 100 Neutrophils % (Manual) 81 % Band Neutrophils % 11 % Lymphocytes % 3 % Monocytes % 3 % Neutrophils # (Manual) 22.8 TH/MM3 Myelocytes 2 % Differential Comment FINAL DIFF MANUAL Toxic Granulation 1+ Platelet Estimate NORMAL Platelet Morphology Comment NORMAL Blood Urea Nitrogen 38 MG/DL Creatinine 0.70 MG/DL Random Glucose 184 MG/DL Total Protein 5.5 GM/DL Albumin 1.8 GM/DL Calcium Level 8.5 MG/DL Alkaline Phosphatase 168 U/L Aspartate Amino Transf (AST/SGOT) 38 U/L Alanine Aminotransferase (ALT/SGPT) 39 U/L Total Bilirubin 0.5 MG/DL Sodium Level 147 MEQ/L Potassium Level 3.7 MEQ/L Chloride Level 114 MEQ/L Carbon Dioxide Level 26.2 MEQ/L Anion Gap 7 MEQ/L Estimat Glomerular Filtration Rate 110 ML/MIN Assessment and Plan Problem List: (1) Elevated troponin ICD Codes: R74.8 - Abnormal levels of other serum enzymes Status: Acute Plan: Cardiac status overall stable. No definite angina. No definite CHF. Echo does suggest region of apical akinesis suggestive of prior infarction in this region. EF ~40%. Cardizem apparently started last night for tachycardia. Rec continue daily aspirin, overall conservative cardiac therapy, evaluation would recommend stopping Cardizem unless being used for hypertension would recommend stopping furosemide will f/u as needed (2) Bilateral pulmonary embolism ICD Codes: I26.99 - Other pulmonary embolism without acute cor pulmonale Status: Acute Plan: Continue anticoagulation therapy, warfarin. Code Status full code Discussed Condition With patient Rene Olson MD Jul 01, 2017 08:48
[2017-07-01] MEDS: INSULIN ASPART SUPPLEMENTAL SCALE SQ SCH ×4 (09:10→20:59)
[2017-07-01] MEDS: SODIUM CHLORIDE 0.9% FLUSH 10 ML FLUSH IV FLUSH SCH ×2 (09:10→20:59)
[2017-07-01] MEDS: HEPARIN-D5W 25,000 U/250 ML 250 ML IV PRN (10:22)
--- NOTE | 2017-07-01 12:20 | HHI.PR ---
Subjective Remarks No significant improvement in respiratory status. He temporary tolerated the venturi mask today, but has been returned to BiPAP. He may need long-term care with BiPAP. Objective Vital Signs Date Time Temp Pulse Resp B/P (MAP) Pulse Ox O2 Delivery O2 Flow Rate FiO2 07/01/17 10:00 93 07/01/17 08:50 90 Venturi Mask 40 07/01/17 08:00 99.0 108 23 97/71 (80) 90 07/01/17 08:00 90 Venturi Mask 50 07/01/17 08:00 114 07/01/17 07:00 90 Bi-Pap 35 Simple Mask 07/01/17 06:00 118 07/01/17 04:20 95 35 07/01/17 04:00 128 07/01/17 04:00 98.6 128 25 114/89 (97) 95 07/01/17 02:00 120 07/01/17 01:35 110 116/89 07/01/17 00:34 92 35 07/01/17 00:00 98.6 126 39 190/104 (132) 95 07/01/17 00:00 126 06/30/17 22:00 126 06/30/17 21:02 94 35 06/30/17 20:10 95 Simple Mask 9.00 06/30/17 20:05 94 Simple Mask 10.00 06/30/17 20:00 126 06/30/17 20:00 99.0 126 23 131/82 (98) 92 06/30/17 19:00 90 Bi-Pap 35 Simple Mask 06/30/17 18:00 120 06/30/17 16:01 94 35 06/30/17 16:00 99.1 117 20 167/87 (113) 94 06/30/17 16:00 117 06/30/17 14:00 106 I/O 06/30/17 06/30/17 06/30/17 07/01/17 07/01/17 07/01/17 07:00 15:00 23:00 07:00 15:00 23:00 Intake Total 830 ml 350 ml 1156 ml 1265 ml Output Total 325 ml 725 ml 350 ml Balance 505 ml 350 ml 431 ml 915 ml Intake Oral 120 ml 360 ml 260 ml IV Total 710 ml 350 ml 796 ml 1005 ml Output Urine Total 325 ml 725 ml 350 ml # Bowel Movements 0 0 0 Result Diagram: 07/01/174 07/01/174 Objective Remarks GENERAL: NAD, A&Ox3 HEAD: Normocephalic. NECK: Supple, trachea midline. No lymphadenopathy. EYES: No scleral icterus. No injection or drainage. CARDIOVASCULAR: Regular rate and rhythm without murmurs, gallops, or rubs. RESPIRATORY: Breath sounds equal bilaterally. No accessory muscle use. Poor excursion bilaterally. Crackles bilaterally. GASTROINTESTINAL: Abdomen soft, non-tender, nondistended. MUSCULOSKELETAL: No cyanosis, or edema. SKIN: Warm and dry. NEURO: No focal neurological deficitis. A/P Problem List: (1) Bilateral pulmonary embolism ICD Code: I26.99 - Other pulmonary embolism without acute cor pulmonale Status: Acute (2) Pneumonia ICD Code: J18.9 - Pneumonia, unspecified organism Status: Acute (3) Acute respiratory failure with hypoxemia ICD Code: J96.01 - Acute respiratory failure with hypoxia (4) Hypoxia ICD Code: R09.02 - Hypoxemia Status: Acute (5) COPD (chronic obstructive pulmonary disease) ICD Code: J44.9 - Chronic obstructive pulmonary disease, unspecified Assessment and Plan Assessment and plan 76-year-old male with COPD history admitted secondary to pneumonia and hypoxia. He also showed evidence of a non-ST elevation [place]. No improvement in respiratory status. Continue BiPAP for now, monitor respiratory status. Trials of weaning from BiPAP have not been successful yet. Continue vancomycin. Continue cefepime. Continue azithromycin. Following ICU. Considerations for long-term care with BiPAP have been started. Acute respiratory failure COPD exacerbation Pneumonia Recent pulmonary embolism Continue supportive oxygenation as needed Continue Venturi mask for now Wean oxygen as tolerated Continue IV Solu-Medrol Continue cefepime and azithromycin Resume Coumadin Follow INR Continue heparin as bridge Severe Sepsis Resolved Elevated troponin with non-ST elevation [place] Old right bundle branch block Congestive heart failure Etiology likely correlated with sepsis Latest ejection fraction is 40% Continue aspirin Cardiology following DVT prophylaxis Heparin Coumadin resumed to replace heparin once therapeutic Discharge planning Patient may need long-term care with BiPAP if his clinical status does not improve Problem Qualifiers (1) Pneumonia: Qualified Codes: J18.9 - Pneumonia, unspecified organism Clemente Cerna MD Jul 01, 2017 12:20
[2017-07-01] MEDS: WARFARIN SOD 4 MG TAB PO SCH (15:57)
[2017-07-01] MEDS ORDERED: FUROSEMIDE 20 MG/2 ML VIAL IV PUSH ONE (19:30)
[2017-07-01] MEDS: SODIUM CHLOR 0.9% 1000 ML INJ 1,000 ML IV SCH (20:59)
[2017-07-02] VITALS (18 sets, daily range): BP systolic 91–150; BP diastolic 54–79; PULSE 63–111; RESP 16–32; TEMP 98.7–99.1; O2SAT 91–100
[2017-07-02] MEDS: RESP: ALBUTEROL 2.5 MG/IPRATROPIUM 0.5 MG NEB (PRN) NEB (00:33)
[2017-07-02] MEDS ORDERED: PHARMACY ORDERED LAB ONE ×2 (01:45→03:45)
[2017-07-02] MEDS: VANCOMYCIN INJ 1,000 MG in SODIUM CHLOR 0.9% 250 ML INJ 250 ML IV SCH ×2 (02:00→13:30)
[2017-07-02 05:26] LABS: AUTOMATED NEUTROPHIL # 33.4 TH/MM3 (1.8-7.7); BASOPHIL # 0.1 TH/MM3 (0-0.2); BASOPHIL % 0.3 % (0.0-2.0); HEMATOCRIT 29.6 % (39.0-51.0); LYMPH % 0.8 % (9.0-44.0); LYMPHOCYTE # 0.3 TH/MM3 (1.0-4.8); MEAN CELL VOLUME 94.6 FL (80.0-100.0); MEAN CORPUSCULAR HEMOGLOBIN 29.5 PG (27.0-34.0); MEAN CORPUSCULAR HGB CONC 31.2 % (32.0-36.0); MONO % 0.4 % (0.0-8.0); NEUT % 98.5 % (16.0-70.0); PLATELET COUNT 450 TH/MM3 (150-450); RED BLOOD COUNT 3.13 MIL/MM3 (4.50-5.90); RED CELL DISTRIBUTION WIDTH 16.1 % (11.6-17.2); WHITE BLOOD COUNT 33.9 TH/MM3 (4.0-11.0)
[2017-07-02 05:34] LABS: HEMO FLAGS AUTO DIFF
[2017-07-02] MEDS: methylPREDNISolone SOD SUCC 40 MG/1 ML VIAL IV PUSH SCH ×3 (05:48→17:58)
[2017-07-02] MEDS: PANTOPRAZOLE SODIUM 40 MG VIAL IV PUSH SCH (05:49)
[2017-07-02] MEDS: DILTIAZEM HCL 30 MG TAB PO SCH ×4 (05:49→17:58)
[2017-07-02] MEDS: CEFEPIME INJ 1,000 MG in SODIUM CHLORIDE 0.9% INJ 100 ML IV SCH ×2 (05:49→13:30)
--- NOTE | 2017-07-02 07:05 | MB ---
cc: FILOMENA CEBALLOS DATE OF CONSULTATION 07/01/[address] Anastacio Jiménez REASON FOR CONSULTATION Pulmonary embolism, lung infiltrate. HISTORY OF PRESENT ILLNESS Ms. Banks is a 76-year-old frail elderly male who was brought from [facility]. He has a history of severe COPD. He was in this hospital in May and discharged to rehab. When he was brought back to the hospital, he was very hypoxic. He was started on BiPap with some improvement. The patient was also noted to have increase in troponin and cardiology is following. Currently he is on Ventimask. He has moderate shortness of breath, mild congestion, not able to bring up any phlegm. PAST MEDICAL HISTORY His past medical history is significant for a history of: 1. Recent bilateral pulmonary embolism 2. COPD 3. Pneumonia MEDICATIONS He is currently takin. Klonopin 0.1 mg p.r.n. 2. Coumadin 5 mg a 3. Heparin IV 4. Vasopressin 5. Lasix 20 mg 6. Solu-Medrol 40 mg q.6 h. 7. Zithromax 500 mg a day. 8. Albuterol/Atrovent nebulizer treatments 9. Cefepime 1 gram q. 8-hour 10. Protonix 40 mg a day ALLERGIES NO KNOWN DRUG ALLERGIES. SOCIAL HISTORY, FAMILY HISTORY Can not assess. PHYSICAL EXAM Exam shows a frail, elderly male in mild to moderate short of breath. Currently, he is on a Ventimask. VITAL SIGNS: His blood pressure 126/70, heart rate 94, respirations 30, temperature 98.4. HEAD, EYES, EARS, NOSE, AND THROAT: Pupils are equal and reactive to light. NECK: Supple. JVP not raised. LUNGS: Bilateral coarse crackles. CARDIOVASCULAR: S1 and S2. ABDOMEN: Benign. EXTREMITIES: No edema. IMPRESSION 1. Respiratory insufficiency. 2. Bilateral coarse crackles and worsening infiltrate in the left lung likely from pneumonia. 3. Increased troponin 4. COPD 5. Bilateral pulmonary embolism PLAN We will continue antibiotic. He is on Ventimask. We will use C-PAP at nighttime and use NG suction. Also give another dose of Lasix 20 mg IV. Check his cultures. Continue IV heparin. He was started on Coumadin. Further treatment will depend upon the course in the hospital. Thank you, Dr. Jiménez, for this consultation. MD EMMA Knox /7:20 PM /6:50 AM NICOLE
[2017-07-02 07:41] LABS: INTERNATIONAL NORMALIZED RATIO 5.7 RATIO; PROTHROMBIN TIME - PATIENT 67.5 SEC (9.8-11.6)
[2017-07-02 07:52] LABS: APTT (PATIENT) 131.2 SEC (24.3-30.1)
[2017-07-02] MEDS: AZITHROMYCIN INJ 500 MG in SODIUM CHLOR 0.9% 250 ML INJ 250 ML IV SCH (07:58)
[2017-07-02] MEDS: SODIUM CHLORIDE 0.9% FLUSH 10 ML FLUSH IV FLUSH SCH (07:59)
[2017-07-02] MEDS: ASPIRIN 81 MG CHEW TAB CHEW SCH (07:59)
[2017-07-02] MEDS: FUROSEMIDE 20 MG/2 ML VIAL IV PUSH SCH (07:59)
[2017-07-02] MEDS: INSULIN ASPART SUPPLEMENTAL SCALE SQ SCH ×3 (08:00→17:00)
[2017-07-02 08:05] LABS: BANDS 8 % (0-6); CORRECTED NUCLEATED RBC 2 /100 WBC (0-0); METAMYELOCYTES 1 % (0-1); MYELOCYTES 1 % (0-0); NEUTROPHIL # MANUAL DIFF 33.9 TH/MM3 (1.8-7.7); PLATELET ESTIMATE SMEAR NORMAL (NORMAL); POLYS (SEG NEUTROPHILS) 90 % (16-70); WBC DIFF SAMPLE 100
[2017-07-02 08:06] LABS: PLATELET MORPHOLOGY NORMAL (NORMAL); SCAN/DIFF FINAL DIFF MANUAL; TOXIC VACUOLATION PRESENT (NONE SEEN)
[2017-07-02 08:40] LABS: INTERNATIONAL NORMALIZED RATIO 5.3 RATIO; PROTHROMBIN TIME - PATIENT 63.4 SEC (9.8-11.6)
[2017-07-02 08:44] LABS: APTT (PATIENT) 98.4 SEC (24.3-30.1)
[2017-07-02] MEDS: DOCUSATE SODIUM 50 MG/SENNA 8.6 MG TAB PO SCH (09:00)
[2017-07-02 10:40] LABS: ALKALINE PHOSPHATASE 152 U/L (45-117); ALT (GPT) 480 U/L (12-78); ANION GAP 9 MEQ/L (5-15); AST (GOT) 508 U/L (15-37); BICARBONATE 25.3 MEQ/L (21.0-32.0); BLOOD UREA NITROGEN 46 MG/DL (7-18); CHLORIDE 116 MEQ/L (98-107); GLOMERULAR FILTRATION RATE 71 ML/MIN (>89); SODIUM (NA) 150 MEQ/L (136-145); TOTAL BILIRUBIN ADULT 0.4 MG/DL (0.2-1.0)
--- NOTE | 2017-07-02 11:09 | HHI.PR ---
Subjective Remarks Patient not improving. Currently he is not tolerating weans to Venturi mask. BiPAP continued. Objective Vital Signs Date Time Temp Pulse Resp B/P (MAP) Pulse Ox O2 Delivery O2 Flow Rate FiO2 07/02/17 09:30 91 Venturi Mask 6.00 50 07/02/17 08:08 97 45 07/02/17 08:00 98.9 99 24 150/79 (102) 97 07/02/17 08:00 99 07/02/17 07:00 97 Bi-Pap 35 07/02/17 06:00 100 07/02/17 04:04 95 45 07/02/17 04:00 100 07/02/17 04:00 99.0 100 28 128/76 (93) 94 07/02/17 02:00 96 07/02/17 00:40 100 BiPAP 45 07/02/17 00:33 100 45 07/02/17 00:00 105 07/02/17 00:00 99.1 105 32 130/72 (91) 94 07/01/17 22:00 110 07/01/17 21:22 94 45 07/01/17 20:00 110 07/01/17 20:00 99.0 110 32 137/85 (102) 94 07/01/17 19:00 92 Bi-Pap 34 07/01/17 18:15 91 Venturi Mask 50 07/01/17 18:00 110 07/01/17 16:39 96 45 07/01/17 16:00 98.4 94 28 144/75 (98) 94 07/01/17 16:00 107 07/01/17 15:00 93 Bi-Pap 45 Simple Mask 07/01/17 14:00 92 07/01/17 12:00 93 07/01/17 12:00 99.0 97 20 132/75 (94) 90 07/01/17 11:53 91 45 I/O 07/01/17 07/01/17 07/01/17 07/02/17 07/02/17 07/02/17 07:00 15:00 23:00 07:00 15:00 23:00 Intake Total 1265 ml 1991 ml 707 ml Output Total 350 ml 200 ml 600 ml Balance 915 ml 1791 ml 107 ml Intake Oral 260 ml 120 ml IV Total 1005 ml 1871 ml 707 ml Output Urine Total 350 ml 200 ml 600 ml # Bowel Movements 0 0 Result Diagram: 07/02/17 0500 07/02/17 0140 Objective Remarks GENERAL: NAD, A&Ox0 HEAD: Normocephalic. NECK: Supple, trachea midline. No lymphadenopathy. EYES: No scleral icterus. No injection or drainage. CARDIOVASCULAR: Regular rate and rhythm without murmurs, gallops, or rubs. RESPIRATORY: Breath sounds equal bilaterally. No accessory muscle use. Poor excursion bilaterally. Crackles bilaterally. GASTROINTESTINAL: Abdomen soft, non-tender, nondistended. MUSCULOSKELETAL: No cyanosis, or edema. SKIN: Warm and dry. NEURO: No focal neurological deficitis. A/P Problem List: (1) Bilateral pulmonary embolism ICD Code: I26.99 - Other pulmonary embolism without acute cor pulmonale Status: Acute (2) Pneumonia ICD Code: J18.9 - Pneumonia, unspecified organism Status: Acute (3) Acute respiratory failure with hypoxemia ICD Code: J96.01 - Acute respiratory failure with hypoxia (4) Hypoxia ICD Code: R09.02 - Hypoxemia Status: Acute (5) COPD (chronic obstructive pulmonary disease) ICD Code: J44.9 - Chronic obstructive pulmonary disease, unspecified Assessment and Plan Assessment and plan 76-year-old male with COPD history admitted secondary to pneumonia and hypoxia. He also showed evidence of a non-ST elevation IA. No improvement in respiratory status. Continue BiPAP for now, monitor respiratory status. Trials of weaning from BiPAP have not been successful yet. Continue vancomycin. Continue cefepime. Continue azithromycin. Continue monitoring in ICU. Pulmonology consulted. palliative care consulted. Acute respiratory failure COPD exacerbation Pneumonia Recent pulmonary embolism Continue supportive oxygenation as needed Continue Venturi mask for now Wean oxygen as tolerated Continue IV Solu-Medrol Continue cefepime and azithromycin Resume Coumadin Follow INR Continue heparin as bridge Severe Sepsis Resolved Elevated troponin with non-ST elevation IA Old right bundle branch block Congestive heart failure Etiology likely correlated with sepsis Latest ejection fraction is 40% Continue aspirin Cardiology following DVT prophylaxis Heparin Coumadin resumed to replace heparin once therapeutic Discharge planning Patient may need long-term care with BiPAP if his clinical status does not improve Problem Qualifiers (1) Pneumonia: Qualified Codes: J18.9 - Pneumonia, unspecified organism Clemente Cerna MD Jul 02, 2017 11:09
[2017-07-02 12:01] LABS: BLOOD GAS CARBOXYHEMOGLOBIN 1.1 % (0-4); BLOOD GAS HCO3 24 mmol/L (22-26); BLOOD GAS METHEMOGLOBIN 0.8 % (0-2); BLOOD GAS O2 HGB SATURATION 92 % (90-100); BLOOD GAS OXYGEN CONTENT 12.6 Vol % (12.0-20.0); BLOOD GAS PCO2 42 mmHg (38-42); BLOOD GAS PO2 71 mmHg (61-120); BLOOD GAS TOTAL HGB 9.7 G/DL (12.0-16.0); CRITICAL VALUE NO; OXYGEN DEVICE BIPAP; TEMP CORR TO 98.6
[2017-07-02 12:02] LABS: DRAW SITE RT RADIAL; FIO2 45 %; NUMBER OF ARTERIAL PUNCTURES 1; ULNAR PULSE PRESENT
[2017-07-02 12:03] LABS: STAT YES
[2017-07-02] MEDS ORDERED: ROCURONIUM INJ 50 MG/5 ML VIAL IV ONE (13:45)
[2017-07-02] MEDS ORDERED: MIDAZOLAM HCL 5 MG/ML VIAL (1 ML) IV PUSH ONE (13:45)
--- NOTE | 2017-07-02 13:49 | HHI.CCPN ---
Subjective Remarks/Hospital Course 06/26: 76-year-old male with a medical history significant for emphysema and recent diagnosis of PE in May 2017 for which she was admitted at [facility] and was [facility] on Coumadin which she has been taking. Patient presented with a cough going on for the last week with progressive shortness of breath. Per documentation EMS stated he had an elevated temperature on their arrival to the nursing facility and the nurses that were rounding found him to be acutely short of breath with an oxygen saturation in the low 80s. He was placed on a nonrebreather facemask and brought to the hospital at [place]. He was evaluated in the ER where his chest x-ray revealed new infiltrates involving left lung and he was started on empiric antibiotics/ steroids and admitted by the hospitalist service to the floor however his respiratory status declined and he was initiated on BiPAP and transferred to the ICU. She did have a elevated troponin of 0.15 noted in the ER and was given aspirin. Critical care was consulted following patient's transfer to the ICU due to worsening respiratory failure requiring BiPAP and possible need for intubation. I evaluated the patient immediately on being notified by nursing staff and adjusted BiPAP, ordered a stat ABG and bronchodilator treatments. Patient was also looking anxious on BiPAP using accessory muscles of respiration hence a Precedex drip was ordered. History was obtained by reviewing records and discussion with patient and nursing staff. 06/27: On BiPAP overnight. Started on Levophed and vasopressin for hypotension yesterday. This morning he is drowsy though easily arousable on BiPAP with full facemask. 06/28: Off BiPAP since yesterday, tolerating Ventimask. Awake and alert, following commands. Titrated off Levophed. On low-dose vasopressin. Being started on heparin GTT as INR below 2 after administering vitamin K on 06/27 for INR greater than 8. 07/02: emergent reconsult for respiratory decompensation. patient on BiPAP, but clinically declining, was on NC this AM, now tachypneic with RR in the 40s, more labored, patient complains of tiring out. ABG is compensated, but visibly this cachectic elderly male in severe distress and complains of getting tired. I had a brief conversation about goals of care with him. he is oriented x 3 and appears to have capacity to make his own healthcare decisions. he states he wants aggressive care including a breathing tube if necessary. proceeded with intubation (see separate procedure note for details). Objective Vital Signs Date Time Temp Pulse Resp B/P (MAP) Pulse Ox O2 Delivery O2 Flow Rate FiO2 07/02/17 12:57 98 45 07/02/17 10:00 99 07/02/17 09:30 Venturi Mask 6.00 07/02/17 08:00 98.9 24 150/79 (102) Intake and Output 07/02/17 07/02/17 07/03/17 08:00 16:00 00:00 Intake Total 707 ml 276 ml Output Total 600 ml Balance 107 ml 276 ml Result Diagram: 07/02/17 0500 07/02/17 0140 Other Results Laboratory Tests Test 07/02/17 11:45 Blood Gas Puncture Site RT RADIAL Blood Gas Patient Temperature 98.6 Blood Gas HCO3 24 mmol/L (22-26) Blood Gas Base Excess 0.0 mmol/L (-2-2) Blood Gas Oxygen Saturation 92 % (90-100) Arterial Blood pH 7.38 (7.380-7.420) Arterial Blood Partial Pressure CO2 42 mmHg (38-42) Arterial Blood Partial Pressure O2 71 mmHg (61-120) Arterial Blood Oxygen Content 12.6 Vol % (12.0-20.0) Arterial Blood Carboxyhemoglobin 1.1 % (0-4) Arterial Blood Methemoglobin 0.8 % (0-2) Blood Gas Hemoglobin 9.7 G/DL (12.0-16.0) Oxygen Delivery Device BIPAP Blood Gas Ventilator Setting SEE COMMENT Blood Gas Inspired Oxygen 45 % Imaging Last Impressions Chest X-Ray 06/26/17 0030 Signed Impressions: Service Date/Time: Monday, June 26, 2017 01:00 - CONCLUSION: 1. Multifocal airspace consolidation has developed on the left since prior exam most characteristic of bronchopneumonia or aspiration. Severe emphysema. Alfredo Kim MD Objective Remarks GENERAL: elderly cachectic male in severe respiratory distress SKIN: warm/dry. HEAD: Atraumatic. Normocephalic. EYES: Pupils equal and round. No scleral icterus. ENT: Mucous membranes pink and moist. NECK: Trachea midline. No JVD. BiPAP in place. CARDIOVASCULAR: Regular rate and rhythm. sinus by tele. RESPIRATORY: BiPAP, 45% fio2. tachypneic, RR 40s. distress. using accessory muscles. GASTROINTESTINAL: Abdomen soft, non-tender, nondistended. MUSCULOSKELETAL: No obvious deformities. No clubbing. No cyanosis. No edema. NEUROLOGICAL: awake, follows commands. CAM -. RASS 0. A/P Assessment and Plan Assessment: clinically declining, likely worsening COPD exacerbation. wbc elevation could be steroids or worsening pna. will re-culture. LTAC appropriate given his issues are all pulmonary in origin. critically ill today and declining end-organ function. 76-year-old male with: Acute hypoxic and hypercarbic respiratory failure - worsening COPD exacerbation Severe Sepsis Pneumonia Acute kidney injury Recent pulmonary embolism Elevated troponin with non-ST elevation MT Old right bundle branch block Plan: Neuro: propofol for RASS goal -2. Cardiovascular: IV hydration, Started on aspirin for elevated troponin. Consulted cardiology. 2-D echo with LVEF 40% and apical hypokinesis. Pulmonary: intubated for worsening hypoxia and respiratory distress. DuoNeb's every 4 hourly and every 2 hourly when necessary. IV Solu-Medrol. GI/liver: place NGT and start tube feeds. Renal/: IV hydration, strict intake output, monitor and replete electro lites , follow BUN/creatinine. Zepeda catheterization for accurate intake output in this critically ill patient with severe sepsis/pneumonia. yasmin likely secondary to sepsis. ID: Urine for strep pneumo and Legionella antigen negative. Nasal aspirate for influenza A and B pending. Empiric antibiotic coverage with IV cefepime. Added is azithromycin for atypical coverage. will need to add vancomycin and flagyl at this point to cover HCAP and aspiration. reculture. Endocrine: SSI for glycemic control. Heme: On Coumadin for full anticoagulation at home- currently on hold as INR supratherapeutic. Prophylaxis: PPI. Coumadin for full anticoagulation for recent PE - supratherapeutic. transfer to LTAC If bed available. Critical Care time: 40 minutes, exclusive of separately billable procedures. Chris Yi MD Jul 02, 2017 13:49
[2017-07-02] MEDS ORDERED: metroNIDAZOLE 500 MG INJ 100 ML IV SCH (14:00)
[2017-07-02] MEDS: PROPOFOL 1000 MG/100 ML INJ 100 ML IV SCH ×2 (14:01→15:39)
--- NOTE | 2017-07-02 14:02 | PD.PROCEDR ---
Procedure Note Procedure Endotracheal Intubation Diagnosis: acute pneumonia Indications: decompensating acute hypoxic and hypercarbic respiratory failure Consent: verbal consent was obtained from the patient Anesthesia: versed 10mg iv, rocuronium 100mg iv. Description of the Procedure: The patient was positioned in the sniffing position. Pre-oxygenation was performed using a 100% fio2 BiPAP. Anesthesia was induced via rapid sequence. A Cerna #2 was used for laryngoscopy and a Grade I view was obtained. A 8.5 cuffed endotracheal tube was inserted atraumatically through the vocal cords. Confirmation of correct endotracheal tube placement was made by equal and bilateral breath sounds and colorimetric CO2 detection. The endotracheal tube was secured at 23 cm at the teeth. There were no immediate complications noted. The patient remained hemodynamically stable throughout the procedure. A chest x-ray has been ordered. I personally performed the procedure. Chris Yi MD Jul 02, 2017 14:02
--- NOTE | 2017-07-02 14:02 | PD.CONS ---
Consult Service Palliative Care Consult Requested By Dr Keon Cerna Primary Care Physician No Primary Care Physician Reason for Consultation a. To assist with evaluation and management of symptoms including: b. To assist medical decision maker(s) with: better understanding of current medical conditions; weighing benefits/burdens of medical treatment options; making medical treatment decisions. HPI History of Present Illness This 76-year-old patient presented to the ED on 06/26/17, with complaints of shortness of breath. Recent diagnoses a few weeks prior with bilateral pulmonary emboli, was discharged 06/08 on Coumadin. Ordered cough for one week prior, worsening. Denied pain. EMS reports elevated temperature. EMS reported nurse rounding of facility found him acutely short of breath and with low O2 sat in the 80s, patient reported feeling better with nonrebreather. * EKG= sinus tachycardia. CXR= Multifocal airspace consolidation has developed on the left since prior exam most characteristic of bronchopneumonia or aspiration. Severe emphysema. Patient received DuoNeb in the ED, started on cefepime, Levaquin, Flagyl. WBC 7. Troponin 0.15. BNP 1988. Placed on BiPAP. He was admitted for further evaluation and management. * Started on aspirin for elevated troponin, cardiology consulted. Blood, urine cultures pending. Azithromycin added. Critical care notes discussion with patient regarding possible intubation and/or CPR, patient reported to wish to continue aggressive care at that time. Patient was some anxiety on BiPAP, was started on Precedex. * Cardiology: Does not feel slightly elevated troponin is due to ACS, likely more due to demand ischemia, has down trended since time of diagnoses of pulmonary emboli. No acute ST changes on EKG. Patient denying chest pain. Cardiology orders repeat echo, follow cardiac enzymes. Would recommend conservative cardiac evaluation and therapy given comorbid conditions. * 06/28 requiring some pressors Levophed, low-dose vasopressin. Started on heparin drip for INR less than 2. On and off of BiPAP, currently tolerating Ventimask. * 06/29 slight improvement still requiring facemask O2. Critical Care signed off to hospitalist medical provider. * 07/01 cardiology notes no definite CHF. Echo suggestive of region of apical akinesis suggestive of prior infarction in that region. EF approximately 40 present. Required overnight for tachycardia. Cardiology recommends continue daily aspirin, can conservative cardiac therapy, discontinue Cardizem unless being used for hypertension. Recommends DC Lasix. Patient still requiring on and off of BiPAP; may require long-term assistance with BiPAP. * 07/01 pulmonology consulted-patient with worsening infiltrate left lung, likely pneumonia. Recommends continue antibiotics, BiPAP at night * 07/02 patient still with no respiratory improvement continues to require BiPAP. Palliative care consulted to assist with clarification of goals of treatment. d/w dr Yi prior to seeing pt, CONSULT CANCELED, REQUESTED NOT TO SEE PT . Function/Cognitive Trajectory Independent with activities and self-care prior to most recent admission for pulmonary embolism. Following that admission was discharged to [facility] for rehabilitation. Past Family Social History Coded Allergies: No Known Allergies (Unverified , 06/04/17) Past Medical History COPD recent pulmonary embolism . Past Surgical History Patient denies any surgical history Reported Medications Symbicort Inh (Budesonide/Formoterol Fumarate) 160-4.5 Mcg/Act Aero 1 Puff INH Q12HR Coumadin (Warfarin) 5 Mg Tab 5 Mg PO DAILY@1600 30 Days Albuterol Neb (Albuterol Sulfate) 2.5 Mg/3 Ml Neb 2.5 Mg INH Q2HR NEB PRN 30 Days Duoneb (Ipratropium-Albuterol Neb) 0.5-2.5 Mg/3 Ml Neb 1 Ampule INH Q6HR NEB 30 Days Magnesium Oxide 500 Mg Tab 500 Mg PO BID Aspirin 81 Mg Chew 81 Mg CHEW DAILY . Current Medications Medications (Trade) Dose Ordered Sig/Mata Route Start Time Stop Time Status Last Admin (NS Flush) 2 ml UNSCH PRN IV FLUSH 06/26/17 02:30 (NS Flush) 2 ml BID IV FLUSH 06/26/17 09:00 07/01/17 20:59 (Narcan Inj) 0.4 mg UNSCH PRN IV 06/26/17 02:30 (Celina-Colace) 1 tab BID PO 06/26/17 09:00 07/01/17 08:40 (Milk Of Magnesia Liq) 30 ml Q12H PRN PO 06/26/17 02:30 (Senokot) 17.2 mg Q12H PRN PO 06/26/17 02:30 (Dulcolax Supp) 10 mg DAILY PRN RECTAL 06/26/17 02:30 (Lactulose Liq) 30 ml DAILY PRN PO 06/26/17 02:30 Cefepime HCl 1000 mg/Sodium Chloride 100 ml @ 200 mls/hr Q8H IV 06/26/17 06:00 07/02/17 13:30 (SoluMEDROL INJ) 40 mg Q6HR IV PUSH 06/26/17 12:00 07/02/17 13:16 (Aspirin Chew) 81 mg DAILY CHEW 06/26/17 09:00 07/01/17 08:40 (Protonix Inj) 40 mg Q24H IV PUSH 06/26/17 06:00 07/02/17 05:49 (Duoneb Neb) 1 ampule Q2HR NEB PRN NEB 06/26/17 07:45 07/02/17 00:33 Azithromycin 500 mg/Sodium Chloride 250 ml @ 250 mls/hr Q24H IV 06/26/17 08:00 07/02/17 07:58 Sodium Chloride 1,000 ml @ 50 mls/hr Q20H IV 06/26/17 07:45 07/01/17 20:59 Vasopressin 40 units/Dextrose 100 ml @ 4.5 mls/hr [id number] IV 06/26/17 12:17 06/27/17 10:21 (Lasix Inj) 20 mg DAILY IV PUSH 06/27/17 14:45 07/02/17 07:59 (Coumadin) 4 mg DAILY@16 PO 06/29/17 16:00 Future Hold 07/01/17 15:57 Pharmacy Profile Note 0 ml @ 0 mls/hr UNSCH OTHER 06/30/17 13:30 (D50w (Vial) Inj) 50 ml UNSCH PRN IV 06/30/17 14:00 (Glucagon Inj) 1 mg UNSCH PRN OTHER 06/30/17 14:00 (NovoLOG SUPPLEMENTAL SCALE) 1 ACHS SLIDING SCALE SQ 06/30/17 17:00 07/01/17 09:10 Vancomycin HCl 1000 mg/Sodium Chloride 250 ml @ 250 mls/hr Q12H IV 06/30/17 14:00 07/02/17 13:30 (Xanax) 0.25 mg TID PRN PO 06/30/17 21:30 06/30/17 21:33 (Catapres) 0.1 mg Q6H PRN PO 07/01/17 00:45 07/01/17 00:34 (Cardizem) 30 mg Q6H PO 07/01/17 00:00 07/02/17 13:19 Miscellaneous Information SPECIFIC LAB TO BE DRAWN:VANCOMYCIN TROUGH DATE TO... ONCE ONCE .XX 07/04/17 01:45 07/04/17 01:46 Family History No family history cardiac disease Substance Use Tobacco: Former heavy smoker, now one half PPD Alcohol: None Prescription med abuse: None Illicits: None . Psychosocial History Retired, [employer] . No local primary care provider. Lived locally with a friend and his spouse prior to most recent admission. Physical Exam Vital Signs Date Time Temp Pulse Resp B/P (MAP) Pulse Ox O2 Delivery O2 Flow Rate FiO2 07/02/17 12:57 98 45 07/02/17 10:00 99 07/02/17 09:30 91 Venturi Mask 6.00 50 07/02/17 08:08 97 45 07/02/17 08:00 98.9 99 24 150/79 (102) 97 07/02/17 08:00 99 07/02/17 07:00 97 Bi-Pap 35 07/02/17 06:00 100 07/02/17 04:04 95 45 07/02/17 04:00 100 07/02/17 04:00 99.0 100 28 128/76 (93) 94 07/02/17 02:00 96 07/02/17 00:40 100 BiPAP 45 07/02/17 00:33 100 45 07/02/17 00:00 105 07/02/17 00:00 99.1 105 32 130/72 (91) 94 07/01/17 22:00 110 07/01/17 21:22 94 45 07/01/17 20:00 110 07/01/17 20:00 99.0 110 32 137/85 (102) 94 07/01/17 19:00 92 Bi-Pap 34 07/01/17 18:15 91 Venturi Mask 50 07/01/17 18:00 110 07/01/17 16:39 96 45 07/01/17 16:00 98.4 94 28 144/75 (98) 94 07/01/17 16:00 107 07/01/17 15:00 93 Bi-Pap 45 Simple Mask 07/01/17 14:00 92 07/02/17 07/03/17 19:00 07:00 Intake Total 276 ml Balance 276 ml IV Total 276 ml Exam d/w dr Yi prior to seeing pt, CONSULT CANCELED, REQUESTED NOT TO SEE PT CONSTITUTIONAL/GENERAL: This is an adequately nourished patient, in no apparent distress. TUBES/LINES/DRAINS: SKIN: No jaundice, rashes, or lesions. Ecchymoses on upper extremities. No wounds seen anteriorly. Skin temperature appropriate. Not diaphoretic. HEAD: Atraumatic. Normocephalic. EYES: Pupils equal and round and reactive. Extraocular motions intact. No scleral icterus. No injection or drainage. Fundi not examined. ENT: Hearing grossly normal. Nose without bleeding or purulent drainage. Throat without visible erythema, exudates, masses, or lesions. NECK: Trachea midline. Supple, nontender. No palpable thyroid enlargement or nodularity. CARDIOVASCULAR: Regular rate and rhythm without murmurs, gallops, or rubs. No JVD. Peripheral pulses symmetric. RESPIRATORY/CHEST: Symmetric, unlabored respirations. Clear to auscultation. Breath sounds equal bilaterally. No wheezes, rales, or rhonchi. GASTROINTESTINAL: Abdomen soft, non-tender, nondistended. No hepato-splenomegaly , or palpable masses. No guarding. Bowel sounds present. GENITOURINARY: Without palpable bladder distension. Zepeda catheter in place. MUSCULOSKELETAL: Extremities without clubbing, cyanosis, or edema. No joint tenderness or effusion noted. No calf tenderness. No mottling or clubbing. LYMPHATICS: No palpable cervical or supraclavicular adenopathy. NEUROLOGICAL: Awake and alert. Motor and sensory grossly within normal limits. Follows commands. Cognitively sharp. Moves all extremities. PSYCHIATRIC: No obvious anxiety/depression. no apparent hallucinations or other psychotic thought process. Diagnostic Tests Laboratory Laboratory Tests Test 06/29/17 19:17 06/30/17 00:43 06/30/17 03:10 06/30/17 09:18 Activated Partial Thromboplast Time 74.1 SEC (24.3-30.1) 62.0 SEC (24.3-30.1) 60.2 SEC (24.3-30.1) Potassium Level 3.8 MEQ/L (3.5-5.1) 3.6 MEQ/L (3.5-5.1) Phosphorus Level 2.4 MG/DL (2.5-4.9) Magnesium Level 1.7 MG/DL (1.5-2.5) White Blood Count 19.0 TH/MM3 (4.0-11.0) Red Blood Count 2.73 MIL/MM3 (4.50-5.90) Hemoglobin 8.5 GM/DL (13.0-17.0) Hematocrit 25.4 % (39.0-51.0) Mean Corpuscular Volume 93.2 FL (80.0-100.0) Mean Corpuscular Hemoglobin 31.0 PG (27.0-34.0) Mean Corpuscular Hemoglobin Concent 33.3 % (32.0-36.0) Red Cell Distribution Width 15.3 % (11.6-17.2) Platelet Count 438 TH/MM3 (150-450) Mean Platelet Volume 7.5 FL (7.0-11.0) Neutrophils (%) (Auto) 96.5 % (16.0-70.0) Lymphocytes (%) (Auto) 1.0 % (9.0-44.0) Monocytes (%) (Auto) 2.2 % (0.0-8.0) Eosinophils (%) (Auto) 0.0 % (0.0-4.0) Basophils (%) (Auto) 0.3 % (0.0-2.0) Neutrophils # (Auto) 18.3 TH/MM3 (1.8-7.7) Lymphocytes # (Auto) 0.2 TH/MM3 (1.0-4.8) Monocytes # (Auto) 0.4 TH/MM3 (0-0.9) Eosinophils # (Auto) 0.0 TH/MM3 (0-0.4) Basophils # (Auto) 0.1 TH/MM3 (0-0.2) CBC Comment AUTO DIFF Differential Comment AUTO DIFF CONFIRMED Platelet Estimate NORMAL (NORMAL) Platelet Morphology Comment NORMAL (NORMAL) Polychromasia 2.0 % (0.0-1.9) Prothrombin Time 14.9 SEC (9.8-11.6) Prothromb Time International Ratio 1.3 RATIO Blood Urea Nitrogen 34 MG/DL (7-18) Creatinine 0.54 MG/DL (0.60-1.30) Random Glucose 201 MG/DL (74-106) Total Protein 5.6 GM/DL (6.4-8.2) Albumin 1.8 GM/DL (3.4-5.0) Calcium Level 8.6 MG/DL (8.5-10.1) Alkaline Phosphatase 146 U/L (45-117) Aspartate Amino Transf (AST/SGOT) 18 U/L (15-37) Alanine Aminotransferase (ALT/SGPT) 24 U/L (12-78) Total Bilirubin 0.3 MG/DL (0.2-1.0) Sodium Level 144 MEQ/L (136-145) Chloride Level 111 MEQ/L (98-107) Carbon Dioxide Level 26.0 MEQ/L (21.0-32.0) Anion Gap 7 MEQ/L (5-15) Estimat Glomerular Filtration Rate 149 ML/MIN (>89) Test 07/01/17 04:44 07/02/17 01:40 07/02/17 05:00 07/02/17 06:50 White Blood Count 24.3 TH/MM3 (4.0-11.0) 33.9 TH/MM3 (4.0-11.0) Red Blood Count 3.04 MIL/MM3 (4.50-5.90) 3.13 MIL/MM3 (4.50-5.90) Hemoglobin 9.2 GM/DL (13.0-17.0) 9.3 GM/DL (13.0-17.0) Hematocrit 28.7 % (39.0-51.0) 29.6 % (39.0-51.0) Mean Corpuscular Volume 94.4 FL (80.0-100.0) 94.6 FL (80.0-100.0) Mean Corpuscular Hemoglobin 30.2 PG (27.0-34.0) 29.5 PG (27.0-34.0) Mean Corpuscular Hemoglobin Concent 32.0 % (32.0-36.0) 31.2 % (32.0-36.0) Red Cell Distribution Width 15.7 % (11.6-17.2) 16.1 % (11.6-17.2) Platelet Count 437 TH/MM3 (150-450) 450 TH/MM3 (150-450) Mean Platelet Volume 8.4 FL (7.0-11.0) 7.9 FL (7.0-11.0) Neutrophils (%) (Auto) 97.3 % (16.0-70.0) 98.5 % (16.0-70.0) Lymphocytes (%) (Auto) 1.1 % (9.0-44.0) 0.8 % (9.0-44.0) Monocytes (%) (Auto) 1.4 % (0.0-8.0) 0.4 % (0.0-8.0) Eosinophils (%) (Auto) 0.0 % (0.0-4.0) 0.0 % (0.0-4.0) Basophils (%) (Auto) 0.2 % (0.0-2.0) 0.3 % (0.0-2.0) Neutrophils # (Auto) 23.6 TH/MM3 (1.8-7.7) 33.4 TH/MM3 (1.8-7.7) Lymphocytes # (Auto) 0.3 TH/MM3 (1.0-4.8) 0.3 TH/MM3 (1.0-4.8) Monocytes # (Auto) 0.3 TH/MM3 (0-0.9) 0.2 TH/MM3 (0-0.9) Eosinophils # (Auto) 0.0 TH/MM3 (0-0.4) 0.0 TH/MM3 (0-0.4) Basophils # (Auto) 0.0 TH/MM3 (0-0.2) 0.1 TH/MM3 (0-0.2) CBC Comment AUTO DIFF AUTO DIFF Differential Total Cells Counted 100 100 Neutrophils % (Manual) 81 % (16-70) 90 % (16-70) Band Neutrophils % 11 % (0-6) 8 % (0-6) Lymphocytes % 3 % (9-44) Monocytes % 3 % (0-8) Neutrophils # (Manual) 22.8 TH/MM3 (1.8-7.7) 33.9 TH/MM3 (1.8-7.7) Myelocytes 2 % (0-0) 1 % (0-0) Differential Comment FINAL DIFF MANUAL FINAL DIFF MANUAL Toxic Granulation 1+ (NORMAL) Platelet Estimate NORMAL (NORMAL) NORMAL (NORMAL) Platelet Morphology Comment NORMAL (NORMAL) NORMAL (NORMAL) Activated Partial Thromboplast Time 74.9 SEC (24.3-30.1) 131.2 SEC (24.3-30.1) Blood Urea Nitrogen 38 MG/DL (7-18) 46 MG/DL (7-18) Creatinine 0.70 MG/DL (0.60-1.30) 1.02 MG/DL (0.60-1.30) Random Glucose 184 MG/DL (74-106) 126 MG/DL (74-106) Total Protein 5.5 GM/DL (6.4-8.2) 5.7 GM/DL (6.4-8.2) Albumin 1.8 GM/DL (3.4-5.0) 1.8 GM/DL (3.4-5.0) Calcium Level 8.5 MG/DL (8.5-10.1) 8.7 MG/DL (8.5-10.1) Alkaline Phosphatase 168 U/L (45-117) 152 U/L (45-117) Aspartate Amino Transf (AST/SGOT) 38 U/L (15-37) 508 U/L (15-37) Alanine Aminotransferase (ALT/SGPT) 39 U/L (12-78) 480 U/L (12-78) Total Bilirubin 0.5 MG/DL (0.2-1.0) 0.4 MG/DL (0.2-1.0) Sodium Level 147 MEQ/L (136-145) 150 MEQ/L (136-145) Potassium Level 3.7 MEQ/L (3.5-5.1) 4.0 MEQ/L (3.5-5.1) Chloride Level 114 MEQ/L (98-107) 116 MEQ/L (98-107) Carbon Dioxide Level 26.2 MEQ/L (21.0-32.0) 25.3 MEQ/L (21.0-32.0) Anion Gap 7 MEQ/L (5-15) 9 MEQ/L (5-15) Estimat Glomerular Filtration Rate 110 ML/MIN (>89) 71 ML/MIN (>89) Vancomycin Level Trough 19.4 MCG/ML (5.0-10.0) Metamyelocytes 1 % (0-1) Nucleated Red Blood Cells 2 /100 WBC (0-0) Toxic Vacuolation PRESENT (NONE SEEN) Prothrombin Time 67.5 SEC (9.8-11.6) Prothromb Time International Ratio 5.7 RATIO Test 07/02/17 08:11 07/02/17 11:45 Prothrombin Time 63.4 SEC (9.8-11.6) Prothromb Time International Ratio 5.3 RATIO Activated Partial Thromboplast Time 98.4 SEC (24.3-30.1) Blood Gas Puncture Site RT RADIAL Blood Gas Patient Temperature 98.6 Blood Gas HCO3 24 mmol/L (22-26) Blood Gas Base Excess 0.0 mmol/L (-2-2) Blood Gas Oxygen Saturation 92 % (90-100) Arterial Blood pH 7.38 (7.380-7.420) Arterial Blood Partial Pressure CO2 42 mmHg (38-42) Arterial Blood Partial Pressure O2 71 mmHg (61-120) Arterial Blood Oxygen Content 12.6 Vol % (12.0-20.0) Arterial Blood Carboxyhemoglobin 1.1 % (0-4) Arterial Blood Methemoglobin 0.8 % (0-2) Blood Gas Hemoglobin 9.7 G/DL (12.0-16.0) Oxygen Delivery Device BIPAP Blood Gas Ventilator Setting SEE COMMENT Blood Gas Inspired Oxygen 45 % Result Diagram: 07/02/17 0500 07/02/17 0140 Microbiology Microbiology Date/Time Source Procedure Growth Status 06/26/17 16:35 Blood Peripheral Aerobic Blood Culture - Final NO GROWTH IN 5 DAYS Complete 06/26/17 16:35 Blood Peripheral Anaerobic Blood Culture - Final NO GROWTH IN 5 DAYS Complete 06/26/17 08:13 Urine Catheterized Urine Urine Culture - Final NO GROWTH IN 48 HOURS. Complete Imaging Last Impressions Chest X-Ray 06/30/17 0900 Signed Impressions: Service Date/Time: Friday, June 30, 2017 08:40 - CONCLUSION: 1. Persistent mixed interstitial nodular disease throughout the left lung. This appears worse on the current exam. 2. Hyperinflated lungs and interstitial prominence likely related to chronic interstitial change. 3. Mild left pleural effusion. Galdino Bell MD Patient/Family Conference Issues Discussed: Draft/pending/template * Palliative care role, purpose, approach * Additional medical, psychosocial, and spiritual history * Patients general health, functional status, and cognitive changes in the months leading up to the current hospitalization * Patient/family understanding of the current medical problems * Patient/family understanding of prognosis * Patients goals of care as best understood from advance directives and/or conversations and/or values * Current medical treatment options and benefits/burdens of those options * Likely scenarios comparing ongoing aggressive care with a transition to comfort measures only * Questions answered to the best of my ability * Palliative care contact information provided Assessment and Plan Pertinent Non-Medical Issues Psychosocial: Spiritual: Legal: Ethical issues impacting care: Important Contacts Friend Maxime Bobo [phone] Prognosis Prognosis guarded considering advanced age, advanced emphysema with recent PE, and now sepsis/pneumonia. Has been requiring BiPAP, unable to wean to nasal cannula oxygen. Patient at high risk for clinical deterioration, setbacks and needing intubation/other invasive measures. . Code Status: Full Code Plan d/w dr Yi prior to seeing pt, CONSULT CANCELED, REQUESTED NOT TO SEE PT Legal decision maker: Goals: CODE STATUS: SYMPTOMS: -- -- Palliative care will continue to follow during hospital course as condition evolves, to assist patient/decision-maker with understanding of medical conditions, weighing benefits/burdens of treatment options, for clarification of goals of treatment. Additionally will assist with any symptoms of palliative concern Thank you for the opportunity to participate in the care of Mr. Banks. Attestation To help prompt me to consider important information that might be impacting today's encounter and assessment, information from prior notes written by myself or my colleagues may have been "brought forward" into today's note. My signature on this note, however, is an attestation that I personally performed the exam, history, and/or decision-making noted today, and, unless otherwise indicated, the interactions with patient, family, and staff as well as the review of records all occurred today. I also attest that the listed assessment and stated plan reflect my best clinical judgment today based on the combination of historical information, prior notes, and today's exam/ interactions. When time spent is documented, it refers only to time spent today by the signer, or if indicated, combined time spent today by collaborating physician/nurse practitioner. Ashley Lopez Jul 02, 2017 14:02
[2017-07-02] MEDS ORDERED: SODIUM CHLORID 0.9% 500 ML INJ 500 ML IV ONE (14:30)
[2017-07-02] MEDS ORDERED: TERBUTALINE INJ 1 MG/ML AMP SQ PRN (14:45)
[2017-07-02] MEDS ORDERED: NOREPINEPHRINE-DEXTROSE DRIP 250 ML IV PRN (14:45)
[2017-07-02 14:52] LABS: BLOOD GAS BASE EXCESS -1.3 mmol/L (-2-2); BLOOD GAS HCO3 24 mmol/L (22-26); BLOOD GAS METHEMOGLOBIN 0.8 % (0-2); BLOOD GAS O2 HGB SATURATION 93 % (90-100); BLOOD GAS OXYGEN CONTENT 11.5 Vol % (12.0-20.0); BLOOD GAS PCO2 47 mmHg (38-42); BLOOD GAS PO2 80 mmHg (61-120); BLOOD GAS TOTAL HGB 8.7 G/DL (12.0-16.0); CRITICAL VALUE NO; TEMP CORR TO 98.6
[2017-07-02 14:53] LABS: DRAW SITE RT BRACHIAL; FIO2 50 %; NUMBER OF ARTERIAL PUNCTURES 1; OXYGEN DEVICE VENTILATOR; STAT YES; ULNAR PULSE PRESENT
--- NOTE | 2017-07-02 14:56 | RADRPT ---
EXAM DATE/TIME: 07/02/2017 14:18 [facility] COMPARISON: CHEST SINGLE AP, June 30, 2017, 8:40. INDICATIONS : Atelectasis. MEDICAL HISTORY : None. SURGICAL HISTORY : None. ENCOUNTER: Subsequent ACUITY: 4 - 6 days PAIN SCORE: Non-responsive. LOCATION: Bilateral chest FINDINGS: A single view of the chest demonstrates endotracheal tube in satisfactory position. Right central loreto e in superior vena cava. Extensive left lung consolidation and right basilar airspace disease similar to June 30. Small effusions, left greater than right are stable. CONCLUSION: 1. Intubation with endotracheal tube in good position. No pneumothorax. Alfredo Kim MD on July 02, 2017 at 14:48 Board Certified Radiologist. This report was verified electronically.
--- NOTE | 2017-07-02 18:13 | HHI.PR ---
Subjective Remarks 76 YOWm with Pneumonia, resp insuff Pt deteriorated and intubated sedated No fever Objective Vital Signs Vital Signs Date Time Temp Pulse Resp B/P (MAP) Pulse Ox O2 Delivery O2 Flow Rate FiO2 07/02/17 16:04 96 50 07/02/17 16:00 98.7 63 16 91/54 (66) 96 Arterial Line 07/02/17 16:00 63 07/02/17 14:05 100 50 07/02/17 14:00 111 07/02/17 12:57 98 45 07/02/17 12:00 98.7 87 29 129/64 (85) 98 07/02/17 12:00 87 07/02/17 10:00 99 07/02/17 09:30 91 Venturi Mask 6.00 50 07/02/17 08:08 97 45 07/02/17 08:00 98.9 99 24 150/79 (102) 97 07/02/17 08:00 99 07/02/17 07:00 97 Bi-Pap 35 07/02/17 06:00 100 07/02/17 04:04 95 45 07/02/17 04:00 100 07/02/17 04:00 99.0 100 28 128/76 (93) 94 07/02/17 02:00 96 07/02/17 00:40 100 BiPAP 45 07/02/17 00:33 100 45 07/02/17 00:00 105 07/02/17 00:00 99.1 105 32 130/72 (91) 94 07/01/17 22:00 110 07/01/17 21:22 94 45 07/01/17 20:00 110 07/01/17 20:00 99.0 110 32 137/85 (102) 94 07/01/17 19:00 92 Bi-Pap 34 07/01/17 18:15 91 Venturi Mask 50 I/O 07/01/17 07/01/17 07/01/17 07/02/17 07/02/17 07/02/17 07:00 15:00 23:00 07:00 15:00 23:00 Intake Total 1265 ml 1991 ml 707 ml 276 ml Output Total 350 ml 200 ml 600 ml Balance 915 ml 1791 ml 107 ml 276 ml Intake Oral 260 ml 120 ml IV Total 1005 ml 1871 ml 707 ml 276 ml Output Urine Total 350 ml 200 ml 600 ml # Bowel Movements 0 0 Result Diagram: 07/02/17 0500 07/02/17 0140 Objective Remarks GENERAL: Frail elderly male, on vent SKIN: Warm and dry. HEAD: Normocephalic. EYES: No scleral icterus. No injection or drainage. NECK: Supple, trachea midline. No JVD or lymphadenopathy. CARDIOVASCULAR: Regular rate and rhythm without murmurs, gallops, or rubs. RESPIRATORY: Breath sounds equal bilaterally. No accessory muscle use. GASTROINTESTINAL: Abdomen soft, non-tender, nondistended. MUSCULOSKELETAL: No cyanosis, or edema. BACK: Nontender without obvious deformity. No CVA tenderness. A/P Assessment and Plan VDRF extensive Pneumonia Hypotension COPD PLAN: Vent Support Cont Abx Neosyn to support BP Aerosol nebs Check culture Juan F Messer MD Jul 02, 2017 18:13
[2017-07-02] MEDS ORDERED: LORazepam 2 MG/ML VIAL ONE (19:28)
[2017-07-04] MEDS ORDERED: PHARMACY ORDERED LAB ONE (01:45)
--- NOTE | 2017-07-29 17:58 | HHI.DS ---
Discharge Summary Admission Date Jun 26, 2017 at 02:19 Discharge Date: Jul 02, 2017 Admitting Diagnosis Pneumonia, hypoxia (1) Acute respiratory failure with hypoxemia ICD Code: J96.01 - Acute respiratory failure with hypoxia Diagnosis: Principal (2) Pneumonia ICD Code: J18.9 - Pneumonia, unspecified organism Status: Acute Brief History Written by ABE Johnston acting as scribe for [Delgado] on 06/26/17 at 04: 49. 76 y/o male with a history of COPD presented to the ED with complaints of shortness of breath. He states he was at home and had increased cough with little sputum production. He is unsure if he had a fever at home. He denies any chest pain, nausea, vomiting, dizziness, or abdominal pain. He was just recently discharged on on Coumadin for a PE. Patient is currently on Bipap to assist with breathing and will be transferred to the ICU for closer monitoring. Hospital Course 06/26: 76-year-old male with a medical history significant for emphysema and recent diagnosis of PE in May 2017 for which she was admitted at [facility] and was subsequently [facility] to a detention facility on Coumadin which she has been taking. Patient presented with a cough going on for the last week with progressive shortness of breath. Per documentation EMS stated he had an elevated temperature on their arrival to the nursing facility and the nurses that were rounding found him to be acutely short of breath with an oxygen saturation in the low 80s. He was placed on a nonrebreather facemask and brought to the hospital at [facility]. He was evaluated in the ER where his chest x-ray revealed new infiltrates involving left lung and he was started on empiric antibiotics/ steroids and admitted by the hospitalist service to the floor however his respiratory status declined and he was initiated on BiPAP and transferred to the ICU. She did have a elevated troponin of 0.15 noted in the ER and was given aspirin. Critical care was consulted following patient's transfer to the ICU due to worsening respiratory failure requiring BiPAP and possible need for intubation. I evaluated the patient immediately on being notified by nursing staff and adjusted BiPAP, ordered a stat ABG and bronchodilator treatments. Patient was also looking anxious on BiPAP using accessory muscles of respiration hence a Precedex drip was ordered. History was obtained by reviewing records and discussion with patient and nursing staff. 06/27: On BiPAP overnight. Started on Levophed and vasopressin for hypotension yesterday. This morning he is drowsy though easily arousable on BiPAP with full facemask. 06/28: Off BiPAP since yesterday, tolerating Ventimask. Awake and alert, following commands. Titrated off Levophed. On low-dose vasopressin. Being started on heparin GTT as INR below 2 after administering vitamin K on 06/27 for INR greater than 8. 07/02: emergent reconsult for respiratory decompensation. patient on BiPAP, but clinically declining, was on NC this AM, now tachypneic with RR in the 40s, more labored, patient complains of tiring out. ABG is compensated, but visibly this cachectic elderly male in severe distress and complains of getting tired. I had a brief conversation about goals of care with him. he is oriented x 3 and appears to have capacity to make his own healthcare decisions. he states he wants aggressive care including a breathing tube if necessary. proceeded with intubation (see separate procedure note for details). Patient continued to want aggressive care and an LTAC bed was available. patient is a good candidate and was transferred to LTAC facility for ongoing pulmonary weaning. Pt Condition on Discharge: Stable Discharge Disposition: Trnsfr to Other Facility Discharge Instructions DIET: Follow Instructions for: On Tube Feeding Speech Therapy-Diet Recommends: Honey Thickened Liquids, Pureed Activities you can perform: Regular-No Restrictions Chris Yi MD Jul 29, 2017 17:57
== END 2017-07-02 19:39 | DRG 871 ==
LOC: NEPE 00:16 → NEDA 02:19 → N05A 03:33 → N03B 06:28
PROVIDERS: ADMIT Internal Medicine; ATTEND Hospitalist
PROC: 02HV33Z Insertion of Infusion Device into Superior Vena Cava, Percutaneous Approach (ICD-10-PCS; principal; 2017-06-26)
PROC: 5A09457 Assistance with Respiratory Ventilation, 24-96 Consecutive Hours, Continuous Positive Airway Pressure (ICD-10-PCS; 2017-06-26)
PROC: 03HY32Z Insertion of Monitoring Device into Upper Artery, Percutaneous Approach (ICD-10-PCS; 2017-06-28)
PROC: 5A09457 Assistance with Respiratory Ventilation, 24-96 Consecutive Hours, Continuous Positive Airway Pressure (ICD-10-PCS; 2017-06-29)
PROC: 5A1935Z Respiratory Ventilation, Less than 24 Consecutive Hours (ICD-10-PCS; 2017-07-02)
PROC: 0BH18EZ Insertion of Endotracheal Airway into Trachea, Via Natural or Artificial Opening Endoscopic (ICD-10-PCS; 2017-07-02)
DX: A41.9 Sepsis, unspecified organism (principal); I21.4 Non-ST elevation (NSTEMI) myocardial infarction; J96.01 Acute respiratory failure with hypoxia; J96.02 Acute respiratory failure with hypercapnia; J44.0 Chronic obstructive pulmonary disease with (acute) lower respiratory infection; R65.21 Severe sepsis with septic shock; J18.9 Pneumonia, unspecified organism; I50.9 Heart failure, unspecified; J44.1 Chronic obstructive pulmonary disease with (acute) exacerbation; F17.210 Nicotine dependence, cigarettes, uncomplicated; Z86.711 Personal history of pulmonary embolism; Z79.01 Long term (current) use of anticoagulants
CPT/HCPCS: 31500; 36556; 36600; 71010; 76937; 80048; 80053; 80061; 80202; 81001; 82550; 82805; 82948; 83605; 83735; 83880; 84100; 84132; 84484; 85007; 85025; 85027; 85384; 85610; 85730; 87040; 87070; 87086; 87205; 87449; 87641; 93005; 93308; 94002; 94003; 94640; 94664; 99285; C9113; J0456; J0692; J1644; J1815; J1940; J1956; J2060; J2250; J2920; J2930; J3370; J3430; J7030; J7040; J7050